=== PATIENT | male | born 1940 | race Caucasian/White ===

== ENCOUNTER 2016-08-29 18:30 | Inpatient (IN) ==
[2016-08-29] MEDS ORDERED: NITROGLYCERIN 2% OINT 1 INCH/GM PACK TOP STA (18:52)
[2016-08-29] MEDS ORDERED: ALUM/MAG/SIMETH/LIDO VISC 1:1 30 ML BOTTLE PO STA (18:52)
[2016-08-29] MEDS ORDERED: ONDANSETRON 4 MG/2 ML VIAL IV STA (18:52)
[2016-08-29] MEDS ORDERED: MORPHINE 2 MG/1 ML SYRINGE IV STA (18:52)
[2016-08-29] MEDS ORDERED: ASPIRIN 325 MG TABLET PO STA (18:52)
--- NOTE | 2016-08-29 18:56 | EKG Report ---
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
[2016-08-29] MEDS ORDERED: SODIUM CHLORIDE 0.9% 1,000 ML IV STA (19:02)
--- NOTE | 2016-08-29 19:02 | Emergency Department Note ---
Coleman Taylor Brittany, am scribing for, and in the presence of, Yared Conrad MD 19:01. Houston Taylor Charles R, MD, personally performed the services described in this documentation, ascribed by Cari Cee in my presence, and it is both accurate and complete [id number] . Arrival - Arrival Chief Complaint: Syncope Stated Complaint: syncopal episode ED Nursing Triage Note: Patient was out walking his dogs this evening; he reports walking the dogs one half mile when he felft faint and started having pain in his chest, he broke out in a sweat, experienced shortness of breath, he report his pain was 6/10 on a numerical pain scale. He fell backwards into the street; and has an abrasion on the back on his head. 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 Patient reports that he was out walking his dogs this evening and upon getting a mile and a half he became faint and began to have chest pain. He became diaphoretic , short of breath and attempted to sit down but fell backwards into the street. Patient reports that he had two falls two days ago with which he states he lost his balance. Patient reports a history of Cardiac Catheterization with stents placed x2 per Dr. Mix. At this time patient's chest pain has resolved. He is not having any shortness of breath, headache, or neck pain. He denies any slurred speech, facial numbness, or facial droop. Family reports that patient did have some bilateral hand tremors. He is currently on Plavix. He has a history of IDDM, but did not have a chance to check his levels today. Patient is on oxygen 2L via NC in room. Patient has no other complaint/pain in the ED at this time. 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[employer]) Consistency: now resolved Allergies/Adverse Reactions: Allergies Allergy/AdvReac Type Severity Reaction Status Date / Time No Known Allergies Allergy Unverified 05/10/15 11:00 Home Medications: Home Medications Medication Instructions Recorded Confirmed Type Allopurinol 300 mg PO DAILY 05/11/15 05/11/15 History Aspirin [Ecotrin] 81 mg PO DAILY 05/11/15 05/11/15 History Clopidogrel [Plavix] 75 mg PO DAILY 05/11/15 05/11/15 History Insulin Aspart [NovoLOG] 20 unit SUBCUT BID 05/11/15 05/11/15 History Insulin NPH Human Isophane 40 unit SUBCUT BID 05/11/15 05/11/15 History [NovoLIN N] Quinapril [Accupril] 20 mg PO DAILY 05/11/15 05/11/15 History Rosuvastatin Calcium [Crestor] 5 mg PO BEDTIME 05/11/15 05/11/15 History Review of System - Review of System 12 point system: reviewed and no additional remarkable complaints except as stated - Review of System Constitutional: Present: diaphoresis Respiratory: Present: respiratory distress Cardiovascular: Present: chest pain, syncope Medical,Surgical,& Family Hx - Medical History Cardio: History of: Hypertension, Cardiovascular Problems (cardiac stents x2 per Dr. Mix) Neurology: No history of: Seizures Endocrine: History of: Diabetes Mellitus (IDDM), Dyslipidemia Rheumatology: History of;: Rheumatoid Arthritis - Surgical History Abdominal Surgeries: Surgical HX of: Appendectomy, Colonoscopy - Family History Family History: Reports;: Family Stroke (grandmother) Comment Only: Family Heart Disease (aunt, and grandfather had a AR X2) - Social History Smoking Status: Never smoker Type of Drug Use: None Exam Vital Signs: Vital Signs Temperature 99.7 F H 08/29/16 18:31 Pulse Rate 92 H 08/29/16 19:00 Respiratory Rate 20 08/29/16 18:31 Blood Pressure 131/59 08/29/16 19:00 - General General appearance: alert, in no apparent distress - Head Head exam: Present: normocephalic, normal inspection. Absent: atraumatic ( large abrasion noted to the occipital region, pain at base) - Eye Eye exam: Present: normal appearance, PERRL, EOMI - ENT ENT exam: Present: normal exam, normal oropharynx - Neck Neck exam: Present: normal inspection, full ROM, trachea midline - Chest Chest inspection: Present: normal inspection, symmetric chest wall rise - Respiratory Respiratory exam: Present: normal lung sounds bilaterally. Absent: rales, rhonchi, wheezes - Cardiovascular Cardiovascular exam: Present: regular rate, irregular rhythm (irregularly regular), normal heart sounds. Absent: normal rhythm - Abdominal Exam Abdominal exam: Present: soft, normal bowel sounds. Absent: distention, tenderness - Extremities Exam Extremities exam: Present: normal inspection - Back Exam Back exam: Present: normal inspection - Neurological Exam Neurological exam: Present: alert, oriented X3, CN II-XII intact. Absent: motor sensory deficit - Psychiatric Psychiatric exam: Present: normal affect - Skin Skin exam: Present: warm, dry Course - Consultations Consultation #1: Dr. Gross consult to will admit patient for Dr. Mix. We a long discussion about whether this patient has pulmonary embolus or not. Patient is allergic to iodine and all IV dye. Patient does not wish to have this procedure done because of this. We are going to give him Lovenox and do a VQ lung scan in the morning and possibly CT PE in the morning if need be. Patient is aware of this information I explained to him the pros and cons of not doing the CT and missing this diagnosis we will going ahead treated patient agrees to plan we will place patient in telemetry Time: 20:56 Results - Labs CBC & BMP: 08/29/16 18:56 08/29/16 18:56 Lab Results: I have reviewed the patients labs Labs: Laboratory Tests 08/29/16 18:56 WBC 7.6 RBC 3.28 L Hgb 11.5 L Hct 34.5 L MCV 105.2 H MCH 35 H MCHC 33.3 RDW 12.7 Plt Count 149 MPV 10.5 Neut % (Auto) 87.4 H Lymph % (Auto) 4.9 L [place] % (Auto) 5.6 Eos % (Auto) 1.3 Baso % (Auto) 0.1 Neut # (Auto) 6.7 Lymph # (Auto) 0.4 L [place] # (Auto) 0.4 Eos # (Auto) 0.1 Baso # (Auto) 0.0 Immature Gran % 0.7 Nucleated RBC % 0.0 Immature Gran # 0.05 Nucleated RBCs # 0.00 Laboratory Tests 08/29/16 08/29/16 08/29/16 18:56 18:56 18:56 Total Counted Immature Gran % Nucleated RBC % Immature Gran # Segmented Neutrophils Lymphocytes Monocytes Nucleated RBCs # Platelet Estimate Hypochromasia Poikilocytosis Anisocytosis Macrocytosis Tear Drop Cells INR 1.0 PT Patient/Control Mix 10.1 D-Dimer, Quantitative 6.0 Sodium 139 Potassium 4.8 Chloride 109 H Carbon Dioxide 22 Anion Gap 12.8 BUN 24 H Creatinine 1.40 H GFR Calculation 67 BUN/Creatinine Ratio 17.00 Glucose 166 H Calculated Osmolality 284.5 Calcium 7.9 L Magnesium 1.8 Total Bilirubin < 0.39 AST 19 ALT 26 Alkaline Phosphatase 55 Troponin I B-Natriuretic Peptide 34 Total Protein 5.9 L Albumin 3.2 L Globulin 2.7 Albumin/Globulin Ratio 1.1 Lipase 349.0 08/29/16 08/29/16 18:56 18:56 Total Counted 100 Immature Gran % 0.7 Nucleated RBC % 0.0 Immature Gran # 0.05 Segmented Neutrophils 92 H Lymphocytes 5 L Monocytes 3 Nucleated RBCs # 0.00 Platelet Estimate Adequate Hypochromasia Slight Poikilocytosis 1+ Anisocytosis 2+ Macrocytosis 2+ Tear Drop Cells Few INR PT Patient/Control Mix D-Dimer, Quantitative Sodium Potassium Chloride Carbon Dioxide Anion Gap BUN Creatinine GFR Calculation BUN/Creatinine Ratio Glucose Calculated Osmolality Calcium Magnesium Total Bilirubin AST ALT Alkaline Phosphatase Troponin I 0.026 B-Natriuretic Peptide Total Protein Albumin Globulin Albumin/Globulin Ratio Lipase - Diagnostic Findings Procedure: CT: report reviewed by me (CT head: 1. 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 2. Left maxillary sinusitis. 3. No acute hemorrhage, infarction, or mass effect. 4. Small vessel ischemic change. CT Cervical Spine: 1. No fracture or dislocation. 2. Intervertebral disc space narrowing at C5-6, C6-7 and degenerative spondylosis. 3. Vascular calcinosis carotid arteries. ) Critical Care Time Critical Care Time: Yes Total Critical Care Time: 60 Disposition Clinical Impression: Vasovagal syncope, Possible pulmonary embolus, Chest pain Case discussed with: patient, patient's family Disposition: Still a Patient Condition: Guarded Time of Disposition: 20:58
[2016-08-29 19:04] LABS: Basophils % 0.1 % (0.0-0.8); Eosinophils # 0.1 10*3/uL (0.0-0.87); Eosinophils % 1.3 % (0.00-10.9); Hematocrit 34.5 VOL% (42.0-52.0); Hemoglobin 11.5 GM/DL (14.0-18.0); Immature Granulocytes % 0.7 %; Immature Granulocytes Absolute 0.05 #; Lymphocytes # 0.4 10*3/uL (1.4-4.0); Lymphocytes % 4.9 % (21.2-54.2); Mean Corpuscular HGB Conc 33.3 GM/DL (32-36); Mean Corpuscular Hemoglobin 35 PG (27-34); Mean Corpuscular Volume 105.2 FL (87-102); Mean Platelet Volume 10.5 FL (9.6-12.0); Monocytes # 0.4 10*3/uL (0.11-0.8); Monocytes % 5.6 % (1.7-12.7); Neutrophils # 6.7 10*3/uL (1.4-7.4); Neutrophils % 87.4 % (38.7-73.9); Platelet Count 149 T/CUMM (130-400); Red Blood Count 3.28 MC/CUMM (3.8-5.5); Red Cell Distribution Width 12.7 % (9.3-17.3); White Blood Count 7.6 T/CUMM (4-12)
[2016-08-29 19:16] LABS: PT Patient Result 10.1 SECS
--- NOTE | 2016-08-29 19:17 | CT Report ---
Exam: CT scan of brain without contrast Date: 08/29/2016 Indication: Status post fall head trauma pain Comparison: None Patient's classification: Emergency department Technical: Images were obtained from the skull base to the vertex without the use of intravenous contrast. Dose reduction was performed with decreasing kv and mA and automated exposure Total DLP: 1053.4 mGy*cm Findings: The brainstem is unremarkable. The exam reveals encephalomalacia change and old infarction suspected in the right cerebellum. Vascular plaque in the vertebral arteries present. The ventricles are slightly prominent with small vessel ischemic changes present. Calcification of the falx cerebri present. There is near complete opacification left maxillary sinus. Remaining paranasal sinuses and mastoids globes and sella are intact calvarium is unremarkable Impression: 1. 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 Left maxillary sinusitis 3. No acute hemorrhage, infarction or mass effect 4. Small vessel ischemic change. PROCEDURE INTERPRETED AT [facility] DEPARTMENT OF RADIOLOGY Final Report Signed by: Dr. Brandon Chisholm
--- NOTE | 2016-08-29 19:21 | CT Report ---
Exam:CT cervical spine wo con Date:08/29/2016 6:52 PM Indication: Neck pain secondary to fall Comparison: None Total DLP: 504.2 mGy*cm Technical: Sagittal axial and coronal imaging was available for review with out the use of intravenous contrast. Dose reduction was performed with decreasing kv and mA and automated exposure Findings: 7 cervical vertebral bodies are demonstrated. The vertebral body heights, lamina, pedicles, and posterior elements are intact. There is disc space narrowing at C5-C6 and C6-7 with degenerative spondylosis and posterior spur formation present most prominent at C5-6 but also seen C6-7. Attempted bridging syndesmophyte anteriorly at C5-C6 and C6-7. The arch at C1 and C2 and odontoid process are intact. The neural foramina canals are narrowed at C5-6 and C6-7 with facet arthropathy changes. Vascular calcifications of the carotid arteries present bilaterally. No other significant soft tissue abnormalities are demonstrated. Impression 1. No fracture or dislocation. 2. Intervertebral disc space narrowing at C5-6, C6-7 and degenerative spondylosis 3. Vascular calcinosis carotid arteries PROCEDURE INTERPRETED AT [facility] DEPARTMENT OF RADIOLOGY Final Report Signed by: Dr. Brandon Chisholm
--- NOTE | 2016-08-29 19:22 | XRay Report ---
Exam: XR chest 1V portable Date: 08/29/2016 6:52 PM Indication: Chest pain Comparison: 05/11/2015 Technical: AP portable Findings: Mild cardiac enlargement. No obvious consolidating infiltrates or effusions with mild thickening of the minor fissure. Bony structures reveal no acute findings. Impression: 1. Cardiomegaly without decompensation PROCEDURE INTERPRETED AT [facility] DEPARTMENT OF RADIOLOGY Final Report Signed by: Dr. Brandon Chisholm
[2016-08-29 19:23] LABS: Alanine Aminotransferase 26 U/L (16-61); Albumin 3.2 G/DL (3.4-5.0); Alkaline Phosphatase 55 U/L (45-117); Aspartate Amino Transferase 19 U/L (0-37); Bilirubin,Total < 0.39 MG/DL (0.2-1.0); Blood Urea Nitrogen 24 MG/DL (7-18); Calcium 7.9 MG/DL (8.5-10.1); Glucose 166 MG/DL (74-106); Magnesium 1.8 MG/DL (1.8-2.4); Osmolality,Calculated 284.5 MOS/KG (273-304); Potassium 4.8 MMOL/L (3.5-5.1); Sodium 139 MMOL/L (136-145); Total Protein 5.9 G/DL (6.4-8.3)
[2016-08-29] MEDS ORDERED: NITROGLYCERIN 2% OINT 1 INCH/GM PACK TOP ONE (19:26)
[2016-08-29] MEDS ORDERED: ONDANSETRON 4 MG/2 ML VIAL ONE (19:26)
[2016-08-29] MEDS ORDERED: MORPHINE 2 MG/1 ML SYRINGE ONE (19:27)
[2016-08-29] MEDS ORDERED: ALUM/MAG/SIMETH/LIDO VISC 1:1 30 ML BOTTLE PO ONE (19:27)
[2016-08-29] MEDS ORDERED: ASPIRIN 325 MG TABLET ONE (19:27)
[2016-08-29 19:28] LABS: Anisocytosis 2+; Lymphocytes 5 % (20-55); Macrocytosis 2+; Platelet Estimate Adequate; Poikilocytosis 1+; Segmented Neutrophils 92 % (50-85); Tear Drop Cells Few; Total Cells Counted 100
[2016-08-29 19:29] LABS: Hypochromasia Slight
[2016-08-29] MEDS ORDERED: ENOXAPARIN 100 MG/ML SYRINGE SUBCUT STA (20:35)
[2016-08-29] MEDS ORDERED: ENOXAPARIN 120 MG/0.8 ML SYRINGE SUBCUT ONE (20:40)
[2016-08-29] MEDS ORDERED: MAGNESIUM SULF RIDER 2 GM in PREMIX 1 EACH IV PRN (22:46)
[2016-08-29] MEDS ORDERED: ONDANSETRON 4 MG/2 ML VIAL IV PRN (22:46)
[2016-08-29] MEDS ORDERED: POTASSIUM CHLORIDE 20 MEQ TABLET PO PRN (22:46)
[2016-08-29] MEDS ORDERED: ALBUTEROL/IPRATROPIUM 3 ML NEB RESP TX PRN (22:46)
[2016-08-29] MEDS ORDERED: MORPHINE 2 MG/1 ML SYRINGE IV PRN (22:46)
[2016-08-29] MEDS ORDERED: DEXTROSE 50% 25 GM/50 ML VIAL IV PRN (22:46)
[2016-08-29] MEDS ORDERED: GLUCAGON 1 MG VIAL IM PRN (22:46)
[2016-08-29] MEDS ORDERED: SODIUM CHLORIDE 0.9% 1,000 ML IV SCH (22:46)
[2016-08-29] MEDS ORDERED: MAGNESIUM SULF RIDER 4 GM in PREMIX 1 EACH IV PRN (22:46)
[2016-08-30] MEDS: INSULIN REGULAR 100 UNIT/ML SUBCUT SCH ×5 (00:20→23:26)
[2016-08-30] MEDS: NITROGLYCERIN 2% OINT 1 INCH/GM PACK TOP SCH ×4 (00:21→18:27)
[2016-08-30 00:44] LABS: Apearance,Urine CLEAR (Clear); Bilirubin,Urine Negative (Negative); Blood, Urine Negative (Negative); Glucose,Urine (UA) Negative (Negative); Hyaline Casts,Urine 5 /LPF (0-3); Ketones,Urine Negative (Negative); Mucus,Urine Occasional /LPF (Occasional); Nitrite,Urine Negative (Negative); Protein,Urine 30 MG/DL; RBC,Urine <1 /HPF (0-4); Urine Color Yellow (Yellow); Urine Specific Gravity 1.015 (1.001-1.035); Urine Urobilinogen < 2.0 EU/DL (0.2-1.0); WBC,Urine 1 /HPF (0-6)
[2016-08-30 02:08] LABS: Basophils % 0.3 % (0.0-0.8); Eosinophils % 0.6 % (0.00-10.9); Hematocrit 31.9 VOL% (42.0-52.0); Hemoglobin 10.9 GM/DL (14.0-18.0); Immature Granulocytes % 0.3 %; Immature Granulocytes Absolute 0.02 #; Lymphocytes # 0.5 10*3/uL (1.4-4.0); Lymphocytes % 6.9 % (21.2-54.2); Mean Corpuscular HGB Conc 34.2 GM/DL (32-36); Mean Corpuscular Hemoglobin 35 PG (27-34); Mean Corpuscular Volume 103.6 FL (87-102); Mean Platelet Volume 10.8 FL (9.6-12.0); Monocytes # 0.4 10*3/uL (0.11-0.8); Monocytes % 5.7 % (1.7-12.7); Neutrophils # 5.6 10*3/uL (1.4-7.4); Neutrophils % 86.2 % (38.7-73.9); Platelet Count 141 T/CUMM (130-400); Red Blood Count 3.08 MC/CUMM (3.8-5.5); White Blood Count 6.5 T/CUMM (4-12)
[2016-08-30 02:23] LABS: Alanine Aminotransferase 22 U/L (16-61); Albumin 3.1 G/DL (3.4-5.0); Alkaline Phosphatase 49 U/L (45-117); Aspartate Amino Transferase 17 U/L (0-37); Bilirubin,Total < 0.39 MG/DL (0.2-1.0); Blood Urea Nitrogen 21 MG/DL (7-18); Calcium 8.1 MG/DL (8.5-10.1); Cholesterol 102 MG/DL (50-200); Glucose 84 MG/DL (74-106); HDL Cholesterol 45 MG/DL (40-60); Magnesium 1.9 MG/DL (1.8-2.4); Osmolality,Calculated 282.3 MOS/KG (273-304); Potassium 4.6 MMOL/L (3.5-5.1); Risk Ratio 2.27; Sodium 141 MMOL/L (136-145); Total Protein 5.6 G/DL (6.4-8.3); Triglycerides 73 MG/DL (2-150); VLDL CHOLESTEROL 14.6 MG/DL
--- NOTE | 2016-08-30 08:00 | EKG Report ---
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
--- NOTE | 2016-08-30 08:12 | Ultrasound Report ---
Bilateral lower extremity venous Doppler with vasques scale, Spectral Doppler and color-flow analysis performed and interpreted. Indication: Shortness of breath. Scanning over both common femoral veins, superficial femoral veins, greater saphenous veins and popliteal veins demonstrates normal compressibility, color flow, and augmentation. Impression: No evidence of DVT seen in either lower extremity. PROCEDURE INTERPRETED AT [facility] DEPARTMENT OF RADIOLOGY Final Report Signed by: Dr. Chery Peralta
--- NOTE | 2016-08-30 08:37 | Nuclear Medicine Report ---
Lung ventilation and perfusion imaging. Indication: Shortness of breath. Following aerosolized administration of 40 mCi technetium 99m DTPA, imaging was performed over the lungs in the standard projections. Following the intravenous administration of 5 mCi technetium 99m MAA, imaging was performed over the lung maurice in the same standard projections. Available for comparison, chest x-ray from yesterday. There is a matched nonsegmental ventilation and perfusion defect along the fissure of the left lung. No corresponding chest x-ray finding. Impression: Using revised PIOPED criteria, these findings are low probability for pulmonary thromboembolism. PROCEDURE INTERPRETED AT [facility] DEPARTMENT OF RADIOLOGY Final Report Signed by: Dr. Chery Peralta
--- NOTE | 2016-08-30 09:08 | EKG Report ---
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
--- NOTE | 2016-08-30 09:28 | Cardiology History & Physical ---
Assessment and Plan (1) CAD (coronary artery disease) Status: Acute Assessment and plan: 76-year-old male, CAD, status post remote LAD PCI, known diagonal disease. Presenting with chest pain panel nonspecific nipple changes, borderline troponin. Currently, chest pain-free, hemodynamically stable. Lower extremity DVT study, VQ scan negative. Recent frequent falls. -Continue aspirin, Plavix, full dose Lovenox for now. Add metoprolol 25 mg twice daily. -PPI -Continue statin. -He got a VQ scan last night, and is unable to walk on a treadmill. We will plan to proceed with pharmacological stress test tomorrow a.m. 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 Majano is a 76 year old male, followed by Dr. Mix. History of coronary artery disease, status post LAD stenting 2010, had a residual diagonal disease, which was managed medically. Stress test in 2014 showed anterolateral disease, which was also managed medically. He felt fine, but a few weeks ago, he tripped a few times and injured his knee. Yesterday, while walking his dog, he noticed sudden onset chest pain, diaphoresis and shortness of breath, and he tripped again. Admission EKG showed nonspecific repolarization changes, no significant change compared to prior EKG. Initial troponin was normal, the repeat set was borderline. Blood pressures heart rate is well controlled. He is now feeling better, the chest pain resolved. History of iv dye allergy but no issues with cardiac catheterizations in the past. He also has diabetes hyperlipidemia, controlled with insulin and statin. HTN, well controlled. DVT study and VQ scan was normal. Head CT showed all cerebrovascular disease. Got full dose aspirin and Lovenox in the ER, the pain resolved. Home Medications Medication Instructions Recorded Confirmed Type Allopurinol 300 mg PO DAILY 05/11/15 08/29/16 History Aspirin [Ecotrin] 81 mg PO DAILY 05/11/15 08/29/16 History Clopidogrel [Plavix] 75 mg PO DAILY 05/11/15 08/29/16 History Insulin Aspart [NovoLOG] 20 unit SUBCUT BID 05/11/15 08/29/16 History Insulin NPH Human Isophane 45 unit SUBCUT BID 05/11/15 08/29/16 History [NovoLIN N] Quinapril [Accupril] 20 mg PO DAILY 05/11/15 08/29/16 History Rosuvastatin Calcium [Crestor] 5 mg PO BEDTIME 05/11/15 08/29/16 History Allergies Allergy/AdvReac Type Severity Reaction Status Date / Time ivp dye Allergy HIVES Uncoded 08/29/16 21:35 12 point system: reviewed and no additional remarkable complaints except as stated Medical,Surgical,& Family Hx - Medical History Cardio: History of: Hypertension, Cardiovascular Problems (cardiac stents x2 per Dr. Mix) Neurology: No history of: Seizures Endocrine: History of: Diabetes Mellitus (IDDM), Dyslipidemia Rheumatology: History of;: Rheumatoid Arthritis - Surgical History Abdominal Surgeries: Surgical HX of: Appendectomy, Colonoscopy - Family History Family History: Reports;: Family Stroke (grandmother) Comment Only: Family Heart Disease (aunt, and grandfather had a MN X2) - Social History Smoking Status: Never smoker Type of Drug Use: None Cardiology Physical Exam - Constitutional Vitals: Vital Signs Temp Pulse Resp BP Pulse Ox 98.5 F 73 16 111/73 95 08/30/16 04:00 08/30/16 04:00 08/30/16 06:00 08/30/16 04:00 08/30/16 04:00 Intake and Output 08/29/16 08/30/16 08/30/16 23:59 07:59 15:59 Other: # Voids 450 Weight 108.862 kg 109.543 kg Patient Weight 08/30/16 23:59 Weight 109.543 kg General appearance: over weight - Head Head exam: Present: normal inspection - Eye Eye exam: Absent: conjunctival injection Pupils: Absent: dilated - ENT ENT exam: Present: normal exam - Neck Neck exam: Present: normal inspection - Respiratory Respiratory exam: Present: clear to auscultation bilaterally - Cardiovascular Cardiovascular exam: Present: regular rate and rhythm - GI/Abdominal GI/Abdominal exam: Present: normal bowel sounds - Extremities Exam Extremities exam: Present: normal inspection, normal capillary refill. Absent: edema - Back Exam Back exam: Present: normal inspection - Neurological Exam Neurological exam: Present: alert, oriented X3 - Psychiatric Psychiatric exam: Present: normal affect, normal mood. Absent: anxious - Skin Skin exam: Present: normal color, warm. Absent: cyanosis Result/EKG - Labs CBC & BMP: 08/30/16 01:09 08/30/16 01:08 Lab Results: I have reviewed the past 24 hour labs Labs: Laboratory Results - last 24 hr 08/29/16 08/29/16 08/30/16 22:47 23:23 00:35 WBC RBC Hgb Hct MCV MCH MCHC RDW Plt Count MPV Neut % (Auto) Lymph % (Auto) [place] % (Auto) Eos % (Auto) Baso % (Auto) Neut # (Auto) Lymph # (Auto) [place] # (Auto) Eos # (Auto) Baso # (Auto) Immature Gran % Nucleated RBC % Immature Gran # Nucleated RBCs # Sodium Potassium Chloride Carbon Dioxide Anion Gap BUN Creatinine GFR Calculation BUN/Creatinine Ratio Glucose POC Glucose 109 H Calculated Osmolality Calcium Magnesium Total Bilirubin AST ALT Alkaline Phosphatase Troponin I 0.044 B-Natriuretic Peptide Total Protein Albumin Globulin Albumin/Globulin Ratio Triglycerides Cholesterol LDL Cholesterol VLDL Cholesterol HDL Cholesterol Heart Disease Risk Ratio Urine Color Yellow Urine Appearance Clear Urine pH 5.0 Ur Specific [place] 1.015 Urine Protein 30 Urine Glucose (UA) Negative Urine Ketones Negative Urine Blood Negative Urine Nitrate Negative Urine Bilirubin Negative Urine Urobilinogen < 2.0 H Urine Leukocytes Negative Urine RBC <1 Urine WBC 1 Hyaline Casts 5 Urine Mucus Occasional Ur Culture Indicated? Not indicated 08/30/16 08/30/16 08/30/16 01:08 01:08 01:09 WBC 6.5 RBC 3.08 L Hgb 10.9 L Hct 31.9 L MCV 103.6 H MCH 35 H MCHC 34.2 RDW 13.0 Plt Count 141 MPV 10.8 Neut % (Auto) 86.2 H Lymph % (Auto) 6.9 L [place] % (Auto) 5.7 Eos % (Auto) 0.6 Baso % (Auto) 0.3 Neut # (Auto) 5.6 Lymph # (Auto) 0.5 L [place] # (Auto) 0.4 Eos # (Auto) 0.0 Baso # (Auto) 0.0 Immature Gran % 0.3 Nucleated RBC % 0.0 Immature Gran # 0.02 Nucleated RBCs # 0.00 Sodium 141 Potassium 4.6 Chloride 110 H Carbon Dioxide 23 Anion Gap 12.6 BUN 21 H Creatinine 1.20 GFR Calculation 80 BUN/Creatinine Ratio 17.00 Glucose 84 POC Glucose Calculated Osmolality 282.3 Calcium 8.1 L Magnesium 1.9 Total Bilirubin < 0.39 AST 17 ALT 22 Alkaline Phosphatase 49 Troponin I 0.064 H D B-Natriuretic Peptide Total Protein 5.6 L Albumin 3.1 L Globulin 2.5 Albumin/Globulin Ratio 1.2 Triglycerides 73 Cholesterol 102 LDL Cholesterol 53.0 VLDL Cholesterol 14.6 HDL Cholesterol 45 Heart Disease Risk Ratio 2.27 Urine Color Urine Appearance Urine pH Ur Specific [place] Urine Protein Urine Glucose (UA) Urine Ketones Urine Blood Urine Nitrate Urine Bilirubin Urine Urobilinogen Urine Leukocytes Urine RBC Urine WBC Hyaline Casts Urine Mucus Ur Culture Indicated? 08/30/16 08/30/16 01:09 06:58 WBC RBC Hgb Hct MCV MCH MCHC RDW Plt Count MPV Neut % (Auto) Lymph % (Auto) [place] % (Auto) Eos % (Auto) Baso % (Auto) Neut # (Auto) Lymph # (Auto) [place] # (Auto) Eos # (Auto) Baso # (Auto) Immature Gran % Nucleated RBC % Immature Gran # Nucleated RBCs # Sodium Potassium Chloride Carbon Dioxide Anion Gap BUN Creatinine GFR Calculation BUN/Creatinine Ratio Glucose POC Glucose 79 Calculated Osmolality Calcium Magnesium Total Bilirubin AST ALT Alkaline Phosphatase Troponin I B-Natriuretic Peptide 45 Total Protein Albumin Globulin Albumin/Globulin Ratio Triglycerides Cholesterol LDL Cholesterol VLDL Cholesterol HDL Cholesterol Heart Disease Risk Ratio Urine Color Urine Appearance Urine pH Ur Specific [place] Urine Protein Urine Glucose (UA) Urine Ketones Urine Blood Urine Nitrate Urine Bilirubin Urine Urobilinogen Urine Leukocytes Urine RBC Urine WBC Hyaline Casts Urine Mucus Ur Culture Indicated? - EKG EKG results: interpreted by me
[2016-08-30] MEDS ORDERED: ASPIRIN EC 81 MG TABLET PO SCH (09:30)
[2016-08-30] MEDS: ASPIRIN EC 325 MG TABLET PO SCH (09:46)
[2016-08-30] MEDS: PANTOPRAZOLE 40 MG TABLET PO SCH (09:46)
[2016-08-30] MEDS: CLOPIDOGREL 75 MG TABLET PO SCH (09:46)
[2016-08-30] MEDS: METOPROLOL TARTRATE 25 MG TABLET PO SCH ×2 (09:46→21:17)
[2016-08-30] MEDS: ENOXAPARIN 120 MG/0.8 ML SYRINGE SUBCUT SCH ×2 (09:47→21:17)
--- NOTE | 2016-08-30 13:52 | XRay Report ---
Exam: XR chest 2V Date: 08/30/2016 12:18 PM Indication: Shortness of breath Comparison: 08/29/2016 Technical: Shortness of breath Findings: External cardiac leads are present. The heart is mildly prominent.. No obvious consolidating infiltrates or effusions with minimal thickening of the minor fissure and a few reticular nodular densities. Compression deformity in the lower thoracic spine at approximately T11. Impression: 1. Mild cardiomegaly without decompensation 2. Mild thickening of the minor fissure 3. Compression deformity at T11 PROCEDURE INTERPRETED AT [facility] DEPARTMENT OF RADIOLOGY Final Report Signed by: Dr. Brandon Chsiholm
--- NOTE | 2016-08-30 19:07 | ECHO Report ---
Melecio Bruce 08/30/2016 Exam Date: 14:47 Referring Physician: Margaux Moran Technologist: DEVYN Age: 76 Ht (in): 74 Wt (lb): 241 MExam Location: [facility] [place] Gender: Echo [id number]: Chest pain, unspecified, Essential Indications: hypertension, Shortness of breath, IDDM, Hyperlipidemia, unspecified, CAD with previous stent BP: 109 / 76 HR: 70 SinusRhythm: Technical Quality: IMPRESSIONS Normal left ventricular cavity size. Mild left ventricular hypertrophy. Normal systolic function. Left ventricular ejection fraction is estimated at 55 %. Grade 2 diastolic dysfunction. Mildly increased right ventricular size, with normal systolic function. Moderate right atrial enlargement. Moderate pulmonary hypertension. Mild left atrial enlargement. Aortic valve sclerosis, without stenosis or regurgitation. MEASUREMENTS (Male / Female) Normal Values 2D ECHO LV Diastolic Diameter PLAX 5.5 cm 4.2 - 5.9 / 3.9 - 5.3 cm LV Systolic Diameter PLAX 3.4 cm LV Fractional Shortening PLAX 38.8 % IVS Diastolic Thickness 1.1 cm 0.6 - 1.0 / 0.6 - 0.9 cm LVPW Diastolic Thickness 1.1 cm 0.6 - 1.0 / 0.6 - 0.9 cm RV Internal Dim ED PLAX 3.2 cm Aortic Root Diameter 3.8 cm LA Systolic Diameter LX 3.9 cm 3.0 - 4.0 / 2.7 - 3.8 cm DOPPLER TR Peak Velocity 319.0 cm/s TR Peak Gradient 40.7 mmHg FINDINGS Left Ventricle Normal left ventricular cavity size. Mild left ventricular hypertrophy. Normal systolic function. Left ventricular ejection fraction is estimated at 55 %. Grade 2 diastolic dysfunction. Right Ventricle Mildly increased right ventricular size, with normal systolic function. Right Atrium Moderately increased right atrial size. Left Atrium Mild left atrial enlargement Mitral Valve Morphologically normal mitral valve without significant stenosis or prolapse. There is trace systolic and diastolic mitral regurgitation. Aortic Valve Aortic valve sclerosis without stenosis or regurgitation. Tricuspid Valve Morphologically normal tricuspid valve. Mild tricuspid valve regurgitation. Tricuspid regurgitation velocities suggest a PAP of 51 mmHg. Pulmonic Valve Morphologically normal pulmonic valve without significant stenosis. There is no pulmonic regurgitation. Pericardium Normal pericardium without effusion. Aorta Normal ascending aorta dimension. Harjit Kamara (Electronically Signed) 30 August 2016 Final Date: 19:06
[2016-08-30] MEDS: ROSUVASTATIN 10 MG TABLET PO SCH (21:16)
[2016-08-30] MEDS: INSULIN LISPRO 100 UNIT/ML SUBCUT SCH (23:26)
[2016-08-30] MEDS: INSULIN NPH 100 UNIT/ML SUBCUT SCH (23:26)
[2016-08-31] MEDS: NITROGLYCERIN 2% OINT 1 INCH/GM PACK TOP SCH ×4 (02:03→18:15)
[2016-08-31 04:49] LABS: Basophils % 0.3 % (0.0-0.8); Eosinophils # 0.2 10*3/uL (0.0-0.87); Eosinophils % 3.7 % (0.00-10.9); Hematocrit 29.4 VOL% (42.0-52.0); Hemoglobin 9.9 GM/DL (14.0-18.0); Immature Granulocytes % 0.3 %; Immature Granulocytes Absolute 0.02 #; Lymphocytes # 1.2 10*3/uL (1.4-4.0); Lymphocytes % 18.8 % (21.2-54.2); Mean Corpuscular HGB Conc 33.7 GM/DL (32-36); Mean Corpuscular Hemoglobin 35 PG (27-34); Mean Corpuscular Volume 103.5 FL (87-102); Mean Platelet Volume 10.6 FL (9.6-12.0); Monocytes # 0.7 10*3/uL (0.11-0.8); Monocytes % 11.4 % (1.7-12.7); Neutrophils # 4.1 10*3/uL (1.4-7.4); Neutrophils % 65.5 % (38.7-73.9); Platelet Count 119 T/CUMM (130-400); Red Blood Count 2.84 MC/CUMM (3.8-5.5); White Blood Count 6.2 T/CUMM (4-12)
[2016-08-31 05:21] LABS: Calcium 7.4 MG/DL (8.5-10.1); Magnesium 1.8 MG/DL (1.8-2.4); Osmolality,Calculated 279.7 MOS/KG (273-304); Potassium 4.2 MMOL/L (3.5-5.1)
[2016-08-31] MEDS ORDERED: REGADENOSON 0.4 MG/5 ML SYRINGE IV ONE (09:42)
--- NOTE | 2016-08-31 10:34 | Cardiology Progress Note ---
Assessment and Plan - Time spent with patient Time spent with patient: Greater than 30 minutes (1) Frequent falls Status: Acute Assessment and plan: See plan of care listed below Current Visit: Yes (2) CAD (coronary artery disease) Status: Chronic Assessment and plan: See plan of care listed below Current Visit: Yes (3) Chest pain Status: Resolved Assessment and plan: See plan of care listed below Current Visit: Yes (4) HTN (hypertension) Status: Chronic Assessment and plan: See plan of care listed below Current Visit: Yes (5) Hyperlipidemia Status: Chronic Assessment and plan: See plan of care listed below Current Visit: Yes (6) T2DM (type 2 diabetes mellitus) Status: Chronic Assessment and plan: See plan of care listed below Current Visit: Yes Cardiology - PN: Subj Interval history: HUMAN RESOURCES OFFICE MANAGER: DR. TAYLOR History of coronary artery disease, status post LAD stenting 2010, had a residual diagonal disease, which was managed medically. Stress test in 2014 showed anterolateral disease, which was also managed medically as well. Patient presented to ER after he noticed sudden onset chest pain and SOB while walking his dog. Admission EKG showed nonspecific repolarization changes, no significant change compared to prior EKG. Initial troponin was normal, the repeat set was borderline. Blood pressures heart rate is well controlled. He is now feeling better, the chest pain resolved. History of IV DYE allergy but no issues with cardiac catheterizations in the past. Also, history of diabete , hyperlipidemia. DVT study and VQ scan was normal. Head CT showed all cerebrovascular disease. Got full dose aspirin and Lovenox in the ER, the pain resolved. DAY 2: AUGUST 31, 2016: NPO for stress testing this morning. He has had no chest pain since admission. Echocardiogram reveals EF 55%, no significant valvular abnormality. Overall, he feels better. Labs are stable. Blood pressure well-controlled on betablocker, GERRY-Inhibitor. Decreasing Lovenox today. Continue ASA/Plavix. Possible discharge afternoon she had he received favorable results from stress test. 1. CHEST PAIN -NPO stress testing this morning. No recurrent chest pain. Cardiac biomarkers stable. 2. KNOWN CAD -continue current plan of care 3. HYPERTENSION -adequately controlled 4. DYSLIPIDEMIA -goal with lipid-lowering agent 5. DIABETES -plan of care. Well controlled 6. HIGH FALLS RISK - -Continue aspirin, Plavix, full dose Lovenox for now. Add metoprolol 25 mg twice daily. Exam (Progress Note) - Constitutional Vitals: Period Temp Pulse Resp BP Sys/Triana Pulse Ox Last 24 Hr 97.4 F-99.6 F 67-88 16-18 104-140/60-76 93-98 Exam: General: [Appears well with no apparent distress.] [Pleasant and cooperative. ] [Appears comfortable.] HEENT: [PERRL, normocephalic, quarter size ecchymotic area noted to the left scalp. Mucous membranes moist. No jaundice noted. Conjunctiva moist and clear , sclerae anicteric] Neck: No JVD/HJR, no thyromegaly or lymphadenopathy noted. No carotid bruit appreciated Cardiac: [Regular rate and rhythm.] [No murmur rub or gallop.] Lungs: [Clear to auscultation without accessory muscle use to assist the respiratory pattern.] Not requiring oxygen. Abdomen: Soft, bowel sounds normoactive. Nontender and nondistended. No abdominal bruit or thrill noted. No masses noted. Musculoskeletal: No fluid collection. Decreased range of motion is noted. Extremities: No clubbing, cyanosis noted. [ No edema noted.] Upper extremity pulses 2+. Lower extremity pulses 2+. Capillary refill less than 3 seconds. Skin: No unusual lesions or rashes. No skin breakdown appreciated. Neuro: Awake, alert and oriented 3. Moves all extremities well without hemiparesis or paralysis. No essential tremor is appreciated. Result/EKG - Labs CBC & BMP: 08/31/16 03:40 08/31/16 03:40 Lab Results: I have reviewed the past 24 hour labs Labs: Laboratory Results - last 24 hr 08/30/16 08/30/16 08/31/16 16:01 21:11 03:40 WBC 6.2 RBC 2.84 L Hgb 9.9 L Hct 29.4 L MCV 103.5 H MCH 35 H MCHC 33.7 RDW 13.0 Plt Count 119 L MPV 10.6 Neut % (Auto) 65.5 Lymph % (Auto) 18.8 L Crosby % (Auto) 11.4 Eos % (Auto) 3.7 Baso % (Auto) 0.3 Neut # (Auto) 4.1 Lymph # (Auto) 1.2 L Crosby # (Auto) 0.7 Eos # (Auto) 0.2 Baso # (Auto) 0.0 Immature Gran % 0.3 Nucleated RBC % 0.0 Immature Gran # 0.02 Nucleated RBCs # 0.00 Sodium Potassium Chloride Carbon Dioxide Anion Gap BUN Creatinine GFR Calculation BUN/Creatinine Ratio Glucose POC Glucose 248 H 177 H Calculated Osmolality Calcium Magnesium 08/31/16 08/31/16 03:40 07:30 WBC RBC Hgb Hct MCV MCH MCHC RDW Plt Count MPV Neut % (Auto) Lymph % (Auto) Crosby % (Auto) Eos % (Auto) Baso % (Auto) Neut # (Auto) Lymph # (Auto) Crosby # (Auto) Eos # (Auto) Baso # (Auto) Immature Gran % Nucleated RBC % Immature Gran # Nucleated RBCs # Sodium 138 Potassium 4.2 Chloride 107 Carbon Dioxide 21 Anion Gap 14.2 BUN 18 Creatinine 1.10 GFR Calculation 90 BUN/Creatinine Ratio 16.00 Glucose 148 H POC Glucose 153 H Calculated Osmolality 279.7 Calcium 7.4 L Magnesium 1.8 - Diagnostic Findings Procedure: Chest x-ray: report reviewed by me - EKG EKG results: interpreted by me EKG shows: sinus rhythm
[2016-08-31] MEDS: INSULIN REGULAR 100 UNIT/ML SUBCUT SCH ×4 (10:53→21:37)
--- NOTE | 2016-08-31 10:53 | Event Note ---
Underwent Lexiscan protocol stress testing this morning. Due to gait instability, avoided treadmill protocol. No chest pain heaviness or tightness. No ST changes. Frequent PACs versus paroxysmal atrial fibrillation noted. Now, to nuclear medicine for final scan. Dr. Kamara to read, interpreted, and advise
[2016-08-31] MEDS: INSULIN LISPRO 100 UNIT/ML SUBCUT SCH ×2 (10:54→21:37)
[2016-08-31] MEDS: INSULIN NPH 100 UNIT/ML SUBCUT SCH ×2 (10:54→21:37)
[2016-08-31] MEDS: METOPROLOL TARTRATE 25 MG TABLET PO SCH ×2 (15:34→21:36)
[2016-08-31] MEDS: ASPIRIN EC 325 MG TABLET PO SCH (16:31)
[2016-08-31] MEDS: QUINAPRIL 20 MG TABLET PO SCH (16:31)
[2016-08-31] MEDS: PANTOPRAZOLE 40 MG TABLET PO SCH (16:32)
[2016-08-31] MEDS: CLOPIDOGREL 75 MG TABLET PO SCH (16:32)
[2016-08-31] MEDS: ALLOPURINOL 300 MG TABLET PO SCH (16:32)
[2016-08-31] MEDS: ENOXAPARIN 120 MG/0.8 ML SYRINGE SUBCUT SCH (17:11)
[2016-08-31] MEDS ORDERED: POTASSIUM CHLORIDE RIDER 10 MEQ in PREMIX 1 EACH IV PRN (18:29)
[2016-08-31] MEDS ORDERED: MAGNESIUM SULF RIDER 2 GM in PREMIX 1 EACH IV PRN (18:29)
[2016-08-31] MEDS ORDERED: FAMOTIDINE 20 MG TABLET PO ONE (18:36)
[2016-08-31] MEDS ORDERED: LORATADINE 10 MG TABLET PO ONE (18:38)
--- NOTE | 2016-08-31 18:41 | History and Physical Update ---
Sedation H&P Update - History and Physical H&P was reviewed, the patient examined and there: are no changes in the patients condition since last H&P was completed. - Dictation Physical: refer to H&P completed by admitting physician - Physical Exam Mental Status: alert and oriented Heart: regular rate and rhythm Lung: clear to auscultation Abdomen: within normal limits Vitals: within normal limits (femoral pulses are 3+. Foot pulses are 2+.) - Sedation Plan for Sedation: minimal Patient Consent: Procedure disscussed with patient and patinet has consented., Risks and benefits were discussed with patient,including infection,, bleeding, injury to surrounding structures, seizure, temporary nerve, Patient understands and accepts potential risks/benefits and agrees to ( Left heart cath and possible PTCA or stent were discussed with the patient. The risk of the procedure include but are not limited to a small risk of injury to the vessel, abnormal heart rhythm, stroke, heart attack, need for emergent surgery, contrast reaction, restenosis, or . The patient voices understanding, agrees with the plan, and desires to proceed with the heart catheterization.), proceed. ASA Class: II Airway Assessment: Class III: Soft palate, base of uvula visible
[2016-08-31] MEDS: predniSONE 50 MG TABLET PO SCH ×2 (18:51→21:43)
[2016-08-31] MEDS: FAMOTIDINE 20 MG TABLET PO SCH (21:36)
[2016-08-31] MEDS: ROSUVASTATIN 10 MG TABLET PO SCH (21:36)
[2016-08-31] MEDS: SODIUM CHLORIDE 0.9% 1,000 ML IV SCH (21:44)
[2016-09-01] MEDS: NITROGLYCERIN 2% OINT 1 INCH/GM PACK TOP SCH ×4 (01:01→18:38)
[2016-09-01 04:32] LABS: Calcium 7.8 MG/DL (8.5-10.1); Osmolality,Calculated 280.2 MOS/KG (273-304); Potassium 4.9 MMOL/L (3.5-5.1)
[2016-09-01] MEDS: predniSONE 50 MG TABLET PO SCH ×2 (06:00→12:23)
[2016-09-01] MEDS ORDERED: diphenhydrAMINE CAP 25 MG CAPSULE PO ONE (07:00)
[2016-09-01] MEDS ORDERED: DIAZEPAM 5 MG TABLET PO ONE (07:00)
--- NOTE | 2016-09-01 07:30 | Nuclear Medicine Report ---
PHARMACOLOGICAL STRESS TEST TEST WAS INTERPRETED BY: Dr. Harjit Kamara INDICATION: Chest pain, elevated cardiac biomarkers. PROCEDURE: At rest, 10 mCi of Technetium-99 labeled Sestamibi was injected and rest images were obtained. The patient was unable to exercise on the treadmill. Lexiscan 0.4 mg was injected IV. Then, 30 mCi of Technetium-99 labeled Sestamibi was injected and post-stress images were obtained. FINDINGS: At rest, sinus rhythm, 66 beats per minute, blood pressure 136/82 mmHg. Sinus rhythm, with flat T-waves, without significant ST-T changes at rest. Post Lexiscan injection, the heart rate is 62 beats per minute, frequent PACs and PVCs. The blood pressure was 120/72 mmHg. There was no chest pain and there were no new significant ST-T changes. Rest and post-pharmacological stress gated and perfusion images were reviewed. There are no significant motion artifacts. The end-diastolic volume is 128 cc, the end-systolic volume is 66 cc, the calculated left ventricular ejection fraction is 56%. There is a small area in the anterior/epical region of severely decreased systolic thickening, with normal systolic thickening in the remaining areas. At rest, there is a moderate-sized area of moderately decreased activity in the anterior/ apical region at rest, which becomes severely photopenic post pharmacological stress. This is consistent with old myocardial disease, with superimposed ischemia. CONCLUSION: 1. CLINICALLY AND ELECTRICALLY NEGATIVE LEXISCAN STRESS TEST. 2. FREQUENT PACS AND PVCS. 3. MILDLY DILATED LEFT VENTRICLE, WITH PRESERVED SYSTOLIC FUNCTION, WITH WALL MOTION ABNORMALITIES DESCRIBED ABOVE. MODERATE-SIZED AREA IN THE ANTERIOR/ APICAL REGION OF OLD MYOCARDIAL DISEASE, WITH SUPERIMPOSED ISCHEMIA. 4. THIS IS A MODERATE-RISK TEST. Procedure performed and interpreted at [facility] Department of Radiology. [facility]
--- NOTE | 2016-09-01 08:02 | EKG Report ---
Stationary ECG Study [facility] Test Date: 09/01/2016 7:59:28 AM Pat Name: REBEKAH SIN Department: Room: 294 Gender: M Clinical Lab Assistant: YONATHAN : 1940 Requested by: Ciera Gross Order Number: [id number] Reading MD: CIERA GROSS Intervals [place] Rate: 54 P: 999 FL: 0 QRS: -19 QRSD: 115 T: -2 QT: 467 QTc: 452 Interpretive Statements normal sinus rhyth with APB's MODERATE INTRAVENTRICULAR CONDUCTION DELAY MODERATE VOLTAGE CRITERIA FOR LVH, CONSIDER NORMAL VARIANT NONSPECIFIC T-WAVE ABNORMALITY ABNORMAL RHYTHM ECG Electronically Signed On 09-02-16 14:03:58 CDT by CIERA GROSS [id number]
[2016-09-01] MEDS ORDERED: LIDOCAINE 1% 20 ML VIAL ONE (08:03)
[2016-09-01] MEDS ORDERED: MEPERIDINE 25 MG/1 ML VIAL ONE (08:03)
[2016-09-01] MEDS ORDERED: MIDAZOLAM 2 MG/2 ML VIAL ONE (08:03)
[2016-09-01] MEDS: CLOPIDOGREL 75 MG TABLET PO SCH (08:04)
[2016-09-01] MEDS: ASPIRIN EC 325 MG TABLET PO SCH (08:04)
[2016-09-01] MEDS: METOPROLOL TARTRATE 25 MG TABLET PO SCH ×2 (08:05→20:54)
[2016-09-01] MEDS ORDERED: HEPARIN 5,000 UNIT/1 ML VIAL ONE (08:49)
[2016-09-01] MEDS: QUINAPRIL 20 MG TABLET PO SCH (09:12)
[2016-09-01] MEDS: INSULIN REGULAR 100 UNIT/ML SUBCUT SCH ×4 (09:12→20:54)
[2016-09-01] MEDS: LORATADINE 10 MG TABLET PO SCH (09:12)
[2016-09-01] MEDS: INSULIN LISPRO 100 UNIT/ML SUBCUT SCH ×2 (09:13→20:52)
[2016-09-01] MEDS: INSULIN NPH 100 UNIT/ML SUBCUT SCH ×2 (09:13→20:53)
[2016-09-01] MEDS: ENOXAPARIN 40 MG/0.4 ML SYRINGE SUBCUT SCH (09:14)
[2016-09-01] MEDS: FAMOTIDINE 20 MG TABLET PO SCH ×2 (09:14→20:54)
[2016-09-01] MEDS: PANTOPRAZOLE 40 MG TABLET PO SCH (09:14)
[2016-09-01] MEDS: ALLOPURINOL 300 MG TABLET PO SCH (09:15)
--- NOTE | 2016-09-01 10:00 | Operative Note ---
Date of procedure: 09/01/16 Procedure Preformed: Left heart cath Coronary angiography Left ventriculography Angiogram of the right femoral artery--by follow-through from the LV gram Angio-Seal of the right femoral artery-successful Surgeon / Physician: Chris Gross Pilot Boat Operator: Yaima Cagle Post-op diagnosis: same (Known CAD, atypical chest pain, but a positive stress tests that suggest progression of coronary artery disease.) Findings: Impression: 60-70% distal left main lesion-best seen in the FILIPINO caudal or AP caudal view Significant disease in the midportion of a small diagonal and the ostium of a circumflex-90% and 90%, respectively Mild disease in the right coronary Normal global/regional LV systolic function, LVEF greater than 55% Moderate elevation of LVEDP, 25 mmHg Angio-Seal right femoral artery-successful Plan/recommendations: The patient will have risk factors optimized. It is apparent from the angiogram that the patient had progression of his left main and ostial circumflex disease. Because the left main is involved in the ostium of the circumflex comes out of that left main lesion, it is deemed he is best for coronary bypass grafting--not for coronary artery intervention. He will probably receive a vein graft to the LAD and MEÑO to the circumflex, because of the potential competitive flow from the left main. Otherwise, is been on Plavix chronically. Will stop his Plavix. if He remains stable overnight, he might be let go home off Plavix but on aspirin and be readmitted on Sunday for surgery on Sunday. I have consulted Dr. Irving. I conferred care with Dr. Irving. He is to discuss with the patient and his . I did discuss the situation with the patient and his . They voiced understanding and agree with the plan. The patient will be on antiplatelet medications to include aspirin indefinitely. Follow-up will be scheduled. Addenda: I saw the patient post-cath. the groin puncture site and distal pulse are stable. vital signs are stable and the patient will be observed closely overnight. Specimens: none sent Estimated blood loss: minimal Condition: stable Anesthesia: local, conscious sedation Disposition: floor
[2016-09-01] MEDS: SODIUM CHLORIDE 0.9% 1,000 ML IV SCH (10:55)
[2016-09-01] MEDS: ISOSORBIDE MONONITRATE 30 MG TABLET PO SCH (16:17)
--- NOTE | 2016-09-01 16:36 | Event Note ---
Left heart cath showed significant left main disease, CABG is planned next week. He has anemia, Mobitz type I second-degree AV block, low threshold unstable angina. I will keep you hospitalized over the weekend and get him ready for the surgery. Continue aspirin. The Plavix was discontinued. Add Imdur. Continue low-dose metoprolol. We will not increase, if stable, due to presence of Mobitz 1 second-degree AV block. Anemia. Check anemia studies, stool guaiac. I will not start him on full dose heparin, as he does not have ACS and the etiology of the anemia is uncertain. Continue statin, GERRY inhibitor. Keep on telemetry
--- NOTE | 2016-09-01 20:03 | Cardiology Operative Report ---
Date of Procedure:: 09/01/16 Post-op diagnosis: same (Known CAD, atypical chest pain, but a positive stress tests that suggest progression of coronary artery disease.) Procedure: Date of procedure: 09/01/16 Procedure Preformed: Left heart cath Coronary angiography Left ventriculography Angiogram of the right femoral artery--by follow-through from the [facility] Angio-Seal of the right femoral artery-successful Surgeon / Physician: Chris Gross Wind Farm Designer: Yaima Cagle Post-op diagnosis: same (Known CAD, atypical chest pain, but a positive stress tests that suggest progression of coronary artery disease.) procedure: The patient was prepped and draped in usual manner. Entered the right femoral artery via the Seldinger technique. I used a sheath and then used a JL4 and engaged left coronary. Multiple views were taken. I then exchanged for a JR4. Multiple views of the right coronary were taken. I then exchanged for an angled pigtail. I crossed the valve. Left ventricular end-diastolic pressures measured. Left ventriculography was done. Left ventricle pullback was done. The catheters were then removed from the patient. Please see the cath data sheets for the details of catheters used. Complications: None Hemodynamic data: LVEDP was 25 mmHg. Angiographic data: The left main coronary was large and had a distal 60-70 smooth narrowing. It involved the origin of the circumflex. The left anterior descending artery was large vessel with one major diagonal. The proximal to midportion major diagonal had 90% narrowing. It was about a 2.0 mm vessel. Otherwise, there are minimal luminal irregularities. The left circumflex system was moderate to large vessel with obtuse marginal post lateral branch. There was an ostial 90% narrowing. Otherwise there are minimal luminal irregularities in the circumflex The right coronary artery was large in size, dominant vessel with the PDA. there were minimal luminal irregularities. DANIELS left ventriculography revealed normal global/regional left ventricular systolic function. Overall ejection fraction was at least 55%. There is no significant mitral regurgitation. Angiogram of the right femoral artery revealed the puncture site to be in a large vessel, above the bifurcation. It was suitable for Angio-Seal. Findings: Impression: 60-70% distal left main lesion-best seen in the GARIMA caudal or AP caudal view Significant disease in the midportion of a small diagonal and the ostium of a circumflex-90% and 90%, respectively Mild disease in the right coronary Normal global/regional LV systolic function, LVEF greater than 55% Moderate elevation of LVEDP, 25 mmHg Angio-Seal right femoral artery-successful Plan/recommendations: The patient will have risk factors optimized. It is apparent from the angiogram that the patient had progression of his left main and ostial circumflex disease. Because the left main is involved in the ostium of the circumflex comes out of that left main lesion, it is deemed he is best for coronary bypass grafting--not for coronary artery intervention. He will probably receive a vein graft to the LAD and MEÑO to the circumflex, because of the potential competitive flow from the left main. Otherwise, is been on Plavix chronically. Will stop his Plavix. if He remains stable overnight, he might be let go home off Plavix but on aspirin and be readmitted on Sunday for surgery on Sunday. I have consulted Dr. Irving. I conferred care with Dr. Irving. He is to discuss with the patient and his . I did discuss the situation with the patient and his . They voiced understanding and agree with the plan. The patient will be on antiplatelet medications to include aspirin indefinitely. Follow-up will be scheduled. Addenda: I saw the patient post-cath. the groin puncture site and distal pulse are stable. vital signs are stable and the patient will be observed closely overnight. Specimens: none sent Estimated blood loss: minimal Condition: stable Anesthesia: local, conscious sedation Disposition: floor Additional CC's: Vito Mix Anesthesia: local, minimal conscious sedation Surgeon / Physician: Chris Gross Wind Farm Designer: other Estimated blood loss: minimal Specimens: none sent Condition: stable Disposition: floor
[2016-09-01] MEDS: ROSUVASTATIN 10 MG TABLET PO SCH (20:54)
[2016-09-02] MEDS: NITROGLYCERIN 2% OINT 1 INCH/GM PACK TOP SCH ×2 (00:35→06:06)
[2016-09-02 04:26] LABS: Basophils % 0.1 % (0.0-0.8); Hematocrit 26.5 VOL% (42.0-52.0); Hemoglobin 9.3 GM/DL (14.0-18.0); Immature Granulocytes Absolute 0.08 #; Lymphocytes # 0.6 10*3/uL (1.4-4.0); Mean Corpuscular HGB Conc 35.1 GM/DL (32-36); Mean Corpuscular Hemoglobin 35 PG (27-34); Mean Corpuscular Volume 99.3 FL (87-102); Monocytes # 0.4 10*3/uL (0.11-0.8); Monocytes % 5.6 % (1.7-12.7); Neutrophils # 6.5 10*3/uL (1.4-7.4); Neutrophils % 85.3 % (38.7-73.9); Platelet Count 131 T/CUMM (130-400); Red Blood Count 2.67 MC/CUMM (3.8-5.5); Red Cell Distribution Width 12.4 % (9.3-17.3); White Blood Count 7.7 T/CUMM (4-12)
[2016-09-02 04:55] LABS: Potassium 4.3 MMOL/L (3.5-5.1)
[2016-09-02 04:58] LABS: % Iron Saturation 34.7 % (18-50); Ferritin 302.1 ng/ml (26-388)
[2016-09-02 05:07] LABS: Folate 18.2 NG/ML (5.4-24.0)
--- NOTE | 2016-09-02 08:12 | EKG Report ---
Stationary ECG Study [facility] Test Date: 09/02/2016 8:13:02 AM Pat Name: REBEKAH SIN Department: Room: 294 Gender: M Balance And Hairspring Assembler: LAURIE : 1940 Requested by: Ciera Gross Order Number: [id number] Reading MD: CIERA GROSS Intervals [place] Rate: 42 P: 999 MS: 0 QRS: -9 QRSD: 104 T: 55 QT: 520 QTc: 464 Interpretive Statements 2nd degree AV block Mobitz I (wenckebach) NONSPECIFIC T-WAVE ABNORMALITY PROLONGED QT INTERVAL Electronically Signed On 09-02-16 14:06:33 CDT by CIERA GROSS [id number]
[2016-09-02] MEDS: INSULIN REGULAR 100 UNIT/ML SUBCUT SCH ×4 (08:54→23:33)
--- NOTE | 2016-09-02 09:09 | Cardiology Progress Note ---
Assessment and Plan (1) CAD (coronary artery disease) Status: Chronic Assessment and plan: 76-year-old male, CAD, status post remote LAD PCI, known diagonal disease. Presenting with chest pain panel nonspecific nipple changes, borderline troponin. Currently, chest pain-free, hemodynamically stable. Lower extremity DVT study, VQ scan negative. Recent frequent falls. -Continue aspirin -Plavix was discontinued in anticipation of CABG. -Currently is chest pain-free. Continue Imdur. -Continue statin. -Symptomatic bradycardia, Mobitz 1 second-degree AV block. Stop metoprolol. -Worsening anemia. He had mild macrocytosis, without significant vitamin deficiencies. Start multivitamins. Check occult stool blood. Follow CBC. Some of this may be dilutional -If the anemia becomes symptomatic, low threshold for transfusion. Has left main disease. -Elevated blood sugar. I will obtain hospitalist consult for blood sugar management. -CABG planned early next week. -Keep on telemetry. -Continue DVT prophylaxis with low-dose Lovenox. If anemia worsens, may need to switch to compression stockings only -PPI Current Visit: Yes (2) HTN (hypertension) Status: Chronic Current Visit: Yes (3) Hyperlipidemia Status: Chronic Current Visit: Yes (4) T2DM (type 2 diabetes mellitus) Status: Chronic Current Visit: Yes (5) Chest pain Status: Resolved Current Visit: Yes Cardiology - PN: Subj Interval history: He is feeling fine, no chest pain. Hematocrit keeps declining. There are no signs of active bleeding. The groin looks fine. Blood sugar is still high. Mildly symptomatic bradycardia, Mobitz 1 second-degree AV block on telemetry Exam (Progress Note) - Constitutional Vitals: Period Temp Pulse Resp BP Sys/Triana Pulse Ox Last 24 Hr 97.4 F-98.2 F 42-61 18-20 115-156/57-93 93-98 General appearance: over weight - Head Head exam: Present: normal inspection - Eye Eye exam: Absent: conjunctival injection Pupils: Absent: dilated - ENT ENT exam: Present: normal external ear exam - Neck Neck exam: Present: normal inspection - Respiratory Respiratory exam: Present: clear to auscultation bilaterally. Absent: decreased breath sounds, prolonged expiratory phase - Cardiovascular Cardiovascular exam: Present: bradycardia, irregular rhythm - GI/Abdominal GI/Abdominal exam: Present: normal bowel sounds - Extremities Exam Extremities exam: Present: normal inspection, normal capillary refill. Absent: edema - Back Exam Back exam: Present: normal inspection - Neurological Exam Neurological exam: Present: alert, oriented X3 - Psychiatric Psychiatric exam: Present: normal affect, normal mood - Skin Skin exam: Present: normal color, warm. Absent: cyanosis Result/EKG - Labs CBC & BMP: 09/02/16 03:03 09/02/16 03:03 Lab Results: I have reviewed the past 24 hour labs Labs: Laboratory Results - last 24 hr 09/01/16 09/01/16 09/01/16 11:27 15:05 19:54 WBC RBC Hgb Hct MCV MCH MCHC RDW Plt Count MPV Neut % (Auto) Lymph % (Auto) [place] % (Auto) Eos % (Auto) Baso % (Auto) Neut # (Auto) Lymph # (Auto) [place] # (Auto) Eos # (Auto) Baso # (Auto) Immature Gran % Nucleated RBC % Immature Gran # Nucleated RBCs # Absolute Retic Percent Retic Retic Hgb Equivalent Sodium Potassium Chloride Carbon Dioxide Anion Gap BUN Creatinine GFR Calculation BUN/Creatinine Ratio Glucose POC Glucose 314 H 380 H 370 H Calculated Osmolality Calcium Iron TIBC % Saturation Ferritin Vitamin B12 Folate 09/02/16 09/02/16 09/02/16 03:03 03:03 03:03 WBC 7.7 RBC 2.67 L Hgb 9.3 L Hct 26.5 L MCV 99.3 MCH 35 H MCHC 35.1 RDW 12.4 Plt Count 131 MPV 11.0 Neut % (Auto) 85.3 H Lymph % (Auto) 8.0 L [place] % (Auto) 5.6 Eos % (Auto) 0.0 Baso % (Auto) 0.1 Neut # (Auto) 6.5 Lymph # (Auto) 0.6 L [place] # (Auto) 0.4 Eos # (Auto) 0.0 Baso # (Auto) 0.0 Immature Gran % 1.0 Nucleated RBC % 0.0 Immature Gran # 0.08 Nucleated RBCs # 0.00 Absolute Retic 0.1 Percent Retic 2.0 H Retic Hgb Equivalent 33.5 Sodium 136 Potassium 4.3 Chloride 104 Carbon Dioxide 22 Anion Gap 14.3 BUN 28 H Creatinine 1.30 GFR Calculation 73 BUN/Creatinine Ratio 21.00 H Glucose 302 H POC Glucose Calculated Osmolality 288.0 Calcium 8.0 L Iron TIBC % Saturation Ferritin Vitamin B12 Folate 09/02/16 09/02/16 09/02/16 03:03 03:03 08:07 WBC RBC Hgb Hct MCV MCH MCHC RDW Plt Count MPV Neut % (Auto) Lymph % (Auto) [place] % (Auto) Eos % (Auto) Baso % (Auto) Neut # (Auto) Lymph # (Auto) [place] # (Auto) Eos # (Auto) Baso # (Auto) Immature Gran % Nucleated RBC % Immature Gran # Nucleated RBCs # Absolute Retic Percent Retic Retic Hgb Equivalent Sodium Potassium Chloride Carbon Dioxide Anion Gap BUN Creatinine GFR Calculation BUN/Creatinine Ratio Glucose POC Glucose 288 H Calculated Osmolality Calcium Iron 69 TIBC 199 L % Saturation 34.7 Ferritin 302.1 Vitamin B12 250 Folate 18.2 - EKG EKG results: interpreted by me Quality Measures - VTE Contraindication to Pharmacological VTE Prophylaxis: High Risk of Bleeding
--- NOTE | 2016-09-02 09:23 | Cardiothoracic Progress Note ---
Cardiothoracic Subjective Interval history: Patient is stable and pain-free. Of note is the finding of significant anemia. He has been on Plavix for a considerable period of time. He is going to be further evaluated for a cause of his anemia and may require transfusion preoperatively. I believe we all are in agreement that he needs to remain in the hospital until surgery which is tentatively planned for Sunday. Exam (Progress Note) - Constitutional Vitals: Period Temp Pulse Resp BP Sys/Triana Pulse Ox Last 24 Hr 97.4 F-98.2 F 42-61 18-20 115-156/57-93 93-98 Result/EKG - Labs CBC & BMP: 09/02/16 03:03 09/02/16 03:03 Labs: Laboratory Results - last 24 hr 09/01/16 09/01/16 09/01/16 11:27 15:05 19:54 WBC RBC Hgb Hct MCV MCH MCHC RDW Plt Count MPV Neut % (Auto) Lymph % (Auto) [place] % (Auto) Eos % (Auto) Baso % (Auto) Neut # (Auto) Lymph # (Auto) [place] # (Auto) Eos # (Auto) Baso # (Auto) Immature Gran % Nucleated RBC % Immature Gran # Nucleated RBCs # Absolute Retic Percent Retic Retic Hgb Equivalent Sodium Potassium Chloride Carbon Dioxide Anion Gap BUN Creatinine GFR Calculation BUN/Creatinine Ratio Glucose POC Glucose 314 H 380 H 370 H Calculated Osmolality Calcium Iron TIBC % Saturation Ferritin Vitamin B12 Folate 09/02/16 09/02/16 09/02/16 03:03 03:03 03:03 WBC 7.7 RBC 2.67 L Hgb 9.3 L Hct 26.5 L MCV 99.3 MCH 35 H MCHC 35.1 RDW 12.4 Plt Count 131 MPV 11.0 Neut % (Auto) 85.3 H Lymph % (Auto) 8.0 L [place] % (Auto) 5.6 Eos % (Auto) 0.0 Baso % (Auto) 0.1 Neut # (Auto) 6.5 Lymph # (Auto) 0.6 L [place] # (Auto) 0.4 Eos # (Auto) 0.0 Baso # (Auto) 0.0 Immature Gran % 1.0 Nucleated RBC % 0.0 Immature Gran # 0.08 Nucleated RBCs # 0.00 Absolute Retic 0.1 Percent Retic 2.0 H Retic Hgb Equivalent 33.5 Sodium 136 Potassium 4.3 Chloride 104 Carbon Dioxide 22 Anion Gap 14.3 BUN 28 H Creatinine 1.30 GFR Calculation 73 BUN/Creatinine Ratio 21.00 H Glucose 302 H POC Glucose Calculated Osmolality 288.0 Calcium 8.0 L Iron TIBC % Saturation Ferritin Vitamin B12 Folate 09/02/16 09/02/16 09/02/16 03:03 03:03 08:07 WBC RBC Hgb Hct MCV MCH MCHC RDW Plt Count MPV Neut % (Auto) Lymph % (Auto) [place] % (Auto) Eos % (Auto) Baso % (Auto) Neut # (Auto) Lymph # (Auto) [place] # (Auto) Eos # (Auto) Baso # (Auto) Immature Gran % Nucleated RBC % Immature Gran # Nucleated RBCs # Absolute Retic Percent Retic Retic Hgb Equivalent Sodium Potassium Chloride Carbon Dioxide Anion Gap BUN Creatinine GFR Calculation BUN/Creatinine Ratio Glucose POC Glucose 288 H Calculated Osmolality Calcium Iron 69 TIBC 199 L % Saturation 34.7 Ferritin 302.1 Vitamin B12 250 Folate 18.2 Quality Measures - VTE Contraindication to Pharmacological VTE Prophylaxis: High Risk of Bleeding
[2016-09-02] MEDS: ALLOPURINOL 300 MG TABLET PO SCH (09:53)
[2016-09-02] MEDS: LORATADINE 10 MG TABLET PO SCH (09:53)
[2016-09-02] MEDS: MULTIVITAMIN (BEROCCA) TABLET PO SCH (09:54)
[2016-09-02] MEDS: ASPIRIN 325 MG TABLET PO SCH (09:54)
[2016-09-02] MEDS: ISOSORBIDE MONONITRATE 30 MG TABLET PO SCH (09:55)
[2016-09-02] MEDS: FAMOTIDINE 20 MG TABLET PO SCH (09:55)
[2016-09-02] MEDS: PANTOPRAZOLE 40 MG TABLET PO SCH (09:57)
[2016-09-02] MEDS: QUINAPRIL 20 MG TABLET PO SCH (09:57)
[2016-09-02] MEDS: INSULIN NPH 100 UNIT/ML SUBCUT SCH ×2 (09:58→21:35)
[2016-09-02] MEDS: INSULIN LISPRO 100 UNIT/ML SUBCUT SCH ×2 (09:59→21:34)
[2016-09-02] MEDS: ENOXAPARIN 40 MG/0.4 ML SYRINGE SUBCUT SCH (10:05)
--- NOTE | 2016-09-02 13:33 | Hospitalist Consult Note ---
Assessment and Plan (1) CAD (coronary artery disease) Status: Chronic Assessment and plan: Patient for bypass surgery this Sunday it looks like they've stopped his Plavix Current Visit: Yes (2) HTN (hypertension) Status: Chronic Assessment and plan: Blood pressure currently controlled on GERRY inhibitor Current Visit: Yes (3) Hyperlipidemia Status: Chronic Current Visit: Yes (4) Frequent falls Status: Acute Assessment and plan: Not sure why he is having frequent falls but he can stand up in the room now without difficulty Current Visit: Yes (5) Anemia Status: Acute Assessment and plan: Patient does have a borderline low 12 level only given a shot today has normal iron studies will watch him throughout his hospitalization and transfuse as needed Current Visit: Yes History of Present Illness - Data of Consult Patient: new to practice Consult date: 09/02/16 Requesting Physician: Carmine Irving - Consult Narrative Reason for consult: medical management History of present illness: Mr. Majano is a 76 year old male who was admitted to the hospital with a history of known coronary artery disease status post stenting in 2010. Walking his dog prior to admission he had acute onset of chest pain diaphoresis shortness breath tripped and was admitted. Dr. Gross did a heart cath that showed a 6070% lesion left main begin disease in the circumflex. He was referred by Dr. Gross for these lesions for coronary bypass surgery. We're consulted to help manage his diabetes and medical issues. She is workup showed a hematocrit 26 with no active site of bleeding normal in all are elevated d-dimer MCV of 99.3, bili elevated creatinine 1.3, albumin of 3.1 B12 level of 250 and a folate level of 18.2. She currently complains of being a little bit weak and a little dizzy when he stands up but otherwise denies any kind of health problems he's having no chest pain now no shortness breath PND orthopnea CC: Chris Gross MD - Home Medications and Allergies Home Medications: Home Medications Medication Instructions Recorded Confirmed Type Allopurinol 300 mg PO DAILY 05/11/15 08/29/16 History Aspirin [Ecotrin] 81 mg PO DAILY 05/11/15 08/29/16 History Clopidogrel [Plavix] 75 mg PO DAILY 05/11/15 08/29/16 History Insulin Aspart [NovoLOG] 20 unit SUBCUT BID 05/11/15 08/29/16 History Insulin NPH Human Isophane 45 unit SUBCUT BID 05/11/15 08/29/16 History [NovoLIN N] Quinapril [Accupril] 20 mg PO DAILY 05/11/15 08/29/16 History Rosuvastatin Calcium [Crestor] 5 mg PO BEDTIME 05/11/15 08/29/16 History Allergies/Adverse Reactions: Allergies Allergy/AdvReac Type Severity Reaction Status Date / Time Iodinated Contrast Media - Allergy HIVES Verified 08/31/16 18:43 Oral and [Iodinated Contrast Media - IV Dye] Medical,Surgical,& Family Hx - Medical History Cardio: History of: Hypertension, Cardiovascular Problems (cardiac stents x2 per Dr. Mix) Neurology: No history of: Seizures Endocrine: History of: Diabetes Mellitus (IDDM), Dyslipidemia Rheumatology: History of;: Rheumatoid Arthritis - Surgical History Abdominal Surgeries: Surgical HX of: Appendectomy, Colonoscopy - Family History Family History: Reports;: Family Stroke (grandmother) Comment Only: Family Heart Disease (aunt, and grandfather had a [place] X2) - Social History Smoking Status: Never smoker Type of Drug Use: None Review of systems: Constitutional: No fatigue or fever Eyes: No loss of vision or blurred vision Ears: No decreased hearing no ear pain Mouth no lip swelling or sore throat Cardiovascular no chest pain no claudication Respiratory no cough or shortness of breath GI no abdominal pain or bloating or bleeding : No urinary frequency or hesitancy musculoskeletal: No Arthralgias or back pain Psychiatric: Confusion memory loss Endocrine: No polydipsia or polyuria Hematology: No easy bleeding or bruising 12 point review of systems otherwise unremarkable Exam - Constitutional Vitals: Period Temp Pulse Resp BP Sys/Triana Pulse Ox Last 24 Hr 97.7 F-98.2 F 42-61 18-20 108-156/45-76 96-98 Exam: Constitutional: Patient in no apparent distress. Eyes: Conjunctivae and lids are normal Pupils equal round react to light and accommodation irises are normal HEENT: External ears and nose without lesions masses or scarring Oropharynx without erythema exudates or thrush Neck is supple without masses no jugular venous distention Lungs: Lungs are clear to auscultation and resonant percussion Cardiovascular: Heart auscultation regular rate and rhythm without murmur rub or gallop PMI in the midclavicular line by palpation carotid arteries 2+ without bruits bowel abdomen: Bowel sounds normoactive no masses no rebound or regular tenderness no organomegaly Lymphatic: No anterior posterior cervical or axillary adenopathy Musculoskeletal: No active synovitis no malalignment of the joints good range of motion of upper and lower extremities Skin : normal to inspection and palpation Neurologic: Cranial nerves II through XII intact motor sensory intact DTRs 2+ negative cerebellar signs Psychiatric: Oriented to person place and time normal memory normal mood and affect normal judgment He has some scars on his knee where he fell this week Results - Labs CBC & BMP: 09/02/16 03:03 09/02/16 03:03 - Impressions Overall a good candidate for bypass surgery will follow in the perioperative period Quality Measures - VTE Contraindication to Pharmacological VTE Prophylaxis: High Risk of Bleeding
[2016-09-02] MEDS: ROSUVASTATIN 10 MG TABLET PO SCH (21:34)
[2016-09-03 04:11] LABS: Basophils % 0.1 % (0.0-0.8); Eosinophils % 0.3 % (0.00-10.9); Hematocrit 30.1 VOL% (42.0-52.0); Immature Granulocytes % 0.5 %; Immature Granulocytes Absolute 0.04 #; Lymphocytes # 1.7 10*3/uL (1.4-4.0); Lymphocytes % 21.6 % (21.2-54.2); Mean Corpuscular HGB Conc 33.2 GM/DL (32-36); Mean Corpuscular Hemoglobin 34 PG (27-34); Mean Corpuscular Volume 103.1 FL (87-102); Mean Platelet Volume 10.5 FL (9.6-12.0); Monocytes # 0.8 10*3/uL (0.11-0.8); Monocytes % 9.4 % (1.7-12.7); Neutrophils # 5.4 10*3/uL (1.4-7.4); Neutrophils % 68.1 % (38.7-73.9); Platelet Count 149 T/CUMM (130-400); Red Blood Count 2.92 MC/CUMM (3.8-5.5); Red Cell Distribution Width 12.6 % (9.3-17.3)
[2016-09-03 04:48] LABS: Calcium 8.3 MG/DL (8.5-10.1); Magnesium 2.2 MG/DL (1.8-2.4); Osmolality,Calculated 287.3 MOS/KG (273-304); Potassium 3.8 MMOL/L (3.5-5.1)
--- NOTE | 2016-09-03 08:27 | Cardiothoracic Progress Note ---
Cardiothoracic Subjective Interval history: Patient is pain free. His hematocrit this morning is 30% up from 26% yesterday. Overall he feels well and is ready for surgery on Sunday. Exam (Progress Note) - Constitutional Vitals: Period Temp Pulse Resp BP Sys/Triana Pulse Ox Last 24 Hr 97.9 F-98.7 F 59-84 18-20 108-140/43-71 94-99 Result/EKG - Labs CBC & BMP: 09/03/16 03:37 09/03/16 03:37 Labs: Laboratory Results - last 24 hr 09/02/16 09/02/16 09/02/16 12:07 16:17 20:49 WBC RBC Hgb Hct MCV MCH MCHC RDW Plt Count MPV Neut % (Auto) Lymph % (Auto) [place] % (Auto) Eos % (Auto) Baso % (Auto) Neut # (Auto) Lymph # (Auto) [place] # (Auto) Eos # (Auto) Baso # (Auto) Immature Gran % Nucleated RBC % Immature Gran # Nucleated RBCs # Sodium Potassium Chloride Carbon Dioxide Anion Gap BUN Creatinine GFR Calculation BUN/Creatinine Ratio Glucose POC Glucose 243 H 204 H 322 H Calculated Osmolality Calcium Magnesium 09/03/16 09/03/16 03:37 03:37 WBC 8.0 RBC 2.92 L Hgb 10.0 L Hct 30.1 L MCV 103.1 H MCH 34 MCHC 33.2 RDW 12.6 Plt Count 149 MPV 10.5 Neut % (Auto) 68.1 Lymph % (Auto) 21.6 [place] % (Auto) 9.4 Eos % (Auto) 0.3 Baso % (Auto) 0.1 Neut # (Auto) 5.4 Lymph # (Auto) 1.7 [place] # (Auto) 0.8 Eos # (Auto) 0.0 Baso # (Auto) 0.0 Immature Gran % 0.5 Nucleated RBC % 0.0 Immature Gran # 0.04 Nucleated RBCs # 0.00 Sodium 141 Potassium 3.8 Chloride 106 Carbon Dioxide 26 Anion Gap 12.8 BUN 29 H Creatinine 1.20 GFR Calculation 81 BUN/Creatinine Ratio 24.00 H Glucose 114 H POC Glucose Calculated Osmolality 287.3 Calcium 8.3 L Magnesium 2.2 Quality Measures - VTE Contraindication to Pharmacological VTE Prophylaxis: High Risk of Bleeding
--- NOTE | 2016-09-03 08:29 | Hospitalist Progress Note ---
Assessment and Plan (1) CAD (coronary artery disease) Status: Chronic Assessment and plan: Patient for bypass surgery this Sunday it looks like they've stopped his Plavix Current Visit: Yes (2) HTN (hypertension) Status: Chronic Assessment and plan: Blood pressure currently controlled on GERRY inhibitor Current Visit: Yes (3) Hyperlipidemia Status: Chronic Current Visit: Yes (4) Frequent falls Status: Acute Assessment and plan: Not sure why he is having frequent falls but he can stand up in the room now without difficulty Current Visit: Yes (5) Anemia Status: Acute Assessment and plan: Patient does have a borderline low 12 level only given a shot today has normal iron studies will watch him throughout his hospitalization and transfuse as needed Current Visit: Yes Hospitalist: Subjective Interval history: Patient without complaints this morning Exam - Constitutional Vitals: Period Temp Pulse Resp BP Sys/Triana Pulse Ox Last 24 Hr 97.9 F-98.7 F 60-84 18-20 108-140/43-71 94-99 Exam: Constitutional: Patient in no apparent distress. Eyes: Conjunctivae and lids are normal Pupils equal round react to light and accommodation irises are normal HEENT: External ears and nose without lesions masses or scarring Oropharynx without erythema exudates or thrush Neck is supple without masses no jugular venous distention Lungs: Lungs are clear to auscultation and resonant percussion Cardiovascular: Heart auscultation regular rate and rhythm without murmur rub or gallop PMI in the midclavicular line by palpation carotid arteries 2+ without bruits bowel abdomen: Bowel sounds normoactive no masses no rebound or regular tenderness no organomegaly Lymphatic: No anterior posterior cervical or axillary adenopathy Musculoskeletal: No active synovitis no malalignment of the joints good range of motion of upper and lower extremities Skin : normal to inspection and palpation Neurologic: Cranial nerves II through XII intact motor sensory intact DTRs 2+ negative cerebellar signs Psychiatric: Oriented to person place and time normal memory normal mood and affect normal judgment He has some scars on his knee where he fell this week Results - Labs CBC & BMP: 09/03/16 03:37 09/03/16 03:37 Quality Measures - VTE Contraindication to Pharmacological VTE Prophylaxis: High Risk of Bleeding
[2016-09-03] MEDS: INSULIN REGULAR 100 UNIT/ML SUBCUT SCH ×4 (09:31→21:15)
[2016-09-03] MEDS: INSULIN LISPRO 100 UNIT/ML SUBCUT SCH ×2 (09:32→21:59)
[2016-09-03] MEDS: MULTIVITAMIN (BEROCCA) TABLET PO SCH (09:32)
[2016-09-03] MEDS: ASPIRIN 325 MG TABLET PO SCH (09:32)
[2016-09-03] MEDS: ISOSORBIDE MONONITRATE 30 MG TABLET PO SCH (09:32)
[2016-09-03] MEDS: ENOXAPARIN 40 MG/0.4 ML SYRINGE SUBCUT SCH (09:32)
[2016-09-03] MEDS: PANTOPRAZOLE 40 MG TABLET PO SCH (09:32)
[2016-09-03] MEDS: INSULIN NPH 100 UNIT/ML SUBCUT SCH ×2 (09:33→22:00)
[2016-09-03] MEDS: QUINAPRIL 20 MG TABLET PO SCH (09:33)
[2016-09-03] MEDS: ALLOPURINOL 300 MG TABLET PO SCH (09:33)
--- NOTE | 2016-09-03 13:22 | Cardiology Progress Note ---
Assessment and Plan (1) CAD (coronary artery disease) Status: Chronic Assessment and plan: 76-year-old male, CAD, status post remote LAD PCI, known diagonal disease. Presenting with chest pain panel nonspecific nipple changes, borderline troponin. Currently, chest pain-free, hemodynamically stable. Lower extremity DVT study, VQ scan negative. Recent frequent falls. -Continue aspirin -Plavix was discontinued in anticipation of CABG. planned for Sunday -Currently is chest pain-free. Continue Imdur. -Continue statin. -Had mildly symptomatic bradycardia, Mobitz 1 second-degree AV block. Stopped metoprolol. Heart rate trend improved slightly. -Anemia. He had mild macrocytosis, without significant vitamin deficiencies. Started multivitamins. Check occult stool blood. Follow CBC. Some of this may be dilutional -If the anemia becomes symptomatic, low threshold for transfusion. Has left main disease. -Elevated blood sugar. Hospitalist following. -Keep on telemetry. -Continue DVT prophylaxis with low-dose Lovenox. If anemia worsens, may need to switch to compression stockings only -PPI Current Visit: Yes (2) HTN (hypertension) Status: Chronic Current Visit: Yes (3) Hyperlipidemia Status: Chronic Current Visit: Yes (4) T2DM (type 2 diabetes mellitus) Status: Chronic Current Visit: Yes (5) Chest pain Status: Resolved Current Visit: Yes Cardiology - PN: Subj Interval history: He is feeling fine. Hematocrit improved. Appetite good. Chest pain-free Exam (Progress Note) - Constitutional Vitals: Period Temp Pulse Resp BP Sys/Triana Pulse Ox Last 24 Hr 97.9 F-98.7 F 52-84 18-20 111-178/43-75 94-99 General appearance: normal weight, over weight - Head Head exam: Present: normal inspection, normocephalic - Eye Eye exam: Absent: conjunctival injection Pupils: Absent: dilated - ENT ENT exam: Present: normal external ear exam - Respiratory Respiratory exam: Present: clear to auscultation bilaterally. Absent: prolonged expiratory phase - Cardiovascular Cardiovascular exam: Present: regular rate and rhythm - GI/Abdominal GI/Abdominal exam: Present: normal bowel sounds. Absent: distended - Extremities Exam Extremities exam: Present: normal inspection, normal capillary refill. Absent: edema - Back Exam Back exam: Present: normal inspection - Neurological Exam Neurological exam: Present: alert, oriented X3 - Psychiatric Psychiatric exam: Present: normal affect, normal mood - Skin Skin exam: Present: normal color, warm. Absent: cyanosis Result/EKG - Labs CBC & BMP: 09/03/16 03:37 09/03/16 03:37 Lab Results: I have reviewed the past 24 hour labs Labs: Laboratory Results - last 24 hr 09/02/16 09/02/16 09/03/16 16:17 20:49 03:37 WBC 8.0 RBC 2.92 L Hgb 10.0 L Hct 30.1 L MCV 103.1 H MCH 34 MCHC 33.2 RDW 12.6 Plt Count 149 MPV 10.5 Neut % (Auto) 68.1 Lymph % (Auto) 21.6 [place] % (Auto) 9.4 Eos % (Auto) 0.3 Baso % (Auto) 0.1 Neut # (Auto) 5.4 Lymph # (Auto) 1.7 [place] # (Auto) 0.8 Eos # (Auto) 0.0 Baso # (Auto) 0.0 Immature Gran % 0.5 Nucleated RBC % 0.0 Immature Gran # 0.04 Nucleated RBCs # 0.00 Sodium Potassium Chloride Carbon Dioxide Anion Gap BUN Creatinine GFR Calculation BUN/Creatinine Ratio Glucose POC Glucose 204 H 322 H Calculated Osmolality Calcium Magnesium 09/03/16 09/03/16 09/03/16 03:37 08:35 12:29 WBC RBC Hgb Hct MCV MCH MCHC RDW Plt Count MPV Neut % (Auto) Lymph % (Auto) [place] % (Auto) Eos % (Auto) Baso % (Auto) Neut # (Auto) Lymph # (Auto) [place] # (Auto) Eos # (Auto) Baso # (Auto) Immature Gran % Nucleated RBC % Immature Gran # Nucleated RBCs # Sodium 141 Potassium 3.8 Chloride 106 Carbon Dioxide 26 Anion Gap 12.8 BUN 29 H Creatinine 1.20 GFR Calculation 81 BUN/Creatinine Ratio 24.00 H Glucose 114 H POC Glucose 125 H 109 H Calculated Osmolality 287.3 Calcium 8.3 L Magnesium 2.2 - EKG EKG results: interpreted by me Quality Measures - VTE Contraindication to Pharmacological VTE Prophylaxis: High Risk of Bleeding
[2016-09-03] MEDS: ROSUVASTATIN 10 MG TABLET PO SCH (21:57)
[2016-09-04 04:42] LABS: Basophils % 0.2 % (0.0-0.8); Eosinophils # 0.1 10*3/uL (0.0-0.87); Eosinophils % 1.7 % (0.00-10.9); Hematocrit 28.2 VOL% (42.0-52.0); Hemoglobin 9.8 GM/DL (14.0-18.0); Immature Granulocytes % 0.9 %; Immature Granulocytes Absolute 0.06 #; Lymphocytes # 1.4 10*3/uL (1.4-4.0); Lymphocytes % 22.4 % (21.2-54.2); Mean Corpuscular HGB Conc 34.8 GM/DL (32-36); Mean Corpuscular Hemoglobin 35 PG (27-34); Mean Corpuscular Volume 99.6 FL (87-102); Mean Platelet Volume 10.7 FL (9.6-12.0); Monocytes # 0.6 10*3/uL (0.11-0.8); Monocytes % 9.8 % (1.7-12.7); Neutrophils # 4.1 10*3/uL (1.4-7.4); Platelet Count 156 T/CUMM (130-400); Red Blood Count 2.83 MC/CUMM (3.8-5.5); Red Cell Distribution Width 12.4 % (9.3-17.3); White Blood Count 6.3 T/CUMM (4-12)
[2016-09-04 05:11] LABS: Calcium 8.1 MG/DL (8.5-10.1); Osmolality,Calculated 284.4 MOS/KG (273-304); Potassium 3.7 MMOL/L (3.5-5.1)
[2016-09-04] MEDS: QUINAPRIL 20 MG TABLET PO SCH (08:31)
[2016-09-04] MEDS: ASPIRIN 325 MG TABLET PO SCH (08:31)
[2016-09-04] MEDS: MULTIVITAMIN (BEROCCA) TABLET PO SCH (08:31)
[2016-09-04] MEDS: ALLOPURINOL 300 MG TABLET PO SCH (08:31)
[2016-09-04] MEDS: ISOSORBIDE MONONITRATE 30 MG TABLET PO SCH (08:31)
[2016-09-04] MEDS: PANTOPRAZOLE 40 MG TABLET PO SCH (08:31)
[2016-09-04] MEDS: INSULIN NPH 100 UNIT/ML SUBCUT SCH ×2 (08:32→21:22)
[2016-09-04] MEDS: INSULIN LISPRO 100 UNIT/ML SUBCUT SCH ×2 (08:32→21:22)
[2016-09-04] MEDS: ENOXAPARIN 40 MG/0.4 ML SYRINGE SUBCUT SCH (08:33)
[2016-09-04] MEDS: INSULIN REGULAR 100 UNIT/ML SUBCUT SCH ×4 (08:37→21:22)
[2016-09-04] MEDS ORDERED: DEXTROSE 50% 25 GM/50 ML VIAL IV PRN (09:20)
[2016-09-04] MEDS ORDERED: GLUCAGON 1 MG VIAL IM PRN (09:20)
--- NOTE | 2016-09-04 09:20 | Cardiothoracic Progress Note ---
Cardiothoracic Subjective Interval history: Patient is pain-free and feeling well. He is ambulating in his room. He is prepared for surgery on Sunday. Preoperative orders have been written. Exam (Progress Note) - Constitutional Vitals: Period Temp Pulse Resp BP Sys/Triana Pulse Ox Last 24 Hr 96.7 F-98.5 F 52-73 18-20 127-161/58-77 96-97 Result/EKG - Labs CBC & BMP: 09/04/16 03:32 09/04/16 03:32 Labs: Laboratory Results - last 24 hr 09/03/16 09/03/16 09/03/16 12:29 16:56 21:05 WBC RBC Hgb Hct MCV MCH MCHC RDW Plt Count MPV Neut % (Auto) Lymph % (Auto) [place] % (Auto) Eos % (Auto) Baso % (Auto) Neut # (Auto) Lymph # (Auto) [place] # (Auto) Eos # (Auto) Baso # (Auto) Immature Gran % Nucleated RBC % Immature Gran # Nucleated RBCs # Sodium Potassium Chloride Carbon Dioxide Anion Gap BUN Creatinine GFR Calculation BUN/Creatinine Ratio Glucose POC Glucose 109 H 185 H 310 H Calculated Osmolality Calcium Magnesium 09/04/16 09/04/16 09/04/16 03:32 03:32 07:58 WBC 6.3 RBC 2.83 L Hgb 9.8 L Hct 28.2 L MCV 99.6 MCH 35 H MCHC 34.8 RDW 12.4 Plt Count 156 MPV 10.7 Neut % (Auto) 65.0 Lymph % (Auto) 22.4 [place] % (Auto) 9.8 Eos % (Auto) 1.7 Baso % (Auto) 0.2 Neut # (Auto) 4.1 Lymph # (Auto) 1.4 [place] # (Auto) 0.6 Eos # (Auto) 0.1 Baso # (Auto) 0.0 Immature Gran % 0.9 Nucleated RBC % 0.0 Immature Gran # 0.06 Nucleated RBCs # 0.00 Sodium 140 Potassium 3.7 Chloride 106 Carbon Dioxide 25 Anion Gap 12.7 BUN 24 H Creatinine 1.10 GFR Calculation 89 BUN/Creatinine Ratio 21.00 H Glucose 133 H POC Glucose 162 H Calculated Osmolality 284.4 Calcium 8.1 L Magnesium 2.0 Quality Measures - VTE Contraindication to Pharmacological VTE Prophylaxis: High Risk of Bleeding
--- NOTE | 2016-09-04 10:14 | XRay Report ---
XR chest 2V Date: 09/04/2016 9:23 AM History: Coronary artery disease Comparison: 08/30/2016 Technique: PA and lateral chest Findings: The heart is borderline in size with calcification in the aortic knob. Chronic scarring in the lungs with left cardiac fat pad. Stable mediastinum. Old healed rib fractures with chronic T11 compression fracture. Superimposed degenerative changes. Impression: No acute cardiopulmonary pathology identified. PROCEDURE INTERPRETED AT [facility] DEPARTMENT OF RADIOLOGY Final Report Signed by: Dr. Ailyn Rosa
--- NOTE | 2016-09-04 10:21 | EKG Report ---
Stationary ECG Study [facility] Test Date: 09/04/2016 10:20:36 AM Pat Name: REBEKAH SIN Department: Room: 294 Gender: M Living Nurse: YONATHAN : 1940 Requested by: Carmine Lazaro Order Number: [id number] Reading MD: THO DE LA O Intervals [place] Rate: 81 P: 59 AL: 197 QRS: -16 QRSD: 97 T: 40 QT: 395 QTc: 432 Interpretive Statements SINUS RHYTHM WITH OCCASIONAL VENTRICULAR PREMATURE COMPLEXES NONSPECIFIC T-WAVE ABNORMALITY Electronically Signed On 09-04-16 17:10:39 CDT by THO DE LA O [email or web address]
[2016-09-04] MEDS: SODIUM CHLORIDE 0.9% 1,000 ML IV SCH (10:56)
--- NOTE | 2016-09-04 13:48 | Cardiology Progress Note ---
Cardiology - PN: Subj Interval history: Cardiology note 76-year-old man with left main disease and severe LAD and circumflex disease. Ejection fraction 55%. No pain. Telemetry shows steady sinus rhythm. O2 sat 96% on room air. Blood pressure 132/80. Right groin soft and dry. No bruit or hematoma. Distal pulses 2+. Lab data today Hemoglobin 9.8, hematocrit 28.2, white count 6.3 Potassium 3.7 BUN 24 creatinine 1.10 Impression Severe CAD including left main EF 35% Diabetes Hypertension Hypercholesterolemia Plan Routine groin precautions discussed. CABG Sunday a.m. Exam (Progress Note) - Constitutional Vitals: Period Temp Pulse Resp BP Sys/Triana Pulse Ox Last 24 Hr 96.7 F-98.5 F 62-73 18-20 111-161/56-77 95-97 Result/EKG - Labs CBC & BMP: 09/04/16 03:32 09/04/16 03:32 Labs: Laboratory Results - last 24 hr 09/03/16 09/03/16 09/04/16 16:56 21:05 03:32 WBC 6.3 RBC 2.83 L Hgb 9.8 L Hct 28.2 L MCV 99.6 MCH 35 H MCHC 34.8 RDW 12.4 Plt Count 156 MPV 10.7 Neut % (Auto) 65.0 Lymph % (Auto) 22.4 Grainger % (Auto) 9.8 Eos % (Auto) 1.7 Baso % (Auto) 0.2 Neut # (Auto) 4.1 Lymph # (Auto) 1.4 Grainger # (Auto) 0.6 Eos # (Auto) 0.1 Baso # (Auto) 0.0 Immature Gran % 0.9 Nucleated RBC % 0.0 Immature Gran # 0.06 Nucleated RBCs # 0.00 Sodium Potassium Chloride Carbon Dioxide Anion Gap BUN Creatinine GFR Calculation BUN/Creatinine Ratio Glucose POC Glucose 185 H 310 H Calculated Osmolality Calcium Magnesium 09/04/16 09/04/16 09/04/16 03:32 07:58 12:04 WBC RBC Hgb Hct MCV MCH MCHC RDW Plt Count MPV Neut % (Auto) Lymph % (Auto) Grainger % (Auto) Eos % (Auto) Baso % (Auto) Neut # (Auto) Lymph # (Auto) Grainger # (Auto) Eos # (Auto) Baso # (Auto) Immature Gran % Nucleated RBC % Immature Gran # Nucleated RBCs # Sodium 140 Potassium 3.7 Chloride 106 Carbon Dioxide 25 Anion Gap 12.7 BUN 24 H Creatinine 1.10 GFR Calculation 89 BUN/Creatinine Ratio 21.00 H Glucose 133 H POC Glucose 162 H 179 H Calculated Osmolality 284.4 Calcium 8.1 L Magnesium 2.0 Quality Measures - VTE Contraindication to Pharmacological VTE Prophylaxis: High Risk of Bleeding
--- NOTE | 2016-09-04 17:02 | Hospitalist Progress Note ---
Assessment and Plan (1) CAD (coronary artery disease) Status: Chronic Assessment and plan: CABG on Sunday Current Visit: Yes (2) T2DM (type 2 diabetes mellitus) Status: Chronic Assessment and plan: modify insulin Current Visit: Yes Hospitalist: Subjective Interval history: Plan for CABG on Sunday, blood sugars better today Exam - Constitutional Vitals: Period Temp Pulse Resp BP Sys/Triana Pulse Ox Last 24 Hr 96.7 F-98.5 F 62-73 18-20 111-161/56-77 95-98 Exam: Heart Rate-[RRR] Lungs-[CTAB] GI-[+bs soft, NT] Ext-[no edema] Results - Labs CBC & BMP: 09/04/16 03:32 09/04/16 03:32 Lab Results: I have reviewed the past 24 hour labs Quality Measures - VTE Contraindication to Pharmacological VTE Prophylaxis: High Risk of Bleeding
[2016-09-04] MEDS: ROSUVASTATIN 10 MG TABLET PO SCH (21:21)
[2016-09-04] MEDS: CHLORHEXIDINE 0.12% ORAL RINSE 60 ML BOTTLE SWISH/SPIT SCH (21:22)
[2016-09-05 03:27] LABS: ABG Base Excess 1.4 MMOL/L (-2.5-2.5); ABG HCO3 25.6 MMOL/L (20-26); ABG Oxygen Saturation 97.7 % (95-100); ABG PCO2 38.4 MM HG (35-48); ABG PH 7.431 (7.35-7.45); ABG PO2 90.8 MM HG (80-95); ABG TCO2 23.1 MMOL/L (23-27); Allen Test Positive; Pt O2 Delivery Device Room Air
[2016-09-05 04:56] LABS: Basophils % 0.2 % (0.0-0.8); Eosinophils # 0.3 10*3/uL (0.0-0.87); Eosinophils % 3.2 % (0.00-10.9); Hemoglobin 10.1 GM/DL (14.0-18.0); Immature Granulocytes % 0.9 %; Immature Granulocytes Absolute 0.08 #; Lymphocytes # 1.3 10*3/uL (1.4-4.0); Lymphocytes % 14.3 % (21.2-54.2); Mean Corpuscular HGB Conc 34.8 GM/DL (32-36); Mean Corpuscular Hemoglobin 35 PG (27-34); Mean Platelet Volume 10.4 FL (9.6-12.0); Monocytes # 0.7 10*3/uL (0.11-0.8); Monocytes % 7.5 % (1.7-12.7); Neutrophils # 6.6 10*3/uL (1.4-7.4); Neutrophils % 73.9 % (38.7-73.9); Platelet Count 159 T/CUMM (130-400); Red Blood Count 2.87 MC/CUMM (3.8-5.5); Red Cell Distribution Width 12.6 % (9.3-17.3); White Blood Count 8.9 T/CUMM (4-12)
[2016-09-05 05:32] LABS: Calcium 8.1 MG/DL (8.5-10.1); Magnesium 1.9 MG/DL (1.8-2.4); Osmolality,Calculated 286.1 MOS/KG (273-304); Potassium 3.8 MMOL/L (3.5-5.1)
--- NOTE | 2016-09-05 06:22 | Cardiothoracic Progress Note ---
Cardiothoracic Subjective Interval history: Patient is ready for surgery in the morning. Exam (Progress Note) - Constitutional Vitals: Period Temp Pulse Resp BP Sys/Triana Pulse Ox Last 24 Hr 98.0 F-98.6 F 52-78 18-20 89-149/54-79 93-99 Result/EKG - Labs CBC & BMP: 09/05/16 04:40 09/05/16 04:40 Labs: Laboratory Results - last 24 hr 09/04/16 09/04/16 09/04/16 07:58 12:04 16:35 WBC RBC Hgb Hct MCV MCH MCHC RDW Plt Count MPV Neut % (Auto) Lymph % (Auto) Taney % (Auto) Eos % (Auto) Baso % (Auto) Neut # (Auto) Lymph # (Auto) Taney # (Auto) Eos # (Auto) Baso # (Auto) Immature Gran % Nucleated RBC % Immature Gran # Nucleated RBCs # ABG pH ABG pCO2 ABG pO2 ABG HCO3 ABG Total CO2 ABG O2 Saturation ABG Base Excess FiO2 Sodium Potassium Chloride Carbon Dioxide Anion Gap BUN Creatinine GFR Calculation BUN/Creatinine Ratio Glucose POC Glucose 162 H 179 H 223 H Hemoglobin A1c Calculated Osmolality Calcium Magnesium Blood Type Antibody Screen Crossmatch 09/04/16 09/04/16 09/05/16 21:07 Unknown 03:10 WBC RBC Hgb Hct MCV MCH MCHC RDW Plt Count MPV Neut % (Auto) Lymph % (Auto) Taney % (Auto) Eos % (Auto) Baso % (Auto) Neut # (Auto) Lymph # (Auto) Taney # (Auto) Eos # (Auto) Baso # (Auto) Immature Gran % Nucleated RBC % Immature Gran # Nucleated RBCs # ABG pH 7.431 ABG pCO2 38.4 ABG pO2 90.8 ABG HCO3 25.6 ABG Total CO2 23.1 ABG O2 Saturation 97.7 ABG Base Excess 1.4 FiO2 21.00 Sodium Potassium Chloride Carbon Dioxide Anion Gap BUN Creatinine GFR Calculation BUN/Creatinine Ratio Glucose POC Glucose 261 H Hemoglobin A1c 9.4 H Calculated Osmolality Calcium Magnesium Blood Type Antibody Screen Crossmatch 09/05/16 09/05/16 09/05/16 04:40 04:40 04:40 WBC 8.9 D RBC 2.87 L Hgb 10.1 L Hct 29.0 L MCV 101.0 MCH 35 H MCHC 34.8 RDW 12.6 Plt Count 159 MPV 10.4 Neut % (Auto) 73.9 Lymph % (Auto) 14.3 L Taney % (Auto) 7.5 Eos % (Auto) 3.2 Baso % (Auto) 0.2 Neut # (Auto) 6.6 Lymph # (Auto) 1.3 L [place]aney # (Auto) 0.7 Eos # (Auto) 0.3 Baso # (Auto) 0.0 Immature Gran % 0.9 Nucleated RBC % 0.0 Immature Gran # 0.08 Nucleated RBCs # 0.00 ABG pH ABG pCO2 ABG pO2 ABG HCO3 ABG Total CO2 ABG O2 Saturation ABG Base Excess FiO2 Sodium 142 Potassium 3.8 Chloride 105 Carbon Dioxide 26 Anion Gap 14.8 BUN 19 H Creatinine 1.00 GFR Calculation 100 BUN/Creatinine Ratio 19.00 Glucose 138 H POC Glucose Hemoglobin A1c Calculated Osmolality 286.1 Calcium 8.1 L Magnesium 1.9 Blood Type A POSITIVE Antibody Screen Negative Crossmatch See Detail 09/05/16 Unknown WBC RBC Hgb Hct MCV MCH MCHC RDW Plt Count MPV Neut % (Auto) Lymph % (Auto) Taney % (Auto) Eos % (Auto) Baso % (Auto) Neut # (Auto) Lymph # (Auto) Taney # (Auto) Eos # (Auto) Baso # (Auto) Immature Gran % Nucleated RBC % Immature Gran # Nucleated RBCs # ABG pH ABG pCO2 ABG pO2 ABG HCO3 ABG Total CO2 ABG O2 Saturation ABG Base Excess FiO2 Sodium Potassium Chloride Carbon Dioxide Anion Gap BUN Creatinine GFR Calculation BUN/Creatinine Ratio Glucose POC Glucose Hemoglobin A1c Calculated Osmolality Calcium Magnesium Blood Type A POSITIVE Antibody Screen Crossmatch Quality Measures - VTE Contraindication to Pharmacological VTE Prophylaxis: High Risk of Bleeding
[2016-09-05] MEDS: ISOSORBIDE MONONITRATE 30 MG TABLET PO SCH (08:35)
[2016-09-05] MEDS: ALLOPURINOL 300 MG TABLET PO SCH (08:35)
[2016-09-05] MEDS: QUINAPRIL 20 MG TABLET PO SCH (08:35)
[2016-09-05] MEDS: ASPIRIN 325 MG TABLET PO SCH (08:35)
[2016-09-05] MEDS: MULTIVITAMIN (BEROCCA) TABLET PO SCH (08:35)
[2016-09-05] MEDS: PANTOPRAZOLE 40 MG TABLET PO SCH (08:35)
[2016-09-05] MEDS: ENOXAPARIN 40 MG/0.4 ML SYRINGE SUBCUT SCH (08:36)
[2016-09-05] MEDS: CHLORHEXIDINE 0.12% ORAL RINSE 60 ML BOTTLE SWISH/SPIT SCH (08:36)
[2016-09-05] MEDS: INSULIN NPH 100 UNIT/ML SUBCUT SCH (08:37)
[2016-09-05] MEDS: INSULIN REGULAR 100 UNIT/ML SUBCUT SCH ×4 (08:37→21:48)
[2016-09-05] MEDS: INSULIN LISPRO 100 UNIT/ML SUBCUT SCH (08:37)
[2016-09-05] MEDS: SODIUM CHLORIDE 0.9% 1,000 ML IV SCH (08:38)
[2016-09-05] MEDS ORDERED: CEFUROXIME INJ 1,500 MG in SODIUM CHLORIDE 0.9% 100 ML IV ONE (09:20)
[2016-09-05] MEDS ORDERED: INSULIN GLARGINE 100 UNIT/ML SUBCUT SCH (10:30)
--- NOTE | 2016-09-05 11:05 | Cardiology Progress Note ---
Cardiology - PN: Subj Interval history: Cardiology note 76-year-old man with severe three-vessel CAD and decreased ejection fraction. Telemetry has been benign. No ectopy or pauses No temperature. Regular rhythm no murmur or gallop. Clear lungs. Abdomen soft benign. Right groin has small ecchymotic bruise but no bruit or hematoma. Lab data today white count 8.9 hemoglobin 10.1 hematocrit 29.0 Sodium 142 potassium 3.8 chloride 105 CO2 26 BUN 19 creatinine 1.0 glucose 138 Impression Severe three-vessel CAD Ischemic cardiomyopathy EF 35% Diabetes Hypertension Hypercholesterolemia Plan CABG tomorrow Exam (Progress Note) - Constitutional Vitals: Period Temp Pulse Resp BP Sys/Triana Pulse Ox Last 24 Hr 97.4 F-98.6 F 52-81 18-20 89-144/54-79 93-99 Result/EKG - Labs CBC & BMP: 09/05/16 04:40 09/05/16 04:40 Labs: Laboratory Results - last 24 hr 09/04/16 09/04/16 09/04/16 12:04 16:35 21:07 WBC RBC Hgb Hct MCV MCH MCHC RDW Plt Count MPV Neut % (Auto) Lymph % (Auto) Cochran % (Auto) Eos % (Auto) Baso % (Auto) Neut # (Auto) Lymph # (Auto) [place]chran # (Auto) Eos # (Auto) Baso # (Auto) Immature Gran % Nucleated RBC % Immature Gran # Nucleated RBCs # ABG pH ABG pCO2 ABG pO2 ABG HCO3 ABG Total CO2 ABG O2 Saturation ABG Base Excess FiO2 Sodium Potassium Chloride Carbon Dioxide Anion Gap BUN Creatinine GFR Calculation BUN/Creatinine Ratio Glucose POC Glucose 179 H 223 H 261 H Hemoglobin A1c Calculated Osmolality Calcium Magnesium Blood Type Antibody Screen Crossmatch 09/04/16 09/05/16 09/05/16 Unknown 03:10 04:40 WBC RBC Hgb Hct MCV MCH MCHC RDW Plt Count MPV Neut % (Auto) Lymph % (Auto) [place]ran % (Auto) Eos % (Auto) Baso % (Auto) Neut # (Auto) Lymph # (Auto) [place]chran # (Auto) Eos # (Auto) Baso # (Auto) Immature Gran % Nucleated RBC % Immature Gran # Nucleated RBCs # ABG pH 7.431 ABG pCO2 38.4 ABG pO2 90.8 ABG HCO3 25.6 ABG Total CO2 23.1 ABG O2 Saturation 97.7 ABG Base Excess 1.4 FiO2 21.00 Sodium Potassium Chloride Carbon Dioxide Anion Gap BUN Creatinine GFR Calculation BUN/Creatinine Ratio Glucose POC Glucose Hemoglobin A1c 9.4 H Calculated Osmolality Calcium Magnesium Blood Type A POSITIVE Antibody Screen Negative Crossmatch See Detail 09/05/16 09/05/16 09/05/16 04:40 04:40 07:34 WBC 8.9 D RBC 2.87 L Hgb 10.1 L Hct 29.0 L MCV 101.0 MCH 35 H MCHC 34.8 RDW 12.6 Plt Count 159 MPV 10.4 Neut % (Auto) 73.9 Lymph % (Auto) 14.3 L Cochran % (Auto) 7.5 Eos % (Auto) 3.2 Baso % (Auto) 0.2 Neut # (Auto) 6.6 Lymph # (Auto) 1.3 L Cochran # (Auto) 0.7 Eos # (Auto) 0.3 Baso # (Auto) 0.0 Immature Gran % 0.9 Nucleated RBC % 0.0 Immature Gran # 0.08 Nucleated RBCs # 0.00 ABG pH ABG pCO2 ABG pO2 ABG HCO3 ABG Total CO2 ABG O2 Saturation ABG Base Excess FiO2 Sodium 142 Potassium 3.8 Chloride 105 Carbon Dioxide 26 Anion Gap 14.8 BUN 19 H Creatinine 1.00 GFR Calculation 100 BUN/Creatinine Ratio 19.00 Glucose 138 H POC Glucose 119 H Hemoglobin A1c Calculated Osmolality 286.1 Calcium 8.1 L Magnesium 1.9 Blood Type Antibody Screen Crossmatch 09/05/16 Unknown WBC RBC Hgb Hct MCV MCH MCHC RDW Plt Count MPV Neut % (Auto) Lymph % (Auto) [place]chran % (Auto) Eos % (Auto) Baso % (Auto) Neut # (Auto) Lymph # (Auto) Cochran # (Auto) Eos # (Auto) Baso # (Auto) Immature Gran % Nucleated RBC % Immature Gran # Nucleated RBCs # ABG pH ABG pCO2 ABG pO2 ABG HCO3 ABG Total CO2 ABG O2 Saturation ABG Base Excess FiO2 Sodium Potassium Chloride Carbon Dioxide Anion Gap BUN Creatinine GFR Calculation BUN/Creatinine Ratio Glucose POC Glucose Hemoglobin A1c Calculated Osmolality Calcium Magnesium Blood Type A POSITIVE Antibody Screen Crossmatch Quality Measures - VTE Contraindication to Pharmacological VTE Prophylaxis: High Risk of Bleeding
--- NOTE | 2016-09-05 11:50 | Hospitalist Progress Note ---
Assessment and Plan (1) CAD (coronary artery disease) Status: Chronic Assessment and plan: CABG on Sunday Current Visit: Yes (2) T2DM (type 2 diabetes mellitus) Status: Chronic Assessment and plan: refusing insulin, changing over to lantus Current Visit: Yes Hospitalist: Subjective Interval history: Patient refused his insulin today said it was dropping him too low. Blood sugars were not too low they have remained high. Patient is at his home dose. He needs to take the Lantus this morning the nurse will try to see if he will take it. We are cutting his record dose in half just prior to surgery per protocol Exam - Constitutional Vitals: Period Temp Pulse Resp BP Sys/Triana Pulse Ox Last 24 Hr 97.4 F-98.6 F 52-81 18-20 89-144/54-79 93-99 Exam: Heart Rate-[RRR] Lungs-[CTAB] GI-[+bs soft, NT] Ext-[no edema] Results - Labs CBC & BMP: 09/05/16 04:40 09/05/16 04:40 Lab Results: I have reviewed the past 24 hour labs Quality Measures - VTE Contraindication to Pharmacological VTE Prophylaxis: High Risk of Bleeding
[2016-09-05] MEDS: CHLORHEXIDINE 4% SOLN 118 ML BOTTLE TOP SCH (14:56)
[2016-09-05] MEDS: ROSUVASTATIN 10 MG TABLET PO SCH (21:48)
[2016-09-06] MEDS: CHLORHEXIDINE 4% SOLN 118 ML BOTTLE TOP SCH ×2 (03:52→11:23)
[2016-09-06] MEDS: CHLORHEXIDINE 0.12% ORAL RINSE 60 ML BOTTLE SWISH/SPIT SCH (03:52)
[2016-09-06 04:05] LABS: PT Patient Result 10.3 SECS
[2016-09-06] MEDS ORDERED: PAPAVERINE 60 MG/2 ML VIAL ONE (04:36)
[2016-09-06] MEDS ORDERED: VANCOMYCIN 1,000 MG VIAL ONE (04:36)
[2016-09-06] MEDS ORDERED: LORazepam 1 MG TABLET ONE (05:30)
[2016-09-06] MEDS ORDERED: FAMOTIDINE 20 MG TABLET PO ONE (05:30)
[2016-09-06] MEDS ORDERED: LORazepam 1 MG TABLET PO ONE (05:30)
[2016-09-06] MEDS ORDERED: CEFUROXIME INJ 1,500 MG in SODIUM CHLORIDE 0.9% 100 ML IV ONE (05:30)
[2016-09-06] MEDS ORDERED: FAMOTIDINE 20 MG TABLET ONE (05:32)
[2016-09-06] MEDS: QUINAPRIL 20 MG TABLET PO SCH (05:37)
[2016-09-06] MEDS: ISOSORBIDE MONONITRATE 30 MG TABLET PO SCH (05:38)
[2016-09-06 07:45] LABS: ABG Base Excess 1.7 MMOL/L (-2.5-2.5); ABG HCO3 25.5 MMOL/L (20-26); ABG Oxygen Saturation 99.2 % (95-100); ABG PH 7.456 (7.35-7.45); ABG PO2 377.4 MM HG (80-95); ABG TCO2 26.6 MMOL/L (23-27); Glucose Heart Surgery 172 MG/DL (74-106); Hemoglobin Heart Surgery 10.2 G/DL (14.0-18.0); Ionized Calcium Arterial 1.05 MMOL/L (1.21-1.46); PH Patient Temp Arterial 7.456; PO2 Patient Temp Arterial 377.4 MM HG; Patient Temperature 37 CELCIUS; Potassium Heart/CVR 3.7 MMOL/L (3.5-5.1); Sodium Heart/CVR 133 MMOL/L (135-145)
[2016-09-06 07:51] LABS: Apearance,Urine CLEAR (Clear); Bilirubin,Urine Negative (Negative); Blood, Urine Negative (Negative); Glucose,Urine (UA) Negative (Negative); Ketones,Urine Negative (Negative); Nitrite,Urine Negative (Negative); Protein,Urine Negative; RBC,Urine 1 /HPF (0-4); Urine Color Yellow (Yellow); Urine Specific Gravity 1.012 (1.001-1.035); Urine Urobilinogen < 2.0 EU/DL (0.2-1.0); WBC,Urine 1 /HPF (0-6)
[2016-09-06] MEDS ORDERED: INSULIN REGULAR DRIP 100 ML IV ONE (08:04)
[2016-09-06] MEDS ORDERED: POTASSIUM CHLORIDE RIDER 100 ML IV ONE (08:04)
[2016-09-06] MEDS ORDERED: PHENYLEPHRINE DRIP 40 MG/250 ML PREMIX IV ONE (08:04)
[2016-09-06] MEDS ORDERED: NITROPRUSSIDE 50 MG/2 ML VIAL ONE ×2 (08:04→12:08)
[2016-09-06 09:01] LABS: Hematocrit Heart Surgery 27.6 PERCENT (42-52); Hemoglobin Heart Surgery 8.9 G/DL (14.0-18.0); PCO2 Patient Temp Venous 43.1 MM HG; PH Patient Temp Venous 7.393; PO2 Patient Temp Venous 46.5 MM HG; Potassium Heart/CVR 4.7 MMOL/L (3.5-5.1); VBG Base Excess 1.2 MEQ/L (0-4); VBG HCO3 25.3 MEQ/L (24-28); VBG Oxygen Saturation 82.7 %; VBG PCO2 43.1 MMHG (41-51); VBG PH 7.393; VBG PO2 46.5 MMHG (17-40)
[2016-09-06] MEDS ORDERED: INSULIN REGULAR 100 UNIT/ML ONE (09:13)
[2016-09-06 09:39] LABS: Hematocrit Heart Surgery 26.3 PERCENT (42-52); Hemoglobin Heart Surgery 8.4 G/DL (14.0-18.0); PCO2 Patient Temp Venous 40.2 MM HG; PH Patient Temp Venous 7.427; PO2 Patient Temp Venous 35.2 MM HG; Potassium Heart/CVR 3.9 MMOL/L (3.5-5.1); VBG Base Excess 2.1 MEQ/L (0-4); VBG HCO3 25.8 MEQ/L (24-28); VBG PCO2 40.2 MMHG (41-51); VBG PH 7.427; VBG PO2 35.2 MMHG (17-40)
[2016-09-06 10:12] LABS: ABG Base Excess 1.3 MMOL/L (-2.5-2.5); ABG HCO3 25.6 MMOL/L (20-26); ABG Oxygen Saturation 99.8 % (95-100); ABG PCO2 39.1 MM HG (35-48); ABG PH 7.425 (7.35-7.45); ABG TCO2 23.6 MMOL/L (23-27); Glucose Heart Surgery 232 MG/DL (74-106); Hematocrit Heart Surgery 27.6 PERCENT (42-52); Hemoglobin Heart Surgery 8.9 G/DL (14.0-18.0); Ionized Calcium Arterial 1.14 MMOL/L (1.21-1.46); PCO2 Patient Temp Arterial 39.1 MMHG; PH Patient Temp Arterial 7.425; Patient Temperature 37 CELCIUS; Potassium Heart/CVR 4.1 MMOL/L (3.5-5.1); Sodium Heart/CVR 133 MMOL/L (135-145)
[2016-09-06] MEDS ORDERED: MANNITOL 12.5 GM/50 ML VIAL IV ONE (10:19)
[2016-09-06] MEDS ORDERED: HEPARIN 10,000 UNIT/10 ML VIAL ONE (10:19)
[2016-09-06] MEDS ORDERED: PROTAMINE SULFATE 250 MG/25 ML VIAL IV ONE (10:19)
[2016-09-06] MEDS ORDERED: SODIUM BICARBONATE 50 MEQ/50 ML SYRINGE IV ONE (10:19)
[2016-09-06] MEDS ORDERED: DEXTROSE 5% KCL 20 MEQ 20 MEQ/1,000 ML BAG IV ONE (10:19)
[2016-09-06] MEDS ORDERED: ALBUMIN 25% 25 GM/100 ML VIAL IV ONE (10:19)
[2016-09-06] MEDS ORDERED: PHENYLEPHRINE DRIP 20 MG/250 ML PREMIX IV ONE ×2 (10:19→11:26)
[2016-09-06] MEDS ORDERED: methylPREDNISolone SOD SUC 1,000 MG/8 ML VIAL ONE (10:19)
[2016-09-06] MEDS ORDERED: FUROSEMIDE 20 MG/2 ML VIAL ONE (10:19)
[2016-09-06] MEDS ORDERED: MAGNESIUM SULFATE 1 GM/2 ML VIAL ONE (10:19)
[2016-09-06] MEDS ORDERED: POTASSIUM CHLORIDE 20 MEQ/10 ML VIAL ONE (10:20)
[2016-09-06] MEDS ORDERED: PROTAMINE SULFATE 50 MG/5 ML VIAL IV ONE ×3 (10:20→12:12)
[2016-09-06] MEDS ORDERED: ONDANSETRON 4 MG/2 ML VIAL IV PRN (10:53)
[2016-09-06] MEDS ORDERED: LACTATED RINGERS 250 ML IV PRN (10:53)
[2016-09-06] MEDS ORDERED: PHENYLEPHRINE DRIP 40 MG/250 ML PREMIX IV PRN (10:53)
[2016-09-06] MEDS ORDERED: CALCIUM CHLORIDE 1,000 MG/10 ML SYRINGE IV PRN (10:53)
[2016-09-06] MEDS ORDERED: MORPHINE 10 MG/1 ML VIAL IV PRN (10:53)
[2016-09-06] MEDS ORDERED: ACETAMINOPHEN 650 MG SUPP RECTAL PRN (10:53)
[2016-09-06] MEDS ORDERED: VECURONIUM 10 MG VIAL IV PRN ×2 (10:53)
[2016-09-06] MEDS ORDERED: INSULIN REGULAR 100 UNIT/ML IV ONE (10:53)
[2016-09-06] MEDS ORDERED: MIDAZOLAM 2 MG/2 ML VIAL IV PRN (10:53)
[2016-09-06] MEDS ORDERED: MAGNESIUM SULF RIDER 4 GM in PREMIX 1 EACH IV PRN (10:53)
[2016-09-06] MEDS ORDERED: DEXTROSE 50% 25 GM/50 ML VIAL IV PRN ×2 (10:53)
[2016-09-06] MEDS ORDERED: MAGNESIUM SULF RIDER 2 GM in PREMIX 1 EACH IV PRN (10:53)
[2016-09-06] MEDS ORDERED: MORPHINE 2 MG/1 ML SYRINGE IV PRN (10:53)
[2016-09-06] MEDS ORDERED: NITROPRUSSIDE 100 MG in DEXTROSE 5% 250 ML IV PRN (10:53)
[2016-09-06] MEDS ORDERED: INSULIN REGULAR DRIP 100 ML IV SCH (11:00)
[2016-09-06] MEDS ORDERED: SODIUM CHLORIDE 0.45% 1,000 ML IV SCH ×2 (11:00)
[2016-09-06 11:06] LABS: ABG Base Excess 1.7 MMOL/L (-2.5-2.5); ABG HCO3 25.2 MMOL/L (20-26); ABG Oxygen Saturation 98.5 % (95-100); ABG PCO2 35.3 MM HG (35-48); ABG PH 7.472 (7.35-7.45); ABG PO2 154.9 MM HG (80-95); ABG TCO2 26.3 MMOL/L (23-27); Basophils % 0.1 % (0.0-0.8); Eosinophils # 0.1 10*3/uL (0.0-0.87); Eosinophils % 1.6 % (0.00-10.9); Glucose Heart Surgery 216 MG/DL (74-106); Hematocrit 26.8 VOL% (42.0-52.0); Hemoglobin 9.3 GM/DL (14.0-18.0); Hemoglobin Heart Surgery 10.3 G/DL (14.0-18.0); Immature Granulocytes % 2.2 %; Immature Granulocytes Absolute 0.19 #; Lymphocytes # 0.4 10*3/uL (1.4-4.0); Lymphocytes % 4.5 % (21.2-54.2); Mean Corpuscular HGB Conc 34.7 GM/DL (32-36); Mean Corpuscular Hemoglobin 35 PG (27-34); Mean Corpuscular Volume 100.4 FL (87-102); Mean Platelet Volume 10.1 FL (9.6-12.0); Monocytes # 0.3 10*3/uL (0.11-0.8); Monocytes % 3.8 % (1.7-12.7); Neutrophils # 7.7 10*3/uL (1.4-7.4); Neutrophils % 87.8 % (38.7-73.9); Platelet Count 114 T/CUMM (130-400); Red Blood Count 2.67 MC/CUMM (3.8-5.5); Red Cell Distribution Width 14.5 % (9.3-17.3); White Blood Count 8.8 T/CUMM (4-12)
[2016-09-06 11:20] LABS: INR 1.1; PT Patient Result 11.5 SECS; Partial Thromboplastin Time 25.5 SECS (0-40)
[2016-09-06] MEDS ORDERED: CALCIUM CHLORIDE 1,000 MG/10 ML SYRINGE IV ONE (11:26)
[2016-09-06] MEDS ORDERED: SEVOFLURANE 1 UNIT/15 MINUTE INH ONE (11:26)
[2016-09-06] MEDS ORDERED: MIDAZOLAM 10 MG/2 ML VIAL ONE ×2 (11:27)
[2016-09-06] MEDS ORDERED: SUFentanil 250 MCG/5 ML AMP ONE (11:27)
[2016-09-06] MEDS ORDERED: NITROGLYCERIN DRIP 50 MG/250 ML BOTTLE IV ONE (11:28)
[2016-09-06] MEDS ORDERED: LACTATED RINGERS 1,000 ML IV ONE (11:28)
[2016-09-06] MEDS ORDERED: SODIUM CHLORIDE 0.9% 250 ML IV ONE (11:28)
[2016-09-06] MEDS ORDERED: SODIUM CHLORIDE 0.9% 1,000 ML IV ONE (11:28)
[2016-09-06] MEDS ORDERED: VECURONIUM 10 MG VIAL IV ONE (11:28)
[2016-09-06] MEDS ORDERED: SODIUM CHLORIDE 0.9% 100 ML IV ONE (11:28)
[2016-09-06] MEDS ORDERED: MINERAL OIL/PETROLATUM OPH OINT 3.5 GM TUBE ONE (11:28)
[2016-09-06] MEDS ORDERED: AMINOCAPROIC ACID 5,000 MG/20 ML VIAL IV ONE (11:28)
[2016-09-06] MEDS ORDERED: HEPARIN/NACL 0.9% 2 UNITS/ML 500 ML IV ONE (11:31)
--- NOTE | 2016-09-06 11:41 | Operative Note ---
Date of procedure: 09/06/16 Pre-op diagnosis: Coronary artery disease Post-op diagnosis: same Procedure: Procedure: Coronary artery bypass grafting 2 with a left internal mammary graft to the anterior descending coronary artery saphenous vein graft to the obtuse marginal coronary artery. Findings: Patient is a 76-year-old man with substernal chest pain who underwent cardiac catheterization demonstrating left main coronary disease and a high- grade ostial circumflex coronary occlusion. Patient was referred for bypass surgery in the time of surgery left ventricular function was noted to be normal. Left internal mammary graft was grafted to a large anterior descending coronary artery which was free of disease at the site of anastomosis. Saphenous vein graft was placed to the obtuse marginal coronary artery which likewise was a large vessel free of disease at the site of anastomosis. Patient tolerated procedure well was returned to recovery in satisfactory condition. Procedure: Patient was brought to the operating room placed in the operating table in supine position. After satisfactory induction of general anesthesia the chest abdomen and legs were prepped and draped in sterile fashion. Greater saphenous vein was harvested from the right leg and prepared is an arterial graft. Incision in the leg was closed with 3-0 subcutaneous Monocryl and 3-0 subcuticular Monocryl. Standard sternotomy incision was made and the sternum was divided and the heart suspended in pericardial cradle. Left internal mammary artery was dissected free from its position in the anterior chest wall and prepared is an arterial graft. Patient was prepared for cardiopulmonary bypass with systemic heparinization and cannulation of the ascending aorta and right atrium. Cardiopulmonary bypass was begun and aorta was crossclamped and the heart arrested with cardioplegia solution injected into the aortic root. Heart was protected during the period of crossclamping with topical saline slush. Distal anastomoses were constructed as noted above and then the aorta was unclamped and cardiac action to reestablish. The proximal anastomosis was constructed between the inflow end of the saphenous vein graft to the ascending aorta. Patient was weaned from cardiopulmonary bypass without difficulty and the heparin effect was reversed with protamine. Decannulation was carried out in usual fashion and a defects in the ascending aorta and right atrium closed with 3-0 Prolene. The operative area was inspected for hemostasis and this was considered adequate the incision was closed with interrupted stainless steel wire and the sternum and 0 Monopril in the presternal fascia. Skin was closed with 3-0 subcuticular Monocryl. 2 chest tubes were left in the anterior mediastinum and brought out through separate stab incisions. Sterile dressings were applied the patient was returned to recovery in satisfactory condition. Anesthesia: LANEA Surgeon / Physician: Carmine Irving Estimated blood loss: other (Unable to determine because of cardiopulmonary bypass) Condition: stable Disposition: ICU Results - Labs CBC & BMP: 09/06/16 11:00 09/05/16 04:40 Discharge Plan - Discharge Medications No Action Aspirin [Ecotrin] 81 mg PO DAILY Quinapril [Accupril] 20 mg PO DAILY Insulin Aspart [NovoLOG] 20 unit SUBCUT BID Insulin NPH Human Isophane [NovoLIN N] 45 unit SUBCUT BID Rosuvastatin Calcium [Crestor] 5 mg PO BEDTIME Clopidogrel [Plavix] 75 mg PO DAILY Allopurinol 300 mg PO DAILY - Follow Up or Referral - Forms/Instructions
[2016-09-06 11:46] LABS: CKMB % 4.3 %
[2016-09-06 11:49] LABS: Troponin I Only 1.75 NG/ML (0.00-0.045)
[2016-09-06 11:50] LABS: Albumin 2.5 G/DL (3.4-5.0); Bilirubin,Total 0.9 MG/DL (0.2-1.0); Calcium 7.8 MG/DL (8.5-10.1); Osmolality,Calculated 283.7 MOS/KG (273-304); Potassium 4.2 MMOL/L (3.5-5.1); Total Protein 4.8 G/DL (6.4-8.3)
[2016-09-06 11:59] LABS: ABG Base Excess 2.7 MMOL/L (-2.5-2.5); ABG HCO3 26.8 MMOL/L (20-26); ABG Oxygen Saturation 99.2 % (95-100); ABG PCO2 33.5 MM HG (35-48); ABG PH 7.489 (7.35-7.45); ABG TCO2 22.1 MMOL/L (23-27); Glucose Heart Surgery 220 MG/DL (74-106); Hematocrit Heart Surgery 39.9 PERCENT (42-52); Potassium Heart/CVR 3.6 MMOL/L (3.5-5.1)
[2016-09-06 11:59] LABS: Band Neutrophils 4 % (0-10); Eosinophils 1 % (0-10); Hypochromasia 1+; Lymphocytes 4 % (20-55); Macrocytosis 1+; Segmented Neutrophils 89 % (50-85); Total Cells Counted 100
[2016-09-06 12:00] LABS: Platelet Estimate Adequate
--- NOTE | 2016-09-06 12:03 | XRay Report ---
Exam: XR chest 1V portable Date: 09/06/2016 10:53 AM Indication: Postop cardiac surgery Comparison: 09/04/2016 Technical: AP portable. Findings: Right IJ catheter is present. Sternotomy wires are present with mediastinal drains. Nasogastric tube is demonstrated with endotracheal tube at the mid clavicle. Low volume left effusion present. Minimal alveolar edema right base. External cardiac leads are present. No pneumothorax present Impression: 1. Postop cardiac surgery with endotracheal tube nasogastric tube mediastinal drains and IJ catheter and sternotomy wires present. 2. Low volume effusions and edema without pneumothorax PROCEDURE INTERPRETED AT [facility] DEPARTMENT OF RADIOLOGY Final Report Signed by: Dr. Brandon Chisholm
[2016-09-06] MEDS: POTASSIUM CHLORIDE RIDER 20 MEQ in PREMIX 1 EACH IV PRN ×2 (12:15→15:27)
[2016-09-06] MEDS: LACTATED RINGERS 1,000 ML IV PRN ×4 (12:38→20:43)
[2016-09-06] MEDS: KETOROLAC 30 MG/1 ML VIAL IV SCH ×3 (12:41→22:37)
[2016-09-06] MEDS: POTASSIUM CHLORIDE RIDER 10 MEQ in PREMIX 1 EACH IV PRN ×2 (12:48→16:11)
--- NOTE | 2016-09-06 13:00 | Anesthesia ---
Anesthesia Procedures - Central Venous Insert Monitors Applied: pulse oximetry, EKG, BP cuff, oxygen via MSBT: pulse oximetry, EKG, BP cuff, oxygen via Procedure: after sterile technique was performed as outlined above, , ultrasound guidance was used to identify vessel, 1.5 % lidocaine used to numb skin, 18G introducer needle was passed into vessel under direct visualizatio, 7fr double lumen catheter was passed over guidewire without difficulty, triple lumen catheter was passed over guidewire without difficulty, catheter sutured into place and the ports flushed with NS/hepflush, sterlie dressing applied including the antibiotic disc, vital signs were stable throughout procedure, no apparent complications were noted, CXR to be obtained and read Ultrasound used: identify patency vessel, visualize needle entry to vessel Vein Cannulated: right internal juglar
--- NOTE | 2016-09-06 13:01 | Anesthesia ---
Anesthesia Procedures - Arterial Line Consent obtained arterial line: written consent Time out performed arterial line: Yes Size (Gauge): 20 Technique used arterial line: guide wire technique Post-Procedure: line sutured into place Patient tolerated procedure arterial line: well, no complications Complications art line: none Site: right
--- NOTE | 2016-09-06 13:31 | Cardiology Progress Note ---
Cardiology - PN: Subj Interval history: Cardiology note Status post two-vessel CABG with QUINTERO graft to LAD and vein graft OM branch. Preop EF 35%. Tele shows AV sequential pacing O2 sat 98 on 50% FiO2 Blood pressure 106/58 on low-dose nitrite Good urine output Chest tube drainage 270 cc today. Regular rhythm Decreased breath sounds but clear 1+ edema Lab data Magnesium 2.0 potassium 3.6 hemoglobin 9.3 Ischemic cardiomyopathy EF 35% Status post two-vessel CABG Diabetes Hypertension Hyperlipidemia Plan Replace potassium Transfusion in progress Follow chest tube output Wean vent as tolerated Labs in a.m. Insulin drip and Accu-Chek sugars Exam (Progress Note) - Constitutional Vitals: Period Temp Pulse Resp BP Sys/Triana Pulse Ox Last 24 Hr 97.3 F-99.5 F 72-118 10-20 100-162/55-96 94-100 Result/EKG - Labs CBC & BMP: 09/06/16 11:00 09/06/16 11:00 Labs: Laboratory Results - last 24 hr 09/05/16 09/05/16 09/05/16 04:40 15:34 20:05 WBC RBC Hgb Hct MCV MCH MCHC RDW Plt Count MPV Neut % (Auto) Lymph % (Auto) [place] % (Auto) Eos % (Auto) Baso % (Auto) Neut # (Auto) Lymph # (Auto) [place] # (Auto) Eos # (Auto) Baso # (Auto) Total Counted Immature Gran % Nucleated RBC % Immature Gran # Segmented Neutrophils Band Neutrophils Lymphocytes Monocytes Eosinophils Nucleated RBCs # Platelet Estimate Hypochromasia Macrocytosis Morphology Comment INR PT Patient/Control Mix Circ Anticoag PTT Patient Temperature ABG pH ABG pH at Pt Temp ABG pCO2 ABG pCO2 at Pt Temp ABG pO2 ABG pO2 at Pt Temp ABG HCO3 ABG Total CO2 ABG O2 Saturation ABG Base Excess ABG Sodium VBG pH VBG pCO2 VBG pO2 VBG HCO3 VBG Total CO2 VBG O2 Saturation VBG Base Excess Hemoglobin Hematocrit Potassium Glucose Ionized Calcium FiO2 Sodium Chloride Carbon Dioxide Anion Gap BUN Creatinine GFR Calculation BUN/Creatinine Ratio POC Glucose 318 H 300 H Calculated Osmolality Calcium Venous Ioniz Calcium Magnesium Total Bilirubin AST ALT Alkaline Phosphatase Total Creatine Kinase CK-MB (CK-2) CK and CKMB Interp Troponin I Total Protein Albumin Globulin Albumin/Globulin Ratio Urine Color Urine Appearance Urine pH Ur Specific [place] Urine Protein Urine Glucose (UA) Urine Ketones Urine Blood Urine Nitrate Urine Bilirubin Urine Urobilinogen Urine Leukocytes Urine RBC Urine WBC Ur Culture Indicated? Blood Type A POSITIVE Antibody Screen Negative Crossmatch See Detail 09/06/16 09/06/16 09/06/16 03:19 04:48 07:00 WBC RBC Hgb Hct MCV MCH MCHC RDW Plt Count MPV Neut % (Auto) Lymph % (Auto) [place] % (Auto) Eos % (Auto) Baso % (Auto) Neut # (Auto) Lymph # (Auto) [place] # (Auto) Eos # (Auto) Baso # (Auto) Total Counted Immature Gran % Nucleated RBC % Immature Gran # Segmented Neutrophils Band Neutrophils Lymphocytes Monocytes Eosinophils Nucleated RBCs # Platelet Estimate Hypochromasia Macrocytosis Morphology Comment INR 1.0 PT Patient/Control Mix 10.3 Circ Anticoag PTT 25.0 Patient Temperature ABG pH ABG pH at Pt Temp ABG pCO2 ABG pCO2 at Pt Temp ABG pO2 ABG pO2 at Pt Temp ABG HCO3 ABG Total CO2 ABG O2 Saturation ABG Base Excess ABG Sodium VBG pH VBG pCO2 VBG pO2 VBG HCO3 VBG Total CO2 VBG O2 Saturation VBG Base Excess Hemoglobin Hematocrit Potassium Glucose Ionized Calcium FiO2 Sodium Chloride Carbon Dioxide Anion Gap BUN Creatinine GFR Calculation BUN/Creatinine Ratio POC Glucose 203 H Calculated Osmolality Calcium Venous Ioniz Calcium Magnesium Total Bilirubin AST ALT Alkaline Phosphatase Total Creatine Kinase CK-MB (CK-2) CK and CKMB Interp Troponin I Total Protein Albumin Globulin Albumin/Globulin Ratio Urine Color Yellow Urine Appearance Clear Urine pH 6.0 Ur Specific [place] 1.012 Urine Protein Negative Urine Glucose (UA) Negative Urine Ketones Negative Urine Blood Negative Urine Nitrate Negative Urine Bilirubin Negative Urine Urobilinogen < 2.0 H Urine Leukocytes Negative Urine RBC 1 Urine WBC 1 Ur Culture Indicated? Not indicated Blood Type Antibody Screen Crossmatch 09/06/16 09/06/16 09/06/16 07:42 07:42 08:58 WBC RBC Hgb Hct MCV MCH MCHC RDW Plt Count 125 L D MPV Neut % (Auto) Lymph % (Auto) [place] % (Auto) Eos % (Auto) Baso % (Auto) Neut # (Auto) Lymph # (Auto) [place] # (Auto) Eos # (Auto) Baso # (Auto) Total Counted Immature Gran % Nucleated RBC % Immature Gran # Segmented Neutrophils Band Neutrophils Lymphocytes Monocytes Eosinophils Nucleated RBCs # Platelet Estimate Hypochromasia Macrocytosis Morphology Comment INR PT Patient/Control Mix Circ Anticoag PTT Patient Temperature 37 37 ABG pH 7.456 H ABG pH at Pt Temp 7.456 7.393 ABG pCO2 37.0 ABG pCO2 at Pt Temp 37.0 43.1 ABG pO2 377.4 H ABG pO2 at Pt Temp 377.4 46.5 ABG HCO3 25.5 ABG Total CO2 26.6 ABG O2 Saturation 99.2 ABG Base Excess 1.7 ABG Sodium 133 L 130 L VBG pH 7.393 VBG pCO2 43.1 VBG pO2 46.5 H VBG HCO3 25.3 VBG Total CO2 24.3 VBG O2 Saturation 82.7 VBG Base Excess 1.2 Hemoglobin 10.2 L 8.9 L Hematocrit 30.0 L 27.6 L Potassium 3.7 4.7 Glucose 172 H 324 H Ionized Calcium 1.05 L FiO2 21.00 Sodium Chloride Carbon Dioxide Anion Gap BUN Creatinine GFR Calculation BUN/Creatinine Ratio POC Glucose Calculated Osmolality Calcium Venous Ioniz Calcium 0.98 L Magnesium Total Bilirubin AST ALT Alkaline Phosphatase Total Creatine Kinase CK-MB (CK-2) CK and CKMB Interp Troponin I Total Protein Albumin Globulin Albumin/Globulin Ratio Urine Color Urine Appearance Urine pH Ur Specific [place] Urine Protein Urine Glucose (UA) Urine Ketones Urine Blood Urine Nitrate Urine Bilirubin Urine Urobilinogen Urine Leukocytes Urine RBC Urine WBC Ur Culture Indicated? Blood Type Antibody Screen Crossmatch 09/06/16 09/06/16 09/06/16 09:37 10:10 10:10 WBC RBC Hgb Hct MCV MCH MCHC RDW Plt Count 39 L* D MPV Neut % (Auto) Lymph % (Auto) [place] % (Auto) Eos % (Auto) Baso % (Auto) Neut # (Auto) Lymph # (Auto) [place] # (Auto) Eos # (Auto) Baso # (Auto) Total Counted Immature Gran % Nucleated RBC % Immature Gran # Segmented Neutrophils Band Neutrophils Lymphocytes Monocytes Eosinophils Nucleated RBCs # Platelet Estimate Hypochromasia Macrocytosis Morphology Comment INR PT Patient/Control Mix Circ Anticoag PTT Patient Temperature 37 37 ABG pH 7.425 ABG pH at Pt Temp 7.427 7.425 ABG pCO2 39.1 ABG pCO2 at Pt Temp 40.2 39.1 ABG pO2 187.0 H ABG pO2 at Pt Temp 35.2 187.0 ABG HCO3 25.6 ABG Total CO2 23.6 ABG O2 Saturation 99.8 ABG Base Excess 1.3 ABG Sodium 132 L 133 L VBG pH 7.427 VBG pCO2 40.2 L VBG pO2 35.2 VBG HCO3 25.8 VBG Total CO2 24.7 VBG O2 Saturation 69.0 VBG Base Excess 2.1 Hemoglobin 8.4 L 8.9 L Hematocrit 26.3 L 27.6 L Potassium 3.9 4.1 Glucose 272 H 232 H Ionized Calcium 1.14 L FiO2 80.00 Sodium Chloride Carbon Dioxide Anion Gap BUN Creatinine GFR Calculation BUN/Creatinine Ratio POC Glucose Calculated Osmolality Calcium Venous Ioniz Calcium 0.94 L Magnesium Total Bilirubin AST ALT Alkaline Phosphatase Total Creatine Kinase CK-MB (CK-2) CK and CKMB Interp Troponin I Total Protein Albumin Globulin Albumin/Globulin Ratio Urine Color Urine Appearance Urine pH Ur Specific [place] Urine Protein Urine Glucose (UA) Urine Ketones Urine Blood Urine Nitrate Urine Bilirubin Urine Urobilinogen Urine Leukocytes Urine RBC Urine WBC Ur Culture Indicated? Blood Type Antibody Screen Crossmatch 09/06/16 09/06/16 09/06/16 11:00 11:00 11:00 WBC 8.8 RBC 2.67 L Hgb 9.3 L Hct 26.8 L MCV 100.4 MCH 35 H MCHC 34.7 RDW 14.5 Plt Count 114 L D MPV 10.1 Neut % (Auto) 87.8 H Lymph % (Auto) 4.5 L [place] % (Auto) 3.8 Eos % (Auto) 1.6 Baso % (Auto) 0.1 Neut # (Auto) 7.7 H Lymph # (Auto) 0.4 L [place] # (Auto) 0.3 Eos # (Auto) 0.1 Baso # (Auto) 0.0 Total Counted 100 Immature Gran % 2.2 Nucleated RBC % 0.0 Immature Gran # 0.19 Segmented Neutrophils 89 H Band Neutrophils 4 Lymphocytes 4 L Monocytes 2 Eosinophils 1 Nucleated RBCs # 0.00 Platelet Estimate Adequate Hypochromasia 1+ Macrocytosis 1+ Morphology Comment INR 1.1 PT Patient/Control Mix 11.5 Circ Anticoag PTT 25.5 Patient Temperature ABG pH ABG pH at Pt Temp ABG pCO2 ABG pCO2 at Pt Temp ABG pO2 ABG pO2 at Pt Temp ABG HCO3 ABG Total CO2 ABG O2 Saturation ABG Base Excess ABG Sodium VBG pH VBG pCO2 VBG pO2 VBG HCO3 VBG Total CO2 VBG O2 Saturation VBG Base Excess Hemoglobin Hematocrit Potassium 4.2 Glucose 217 H Ionized Calcium FiO2 Sodium 138 Chloride 102 Carbon Dioxide 27 Anion Gap 13.2 BUN 18 Creatinine 1.30 GFR Calculation 73 BUN/Creatinine Ratio 13.00 POC Glucose Calculated Osmolality 283.7 Calcium 7.8 L Venous Ioniz Calcium Magnesium 2.0 Total Bilirubin 0.90 AST 27 ALT 25 Alkaline Phosphatase 45 Total Creatine Kinase CK-MB (CK-2) CK and CKMB Interp Troponin I Total Protein 4.8 L Albumin 2.5 L Globulin 2.3 Albumin/Globulin Ratio 1.0 L Urine Color Urine Appearance Urine pH Ur Specific [place] Urine Protein Urine Glucose (UA) Urine Ketones Urine Blood Urine Nitrate Urine Bilirubin Urine Urobilinogen Urine Leukocytes Urine RBC Urine WBC Ur Culture Indicated? Blood Type Antibody Screen Crossmatch 09/06/16 09/06/16 09/06/16 11:00 11:00 11:45 WBC RBC Hgb Hct MCV MCH MCHC RDW Plt Count MPV Neut % (Auto) Lymph % (Auto) [place] % (Auto) Eos % (Auto) Baso % (Auto) Neut # (Auto) Lymph # (Auto) [place] # (Auto) Eos # (Auto) Baso # (Auto) Total Counted Immature Gran % Nucleated RBC % Immature Gran # Segmented Neutrophils Band Neutrophils Lymphocytes Monocytes Eosinophils Nucleated RBCs # Platelet Estimate Hypochromasia Macrocytosis Morphology Comment INR PT Patient/Control Mix Circ Anticoag PTT Patient Temperature ABG pH 7.472 H 7.489 H ABG pH at Pt Temp ABG pCO2 35.3 33.5 L ABG pCO2 at Pt Temp ABG pO2 154.9 H 117.0 H ABG pO2 at Pt Temp ABG HCO3 25.2 26.8 H ABG Total CO2 26.3 22.1 L ABG O2 Saturation 98.5 99.2 ABG Base Excess 1.7 2.7 H ABG Sodium VBG pH VBG pCO2 VBG pO2 VBG HCO3 VBG Total CO2 VBG O2 Saturation VBG Base Excess Hemoglobin 10.3 L 13.0 L D Hematocrit 30.0 L 39.9 L Potassium 4.0 3.6 Glucose 216 H 220 H Ionized Calcium FiO2 Sodium Chloride Carbon Dioxide Anion Gap BUN Creatinine GFR Calculation BUN/Creatinine Ratio POC Glucose Calculated Osmolality Calcium Venous Ioniz Calcium Magnesium Total Bilirubin AST ALT Alkaline Phosphatase Total Creatine Kinase 207 CK-MB (CK-2) 9.0 H CK and CKMB Interp 4.3 Troponin I 1.750 H Total Protein Albumin Globulin Albumin/Globulin Ratio Urine Color Urine Appearance Urine pH Ur Specific [place] Urine Protein Urine Glucose (UA) Urine Ketones Urine Blood Urine Nitrate Urine Bilirubin Urine Urobilinogen Urine Leukocytes Urine RBC Urine WBC Ur Culture Indicated? Blood Type Antibody Screen Crossmatch Quality Measures - VTE Contraindication to Pharmacological VTE Prophylaxis: High Risk of Bleeding
[2016-09-06 14:33] LABS: ABG Base Excess 2.3 MMOL/L (-2.5-2.5); ABG HCO3 24.6 MMOL/L (20-26); ABG Oxygen Saturation 97.3 % (95-100); ABG PCO2 30.8 MM HG (35-48); ABG TCO2 25.5 MMOL/L (23-27); Glucose Heart Surgery 142 MG/DL (74-106); Hemoglobin Heart Surgery 11.8 G/DL (14.0-18.0); Potassium Heart/CVR 3.8 MMOL/L (3.5-5.1)
--- NOTE | 2016-09-06 15:17 | Hospitalist Progress Note ---
Assessment and Plan (1) CAD (coronary artery disease) Status: Chronic Assessment and plan: s/p CABG X2 Current Visit: Yes (2) T2DM (type 2 diabetes mellitus) Status: Chronic Assessment and plan: insulin drip per protocol Current Visit: Yes Hospitalist: Subjective Interval history: had cabg today Exam - Constitutional Vitals: Period Temp Pulse Resp BP Sys/Triana Pulse Ox Last 24 Hr 97.3 F-99.5 F 72-118 10-20 92-162/51-96 94-100 Exam: Heart Rate-[RRR] Lungs-[rhonchi] GI-[+bs soft, NT] Ext-[no edema] Results - Labs CBC & BMP: 09/06/16 11:00 09/06/16 11:00 Lab Results: I have reviewed the past 24 hour labs Quality Measures - VTE Contraindication to Pharmacological VTE Prophylaxis: High Risk of Bleeding
[2016-09-06 16:13] LABS: ABG Base Excess 1.4 MMOL/L (-2.5-2.5); ABG HCO3 25.6 MMOL/L (20-26); ABG Oxygen Saturation 98.8 % (95-100); ABG PH 7.451 (7.35-7.45); ABG TCO2 22.7 MMOL/L (23-27)
[2016-09-06] MEDS: INSULIN REGULAR 100 UNIT/ML IV PRN ×2 (17:15→19:21)
[2016-09-06] MEDS: ALBUMIN 5% 12.5 GM in PREMIX 1 EACH IV PRN ×2 (17:26→18:18)
[2016-09-06] MEDS: MIDAZOLAM 10 MG/2 ML VIAL IV PRN ×3 (18:17→23:00)
[2016-09-06] MEDS: CEFUROXIME INJ 1,500 MG in SODIUM CHLORIDE 0.9% 100 ML IV SCH (19:01)
[2016-09-06 19:05] LABS: ABG Base Excess 0.6 MMOL/L (-2.5-2.5); ABG HCO3 24.9 MMOL/L (20-26); ABG PCO2 39.4 MM HG (35-48); ABG PH 7.412 (7.35-7.45); ABG PO2 77.8 MM HG (80-95); Glucose Heart Surgery 148 MG/DL (74-106); Hemoglobin Heart Surgery 9.4 G/DL (14.0-18.0); Potassium Heart/CVR 4.5 MMOL/L (3.5-5.1)
[2016-09-06 20:03] LABS: CKMB % 3.8 %
[2016-09-06 20:04] LABS: Troponin I Only 2.79 NG/ML (0.00-0.045)
[2016-09-06] MEDS ORDERED: FUROSEMIDE 40 MG/4 ML VIAL IV ONE (20:14)
[2016-09-06] MEDS ORDERED: CHLORHEXIDINE 0.12% ORAL RINSE 60 ML BOTTLE SWISH/SPIT SCH (21:00)
[2016-09-07 00:13] LABS: ABG Base Excess 0.6 MMOL/L (-2.5-2.5); ABG HCO3 25.4 MMOL/L (20-26); ABG Oxygen Saturation 96.3 % (95-100); ABG PCO2 41.4 MM HG (35-48); ABG PH 7.405 (7.35-7.45); ABG PO2 87.9 MM HG (80-95); ABG TCO2 26.6 MMOL/L (23-27); Glucose Heart Surgery 112 MG/DL (74-106); Hemoglobin Heart Surgery 10.9 G/DL (14.0-18.0)
[2016-09-07 01:02] LABS: ABG Base Excess -0.3 MMOL/L (-2.5-2.5); ABG Oxygen Saturation 96.4 % (95-100); ABG PCO2 43.5 MM HG (35-48); ABG PH 7.377 (7.35-7.45); ABG PO2 90.2 MM HG (80-95); ABG TCO2 26.3 MMOL/L (23-27); Glucose Heart Surgery 116 MG/DL (74-106); Hemoglobin Heart Surgery 11.4 G/DL (14.0-18.0)
[2016-09-07] MEDS: POTASSIUM CHLORIDE RIDER 20 MEQ in PREMIX 1 EACH IV PRN (01:17)
[2016-09-07 01:53] LABS: ABG Base Excess -1.7 MMOL/L (-2.5-2.5); ABG Oxygen Saturation 95.7 % (95-100); ABG PCO2 36.1 MM HG (35-48); ABG PH 7.405 (7.35-7.45); ABG PO2 75.9 MM HG (80-95); ABG TCO2 20.6 MMOL/L (23-27); Glucose Heart Surgery 133 MG/DL (74-106); Potassium Heart/CVR 4.5 MMOL/L (3.5-5.1)
[2016-09-07 04:23] LABS: ABG Base Excess -0.5 MMOL/L (-2.5-2.5); ABG HCO3 23.9 MMOL/L (20-26); ABG PCO2 38.4 MM HG (35-48); ABG PH 7.412 (7.35-7.45); ABG PO2 82.4 MM HG (80-95); ABG TCO2 25.1 MMOL/L (23-27); Glucose Heart Surgery 134 MG/DL (74-106); Hemoglobin Heart Surgery 10.8 G/DL (14.0-18.0); Potassium Heart/CVR 4.4 MMOL/L (3.5-5.1)
[2016-09-07] MEDS: KETOROLAC 30 MG/1 ML VIAL IV SCH ×4 (04:33→17:37)
[2016-09-07 04:35] LABS: Basophils % 0.1 % (0.0-0.8); Hematocrit 28.7 VOL% (42.0-52.0); Hemoglobin 9.7 GM/DL (14.0-18.0); Immature Granulocytes % 0.9 %; Immature Granulocytes Absolute 0.14 #; Lymphocytes # 0.4 10*3/uL (1.4-4.0); Lymphocytes % 2.8 % (21.2-54.2); Mean Corpuscular HGB Conc 33.8 GM/DL (32-36); Mean Corpuscular Hemoglobin 33 PG (27-34); Mean Corpuscular Volume 98.3 FL (87-102); Mean Platelet Volume 10.8 FL (9.6-12.0); Monocytes # 0.3 10*3/uL (0.11-0.8); Monocytes % 1.8 % (1.7-12.7); Neutrophils # 13.9 10*3/uL (1.4-7.4); Neutrophils % 94.4 % (38.7-73.9); Platelet Count 121 T/CUMM (130-400); Red Blood Count 2.92 MC/CUMM (3.8-5.5); Red Cell Distribution Width 16.4 % (9.3-17.3); White Blood Count 14.8 T/CUMM (4-12)
[2016-09-07] MEDS: POTASSIUM CHLORIDE RIDER 10 MEQ in PREMIX 1 EACH IV PRN (04:57)
[2016-09-07 05:02] LABS: CKMB % 4.3 %
[2016-09-07 05:05] LABS: Troponin I Only 2.4 NG/ML (0.00-0.045)
[2016-09-07 05:14] LABS: Band Neutrophils 3 % (0-10); Hypochromasia 1+; Lymphocytes 1 % (20-55); Ovalocytes Slight; Platelet Estimate Normal; Segmented Neutrophils 95 % (50-85); Total Cells Counted 100
[2016-09-07 05:15] LABS: Macrocytosis Slight
[2016-09-07 06:00] LABS: Albumin 3.1 G/DL (3.4-5.0); Bilirubin,Direct 0.2 MG/DL (0.0-0.20); Bilirubin,Total 0.7 MG/DL (0.2-1.0); Calcium 7.7 MG/DL (8.5-10.1); Magnesium 1.8 MG/DL (1.8-2.4); Osmolality,Calculated 285.4 MOS/KG (273-304); Potassium 4.4 MMOL/L (3.5-5.1); Total Protein 5.3 G/DL (6.4-8.3)
[2016-09-07] MEDS: CEFUROXIME INJ 1,500 MG in SODIUM CHLORIDE 0.9% 100 ML IV SCH (06:01)
[2016-09-07] MEDS ORDERED: MORPHINE 2 MG/1 ML SYRINGE IV PRN (06:08)
[2016-09-07] MEDS ORDERED: POTASSIUM CHLORIDE 20 MEQ TABLET PO PRN (06:08)
[2016-09-07] MEDS ORDERED: MAGNESIUM HYDROXIDE SUSP 30 ML UDCUP PO PRN (06:08)
[2016-09-07] MEDS ORDERED: GLUCAGON 1 MG VIAL IM PRN ×2 (06:08)
[2016-09-07] MEDS ORDERED: ACETAMINOPHEN 325 MG TABLET PO PRN (06:08)
[2016-09-07] MEDS ORDERED: DEXTROSE 50% 25 GM/50 ML VIAL IV PRN ×2 (06:08)
[2016-09-07] MEDS ORDERED: MAGNESIUM SULF RIDER 4 GM in PREMIX 1 EACH IV PRN (06:08)
[2016-09-07] MEDS ORDERED: MAGNESIUM SULF RIDER 2 GM in PREMIX 1 EACH IV PRN (06:08)
[2016-09-07] MEDS ORDERED: ZALEPLON 5 MG CAPSULE PO PRN (06:08)
[2016-09-07] MEDS ORDERED: ONDANSETRON 4 MG/2 ML VIAL IV PRN (06:08)
[2016-09-07] MEDS ORDERED: ALUMINUM/MAGNES/SIMETH MAX STR 30 ML UDCUP PO PRN (06:08)
[2016-09-07] MEDS ORDERED: LORATADINE 10 MG TABLET PO ONE (06:18)
--- NOTE | 2016-09-07 06:21 | Cardiology Progress Note ---
Cardiology - PN: Subj Interval history: Cardiology note Postop day #1 QUINTERO graft to LAD and vein graft to the OM branch. Preop EF 35%. Awake alert and responsive. Telemetry shows ventricular pacing. O2 sat 98 on 3 L cannula Blood pressure 130/66 Soft rub regular rhythm Decreased breath sounds but clear Incision looks good Lab data today White count 14.8 hemoglobin 9.7 hematocrit 28.7 Sodium 140 potassium 4.4 chloride 105 CO2 25 BUN 25 creatinine 1.40 Magnesium 1.8 peak CPK 264 troponin 2.7 Impression Postop day #1 two-vessel CABG Ischemic cardia myopathy EF 35% Diabetes Hypertension Hypercholesterolemia Plan Pull chest tube today Transfer to telemetry Accu-Chek sugars Exam (Progress Note) - Constitutional Vitals: Period Temp Pulse Resp BP Sys/Triana Pulse Ox Last 24 Hr 95.6 F-99.0 F 80-80 8-14 83-162/48-81 94-99 Result/EKG - Labs CBC & BMP: 09/07/16 03:30 09/07/16 03:30 Labs: Laboratory Results - last 24 hr 09/05/16 09/06/16 09/06/16 04:40 07:00 07:42 WBC RBC Hgb Hct MCV MCH MCHC RDW Plt Count 125 L D MPV Neut % (Auto) Lymph % (Auto) [place] % (Auto) Eos % (Auto) Baso % (Auto) Neut # (Auto) Lymph # (Auto) [place] # (Auto) Eos # (Auto) Baso # (Auto) Total Counted Immature Gran % Nucleated RBC % Immature Gran # Segmented Neutrophils Band Neutrophils Lymphocytes Monocytes Eosinophils Nucleated RBCs # Platelet Estimate Hypochromasia Macrocytosis Ovalocytes Morphology Comment INR PT Patient/Control Mix Circ Anticoag PTT Patient Temperature ABG pH ABG pH at Pt Temp ABG pCO2 ABG pCO2 at Pt Temp ABG pO2 ABG pO2 at Pt Temp ABG HCO3 ABG Total CO2 ABG O2 Saturation ABG Base Excess ABG Sodium VBG pH VBG pCO2 VBG pO2 VBG HCO3 VBG Total CO2 VBG O2 Saturation VBG Base Excess Hemoglobin Hematocrit Potassium Glucose Ionized Calcium FiO2 Sodium Chloride Carbon Dioxide Anion Gap BUN Creatinine GFR Calculation BUN/Creatinine Ratio Calculated Osmolality Calcium Venous Ioniz Calcium Magnesium Total Bilirubin Direct Bilirubin AST ALT Alkaline Phosphatase Total Creatine Kinase CK-MB (CK-2) CK and CKMB Interp Troponin I Total Protein Albumin Globulin Albumin/Globulin Ratio Urine Color Yellow Urine Appearance Clear Urine pH 6.0 Ur Specific Deposit 1.012 Urine Protein Negative Urine Glucose (UA) Negative Urine Ketones Negative Urine Blood Negative Urine Nitrate Negative Urine Bilirubin Negative Urine Urobilinogen < 2.0 H Urine Leukocytes Negative Urine RBC 1 Urine WBC 1 Ur Culture Indicated? Not indicated Blood Type A POSITIVE Antibody Screen Negative Crossmatch See Detail 09/06/16 09/06/16 09/06/16 07:42 08:58 09:37 WBC RBC Hgb Hct MCV MCH MCHC RDW Plt Count MPV Neut % (Auto) Lymph % (Auto) [place] % (Auto) Eos % (Auto) Baso % (Auto) Neut # (Auto) Lymph # (Auto) [place] # (Auto) Eos # (Auto) Baso # (Auto) Total Counted Immature Gran % Nucleated RBC % Immature Gran # Segmented Neutrophils Band Neutrophils Lymphocytes Monocytes Eosinophils Nucleated RBCs # Platelet Estimate Hypochromasia Macrocytosis Ovalocytes Morphology Comment INR PT Patient/Control Mix Circ Anticoag PTT Patient Temperature 37 37 37 ABG pH 7.456 H ABG pH at Pt Temp 7.456 7.393 7.427 ABG pCO2 37.0 ABG pCO2 at Pt Temp 37.0 43.1 40.2 ABG pO2 377.4 H ABG pO2 at Pt Temp 377.4 46.5 35.2 ABG HCO3 25.5 ABG Total CO2 26.6 ABG O2 Saturation 99.2 ABG Base Excess 1.7 ABG Sodium 133 L 130 L 132 L VBG pH 7.393 7.427 VBG pCO2 43.1 40.2 L VBG pO2 46.5 H 35.2 VBG HCO3 25.3 25.8 VBG Total CO2 24.3 24.7 VBG O2 Saturation 82.7 69.0 VBG Base Excess 1.2 2.1 Hemoglobin 10.2 L 8.9 L 8.4 L Hematocrit 30.0 L 27.6 L 26.3 L Potassium 3.7 4.7 3.9 Glucose 172 H 324 H 272 H Ionized Calcium 1.05 L FiO2 21.00 80.00 Sodium Chloride Carbon Dioxide Anion Gap BUN Creatinine GFR Calculation BUN/Creatinine Ratio Calculated Osmolality Calcium Venous Ioniz Calcium 0.98 L 0.94 L Magnesium Total Bilirubin Direct Bilirubin AST ALT Alkaline Phosphatase Total Creatine Kinase CK-MB (CK-2) CK and CKMB Interp Troponin I Total Protein Albumin Globulin Albumin/Globulin Ratio Urine Color Urine Appearance Urine pH Ur Specific Deposit Urine Protein Urine Glucose (UA) Urine Ketones Urine Blood Urine Nitrate Urine Bilirubin Urine Urobilinogen Urine Leukocytes Urine RBC Urine WBC Ur Culture Indicated? Blood Type Antibody Screen Crossmatch 09/06/16 09/06/16 09/06/16 10:10 10:10 11:00 WBC 8.8 RBC 2.67 L Hgb 9.3 L Hct 26.8 L MCV 100.4 MCH 35 H MCHC 34.7 RDW 14.5 Plt Count 39 L* D 114 L D MPV 10.1 Neut % (Auto) 87.8 H Lymph % (Auto) 4.5 L [place] % (Auto) 3.8 Eos % (Auto) 1.6 Baso % (Auto) 0.1 Neut # (Auto) 7.7 H Lymph # (Auto) 0.4 L [place] # (Auto) 0.3 Eos # (Auto) 0.1 Baso # (Auto) 0.0 Total Counted 100 Immature Gran % 2.2 Nucleated RBC % 0.0 Immature Gran # 0.19 Segmented Neutrophils 89 H Band Neutrophils 4 Lymphocytes 4 L Monocytes 2 Eosinophils 1 Nucleated RBCs # 0.00 Platelet Estimate Adequate Hypochromasia 1+ Macrocytosis 1+ Ovalocytes Morphology Comment INR PT Patient/Control Mix Circ Anticoag PTT Patient Temperature 37 ABG pH 7.425 ABG pH at Pt Temp 7.425 ABG pCO2 39.1 ABG pCO2 at Pt Temp 39.1 ABG pO2 187.0 H ABG pO2 at Pt Temp 187.0 ABG HCO3 25.6 ABG Total CO2 23.6 ABG O2 Saturation 99.8 ABG Base Excess 1.3 ABG Sodium 133 L VBG pH VBG pCO2 VBG pO2 VBG HCO3 VBG Total CO2 VBG O2 Saturation VBG Base Excess Hemoglobin 8.9 L Hematocrit 27.6 L Potassium 4.1 Glucose 232 H Ionized Calcium 1.14 L FiO2 Sodium Chloride Carbon Dioxide Anion Gap BUN Creatinine GFR Calculation BUN/Creatinine Ratio Calculated Osmolality Calcium Venous Ioniz Calcium Magnesium Total Bilirubin Direct Bilirubin AST ALT Alkaline Phosphatase Total Creatine Kinase CK-MB (CK-2) CK and CKMB Interp Troponin I Total Protein Albumin Globulin Albumin/Globulin Ratio Urine Color Urine Appearance Urine pH Ur Specific Deposit Urine Protein Urine Glucose (UA) Urine Ketones Urine Blood Urine Nitrate Urine Bilirubin Urine Urobilinogen Urine Leukocytes Urine RBC Urine WBC Ur Culture Indicated? Blood Type Antibody Screen Crossmatch 09/06/16 09/06/16 09/06/16 11:00 11:00 11:00 WBC RBC Hgb Hct MCV MCH MCHC RDW Plt Count MPV Neut % (Auto) Lymph % (Auto) [place] % (Auto) Eos % (Auto) Baso % (Auto) Neut # (Auto) Lymph # (Auto) [place] # (Auto) Eos # (Auto) Baso # (Auto) Total Counted Immature Gran % Nucleated RBC % Immature Gran # Segmented Neutrophils Band Neutrophils Lymphocytes Monocytes Eosinophils Nucleated RBCs # Platelet Estimate Hypochromasia Macrocytosis Ovalocytes Morphology Comment INR 1.1 PT Patient/Control Mix 11.5 Circ Anticoag PTT 25.5 Patient Temperature ABG pH 7.472 H ABG pH at Pt Temp ABG pCO2 35.3 ABG pCO2 at Pt Temp ABG pO2 154.9 H ABG pO2 at Pt Temp ABG HCO3 25.2 ABG Total CO2 26.3 ABG O2 Saturation 98.5 ABG Base Excess 1.7 ABG Sodium VBG pH VBG pCO2 VBG pO2 VBG HCO3 VBG Total CO2 VBG O2 Saturation VBG Base Excess Hemoglobin 10.3 L Hematocrit 30.0 L Potassium 4.2 4.0 Glucose 217 H 216 H Ionized Calcium FiO2 Sodium 138 Chloride 102 Carbon Dioxide 27 Anion Gap 13.2 BUN 18 Creatinine 1.30 GFR Calculation 73 BUN/Creatinine Ratio 13.00 Calculated Osmolality 283.7 Calcium 7.8 L Venous Ioniz Calcium Magnesium 2.0 Total Bilirubin 0.90 Direct Bilirubin AST 27 ALT 25 Alkaline Phosphatase 45 Total Creatine Kinase CK-MB (CK-2) CK and CKMB Interp Troponin I Total Protein 4.8 L Albumin 2.5 L Globulin 2.3 Albumin/Globulin Ratio 1.0 L Urine Color Urine Appearance Urine pH Ur Specific Deposit Urine Protein Urine Glucose (UA) Urine Ketones Urine Blood Urine Nitrate Urine Bilirubin Urine Urobilinogen Urine Leukocytes Urine RBC Urine WBC Ur Culture Indicated? Blood Type Antibody Screen Crossmatch 09/06/16 09/06/16 09/06/16 11:00 11:45 14:25 WBC RBC Hgb Hct MCV MCH MCHC RDW Plt Count MPV Neut % (Auto) Lymph % (Auto) [place] % (Auto) Eos % (Auto) Baso % (Auto) Neut # (Auto) Lymph # (Auto) [place] # (Auto) Eos # (Auto) Baso # (Auto) Total Counted Immature Gran % Nucleated RBC % Immature Gran # Segmented Neutrophils Band Neutrophils Lymphocytes Monocytes Eosinophils Nucleated RBCs # Platelet Estimate Hypochromasia Macrocytosis Ovalocytes Morphology Comment INR PT Patient/Control Mix Circ Anticoag PTT Patient Temperature ABG pH 7.489 H 7.520 H ABG pH at Pt Temp ABG pCO2 33.5 L 30.8 L ABG pCO2 at Pt Temp ABG pO2 117.0 H 90.0 ABG pO2 at Pt Temp ABG HCO3 26.8 H 24.6 ABG Total CO2 22.1 L 25.5 ABG O2 Saturation 99.2 97.3 ABG Base Excess 2.7 H 2.3 ABG Sodium VBG pH VBG pCO2 VBG pO2 VBG HCO3 VBG Total CO2 VBG O2 Saturation VBG Base Excess Hemoglobin 13.0 L D 11.8 L Hematocrit 39.9 L 35.0 L Potassium 3.6 3.8 Glucose 220 H 142 H Ionized Calcium FiO2 Sodium Chloride Carbon Dioxide Anion Gap BUN Creatinine GFR Calculation BUN/Creatinine Ratio Calculated Osmolality Calcium Venous Ioniz Calcium Magnesium Total Bilirubin Direct Bilirubin AST ALT Alkaline Phosphatase Total Creatine Kinase 207 CK-MB (CK-2) 9.0 H CK and CKMB Interp 4.3 Troponin I 1.750 H Total Protein Albumin Globulin Albumin/Globulin Ratio Urine Color Urine Appearance Urine pH Ur Specific Deposit Urine Protein Urine Glucose (UA) Urine Ketones Urine Blood Urine Nitrate Urine Bilirubin Urine Urobilinogen Urine Leukocytes Urine RBC Urine WBC Ur Culture Indicated? Blood Type Antibody Screen Crossmatch 09/06/16 09/06/16 09/06/16 16:10 19:00 19:10 WBC RBC Hgb Hct MCV MCH MCHC RDW Plt Count MPV Neut % (Auto) Lymph % (Auto) [place] % (Auto) Eos % (Auto) Baso % (Auto) Neut # (Auto) Lymph # (Auto) [place] # (Auto) Eos # (Auto) Baso # (Auto) Total Counted Immature Gran % Nucleated RBC % Immature Gran # Segmented Neutrophils Band Neutrophils Lymphocytes Monocytes Eosinophils Nucleated RBCs # Platelet Estimate Hypochromasia Macrocytosis Ovalocytes Morphology Comment INR PT Patient/Control Mix Circ Anticoag PTT Patient Temperature ABG pH 7.451 H 7.412 ABG pH at Pt Temp ABG pCO2 36.0 39.4 ABG pCO2 at Pt Temp ABG pO2 115.0 H 77.8 L ABG pO2 at Pt Temp ABG HCO3 25.6 24.9 ABG Total CO2 22.7 L 23.0 ABG O2 Saturation 98.8 96.0 ABG Base Excess 1.4 0.6 ABG Sodium VBG pH VBG pCO2 VBG pO2 VBG HCO3 VBG Total CO2 VBG O2 Saturation VBG Base Excess Hemoglobin 9.4 L D Hematocrit 29.0 L Potassium 4.5 Glucose 148 H Ionized Calcium FiO2 Sodium Chloride Carbon Dioxide Anion Gap BUN Creatinine GFR Calculation BUN/Creatinine Ratio Calculated Osmolality Calcium Venous Ioniz Calcium Magnesium Total Bilirubin Direct Bilirubin AST ALT Alkaline Phosphatase Total Creatine Kinase 252 D CK-MB (CK-2) 9.5 H CK and CKMB Interp 3.8 Troponin I 2.790 H D Total Protein Albumin Globulin Albumin/Globulin Ratio Urine Color Urine Appearance Urine pH Ur Specific Deposit Urine Protein Urine Glucose (UA) Urine Ketones Urine Blood Urine Nitrate Urine Bilirubin Urine Urobilinogen Urine Leukocytes Urine RBC Urine WBC Ur Culture Indicated? Blood Type Antibody Screen Crossmatch 09/07/16 09/07/16 09/07/16 00:07 00:36 01:38 WBC RBC Hgb Hct MCV MCH MCHC RDW Plt Count MPV Neut % (Auto) Lymph % (Auto) [place] % (Auto) Eos % (Auto) Baso % (Auto) Neut # (Auto) Lymph # (Auto) [place] # (Auto) Eos # (Auto) Baso # (Auto) Total Counted Immature Gran % Nucleated RBC % Immature Gran # Segmented Neutrophils Band Neutrophils Lymphocytes Monocytes Eosinophils Nucleated RBCs # Platelet Estimate Hypochromasia Macrocytosis Ovalocytes Morphology Comment INR PT Patient/Control Mix Circ Anticoag PTT Patient Temperature ABG pH 7.405 7.377 7.405 ABG pH at Pt Temp ABG pCO2 41.4 43.5 36.1 ABG pCO2 at Pt Temp ABG pO2 87.9 90.2 75.9 L ABG pO2 at Pt Temp ABG HCO3 25.4 25.0 23.0 ABG Total CO2 26.6 26.3 20.6 L ABG O2 Saturation 96.3 96.4 95.7 ABG Base Excess 0.6 -0.3 -1.7 ABG Sodium VBG pH VBG pCO2 VBG pO2 VBG HCO3 VBG Total CO2 VBG O2 Saturation VBG Base Excess Hemoglobin 10.9 L 11.4 L 10.0 L Hematocrit 32.0 L 34.0 L 31.0 L Potassium 4.0 4.0 4.5 Glucose 112 H 116 H 133 H Ionized Calcium FiO2 Sodium Chloride Carbon Dioxide Anion Gap BUN Creatinine GFR Calculation BUN/Creatinine Ratio Calculated Osmolality Calcium Venous Ioniz Calcium Magnesium Total Bilirubin Direct Bilirubin AST ALT Alkaline Phosphatase Total Creatine Kinase CK-MB (CK-2) CK and CKMB Interp Troponin I Total Protein Albumin Globulin Albumin/Globulin Ratio Urine Color Urine Appearance Urine pH Ur Specific Deposit Urine Protein Urine Glucose (UA) Urine Ketones Urine Blood Urine Nitrate Urine Bilirubin Urine Urobilinogen Urine Leukocytes Urine RBC Urine WBC Ur Culture Indicated? Blood Type Antibody Screen Crossmatch 09/07/16 09/07/16 09/07/16 03:30 03:30 03:30 WBC 14.8 H D RBC 2.92 L Hgb 9.7 L Hct 28.7 L MCV 98.3 MCH 33 MCHC 33.8 RDW 16.4 Plt Count 121 L MPV 10.8 Neut % (Auto) 94.4 H Lymph % (Auto) 2.8 L [place] % (Auto) 1.8 Eos % (Auto) 0.0 Baso % (Auto) 0.1 Neut # (Auto) 13.9 H Lymph # (Auto) 0.4 L [place] # (Auto) 0.3 Eos # (Auto) 0.0 Baso # (Auto) 0.0 Total Counted 100 Immature Gran % 0.9 Nucleated RBC % 0.0 Immature Gran # 0.14 Segmented Neutrophils 95 H Band Neutrophils 3 Lymphocytes 1 L Monocytes 1 L Eosinophils Nucleated RBCs # 0.00 Platelet Estimate Normal Hypochromasia 1+ Macrocytosis Slight Ovalocytes Slight Morphology Comment INR PT Patient/Control Mix Circ Anticoag PTT Patient Temperature ABG pH ABG pH at Pt Temp ABG pCO2 ABG pCO2 at Pt Temp ABG pO2 ABG pO2 at Pt Temp ABG HCO3 ABG Total CO2 ABG O2 Saturation ABG Base Excess ABG Sodium VBG pH VBG pCO2 VBG pO2 VBG HCO3 VBG Total CO2 VBG O2 Saturation VBG Base Excess Hemoglobin Hematocrit Potassium 4.4 Glucose 144 H Ionized Calcium FiO2 Sodium 140 Chloride 105 Carbon Dioxide 24 Anion Gap 15.4 H BUN 25 H Creatinine 1.40 H GFR Calculation 66 BUN/Creatinine Ratio 17.00 Calculated Osmolality 285.4 Calcium 7.7 L Venous Ioniz Calcium Magnesium 1.8 Total Bilirubin 0.70 Direct Bilirubin 0.20 AST 30 ALT 24 Alkaline Phosphatase 45 Total Creatine Kinase 264 CK-MB (CK-2) 11.4 H CK and CKMB Interp 4.3 Troponin I 2.400 H Total Protein 5.3 L Albumin 3.1 L Globulin 2.2 L Albumin/Globulin Ratio 1.4 Urine Color Urine Appearance Urine pH Ur Specific Deposit Urine Protein Urine Glucose (UA) Urine Ketones Urine Blood Urine Nitrate Urine Bilirubin Urine Urobilinogen Urine Leukocytes Urine RBC Urine WBC Ur Culture Indicated? Blood Type Antibody Screen Crossmatch 09/07/16 03:30 WBC RBC Hgb Hct MCV MCH MCHC RDW Plt Count MPV Neut % (Auto) Lymph % (Auto) [place] % (Auto) Eos % (Auto) Baso % (Auto) Neut # (Auto) Lymph # (Auto) [place] # (Auto) Eos # (Auto) Baso # (Auto) Total Counted Immature Gran % Nucleated RBC % Immature Gran # Segmented Neutrophils Band Neutrophils Lymphocytes Monocytes Eosinophils Nucleated RBCs # Platelet Estimate Hypochromasia Macrocytosis Ovalocytes Morphology Comment INR PT Patient/Control Mix Circ Anticoag PTT Patient Temperature ABG pH 7.412 ABG pH at Pt Temp ABG pCO2 38.4 ABG pCO2 at Pt Temp ABG pO2 82.4 ABG pO2 at Pt Temp ABG HCO3 23.9 ABG Total CO2 25.1 ABG O2 Saturation 96.0 ABG Base Excess -0.5 ABG Sodium VBG pH VBG pCO2 VBG pO2 VBG HCO3 VBG Total CO2 VBG O2 Saturation VBG Base Excess Hemoglobin 10.8 L Hematocrit 32.0 L Potassium 4.4 Glucose 134 H Ionized Calcium FiO2 Sodium Chloride Carbon Dioxide Anion Gap BUN Creatinine GFR Calculation BUN/Creatinine Ratio Calculated Osmolality Calcium Venous Ioniz Calcium Magnesium Total Bilirubin Direct Bilirubin AST ALT Alkaline Phosphatase Total Creatine Kinase CK-MB (CK-2) CK and CKMB Interp Troponin I Total Protein Albumin Globulin Albumin/Globulin Ratio Urine Color Urine Appearance Urine pH Ur Specific Deposit Urine Protein Urine Glucose (UA) Urine Ketones Urine Blood Urine Nitrate Urine Bilirubin Urine Urobilinogen Urine Leukocytes Urine RBC Urine WBC Ur Culture Indicated? Blood Type Antibody Screen Crossmatch Quality Measures - VTE Contraindication to Pharmacological VTE Prophylaxis: High Risk of Bleeding
--- NOTE | 2016-09-07 06:30 | Cardiothoracic Progress Note ---
Cardiothoracic Subjective Interval history: Patient is awake alert and extubated. He had a fairly comfortable night and his vital signs were stable through the night. His blood gases are satisfactory postextubation. Urine output is good and creatinine is 1.4 up from 1.3 yesterday. Chest tube drainage is minimal and his chest tubes are discontinued. Patient still is in second-degree heart block and so remains AV paced. I think he can be transferred to telemetry later this morning. Exam (Progress Note) - Constitutional Vitals: Period Temp Pulse Resp BP Sys/Triana Pulse Ox Last 24 Hr 95.6 F-99.0 F 80-80 8-14 83-162/48-81 94-99 Result/EKG - Labs CBC & BMP: 09/07/16 03:30 09/07/16 03:30 Labs: Laboratory Results - last 24 hr 09/05/16 09/06/16 09/06/16 04:40 07:00 07:42 WBC RBC Hgb Hct MCV MCH MCHC RDW Plt Count 125 L D MPV Neut % (Auto) Lymph % (Auto) [place] % (Auto) Eos % (Auto) Baso % (Auto) Neut # (Auto) Lymph # (Auto) [place] # (Auto) Eos # (Auto) Baso # (Auto) Total Counted Immature Gran % Nucleated RBC % Immature Gran # Segmented Neutrophils Band Neutrophils Lymphocytes Monocytes Eosinophils Nucleated RBCs # Platelet Estimate Hypochromasia Macrocytosis Ovalocytes Morphology Comment INR PT Patient/Control Mix Circ Anticoag PTT Patient Temperature ABG pH ABG pH at Pt Temp ABG pCO2 ABG pCO2 at Pt Temp ABG pO2 ABG pO2 at Pt Temp ABG HCO3 ABG Total CO2 ABG O2 Saturation ABG Base Excess ABG Sodium VBG pH VBG pCO2 VBG pO2 VBG HCO3 VBG Total CO2 VBG O2 Saturation VBG Base Excess Hemoglobin Hematocrit Potassium Glucose Ionized Calcium FiO2 Sodium Chloride Carbon Dioxide Anion Gap BUN Creatinine GFR Calculation BUN/Creatinine Ratio Calculated Osmolality Calcium Venous Ioniz Calcium Magnesium Total Bilirubin Direct Bilirubin AST ALT Alkaline Phosphatase Total Creatine Kinase CK-MB (CK-2) CK and CKMB Interp Troponin I Total Protein Albumin Globulin Albumin/Globulin Ratio Urine Color Yellow Urine Appearance Clear Urine pH 6.0 Ur Specific Shorter 1.012 Urine Protein Negative Urine Glucose (UA) Negative Urine Ketones Negative Urine Blood Negative Urine Nitrate Negative Urine Bilirubin Negative Urine Urobilinogen < 2.0 H Urine Leukocytes Negative Urine RBC 1 Urine WBC 1 Ur Culture Indicated? Not indicated Blood Type A POSITIVE Antibody Screen Negative Crossmatch See Detail 09/06/16 09/06/16 09/06/16 07:42 08:58 09:37 WBC RBC Hgb Hct MCV MCH MCHC RDW Plt Count MPV Neut % (Auto) Lymph % (Auto) [place] % (Auto) Eos % (Auto) Baso % (Auto) Neut # (Auto) Lymph # (Auto) [place] # (Auto) Eos # (Auto) Baso # (Auto) Total Counted Immature Gran % Nucleated RBC % Immature Gran # Segmented Neutrophils Band Neutrophils Lymphocytes Monocytes Eosinophils Nucleated RBCs # Platelet Estimate Hypochromasia Macrocytosis Ovalocytes Morphology Comment INR PT Patient/Control Mix Circ Anticoag PTT Patient Temperature 37 37 37 ABG pH 7.456 H ABG pH at Pt Temp 7.456 7.393 7.427 ABG pCO2 37.0 ABG pCO2 at Pt Temp 37.0 43.1 40.2 ABG pO2 377.4 H ABG pO2 at Pt Temp 377.4 46.5 35.2 ABG HCO3 25.5 ABG Total CO2 26.6 ABG O2 Saturation 99.2 ABG Base Excess 1.7 ABG Sodium 133 L 130 L 132 L VBG pH 7.393 7.427 VBG pCO2 43.1 40.2 L VBG pO2 46.5 H 35.2 VBG HCO3 25.3 25.8 VBG Total CO2 24.3 24.7 VBG O2 Saturation 82.7 69.0 VBG Base Excess 1.2 2.1 Hemoglobin 10.2 L 8.9 L 8.4 L Hematocrit 30.0 L 27.6 L 26.3 L Potassium 3.7 4.7 3.9 Glucose 172 H 324 H 272 H Ionized Calcium 1.05 L FiO2 21.00 80.00 Sodium Chloride Carbon Dioxide Anion Gap BUN Creatinine GFR Calculation BUN/Creatinine Ratio Calculated Osmolality Calcium Venous Ioniz Calcium 0.98 L 0.94 L Magnesium Total Bilirubin Direct Bilirubin AST ALT Alkaline Phosphatase Total Creatine Kinase CK-MB (CK-2) CK and CKMB Interp Troponin I Total Protein Albumin Globulin Albumin/Globulin Ratio Urine Color Urine Appearance Urine pH Ur Specific Shorter Urine Protein Urine Glucose (UA) Urine Ketones Urine Blood Urine Nitrate Urine Bilirubin Urine Urobilinogen Urine Leukocytes Urine RBC Urine WBC Ur Culture Indicated? Blood Type Antibody Screen Crossmatch 09/06/16 09/06/16 09/06/16 10:10 10:10 11:00 WBC 8.8 RBC 2.67 L Hgb 9.3 L Hct 26.8 L MCV 100.4 MCH 35 H MCHC 34.7 RDW 14.5 Plt Count 39 L* D 114 L D MPV 10.1 Neut % (Auto) 87.8 H Lymph % (Auto) 4.5 L [place] % (Auto) 3.8 Eos % (Auto) 1.6 Baso % (Auto) 0.1 Neut # (Auto) 7.7 H Lymph # (Auto) 0.4 L [place] # (Auto) 0.3 Eos # (Auto) 0.1 Baso # (Auto) 0.0 Total Counted 100 Immature Gran % 2.2 Nucleated RBC % 0.0 Immature Gran # 0.19 Segmented Neutrophils 89 H Band Neutrophils 4 Lymphocytes 4 L Monocytes 2 Eosinophils 1 Nucleated RBCs # 0.00 Platelet Estimate Adequate Hypochromasia 1+ Macrocytosis 1+ Ovalocytes Morphology Comment INR PT Patient/Control Mix Circ Anticoag PTT Patient Temperature 37 ABG pH 7.425 ABG pH at Pt Temp 7.425 ABG pCO2 39.1 ABG pCO2 at Pt Temp 39.1 ABG pO2 187.0 H ABG pO2 at Pt Temp 187.0 ABG HCO3 25.6 ABG Total CO2 23.6 ABG O2 Saturation 99.8 ABG Base Excess 1.3 ABG Sodium 133 L VBG pH VBG pCO2 VBG pO2 VBG HCO3 VBG Total CO2 VBG O2 Saturation VBG Base Excess Hemoglobin 8.9 L Hematocrit 27.6 L Potassium 4.1 Glucose 232 H Ionized Calcium 1.14 L FiO2 Sodium Chloride Carbon Dioxide Anion Gap BUN Creatinine GFR Calculation BUN/Creatinine Ratio Calculated Osmolality Calcium Venous Ioniz Calcium Magnesium Total Bilirubin Direct Bilirubin AST ALT Alkaline Phosphatase Total Creatine Kinase CK-MB (CK-2) CK and CKMB Interp Troponin I Total Protein Albumin Globulin Albumin/Globulin Ratio Urine Color Urine Appearance Urine pH Ur Specific Shorter Urine Protein Urine Glucose (UA) Urine Ketones Urine Blood Urine Nitrate Urine Bilirubin Urine Urobilinogen Urine Leukocytes Urine RBC Urine WBC Ur Culture Indicated? Blood Type Antibody Screen Crossmatch 09/06/16 09/06/16 09/06/16 11:00 11:00 11:00 WBC RBC Hgb Hct MCV MCH MCHC RDW Plt Count MPV Neut % (Auto) Lymph % (Auto) [place] % (Auto) Eos % (Auto) Baso % (Auto) Neut # (Auto) Lymph # (Auto) [place] # (Auto) Eos # (Auto) Baso # (Auto) Total Counted Immature Gran % Nucleated RBC % Immature Gran # Segmented Neutrophils Band Neutrophils Lymphocytes Monocytes Eosinophils Nucleated RBCs # Platelet Estimate Hypochromasia Macrocytosis Ovalocytes Morphology Comment INR 1.1 PT Patient/Control Mix 11.5 Circ Anticoag PTT 25.5 Patient Temperature ABG pH 7.472 H ABG pH at Pt Temp ABG pCO2 35.3 ABG pCO2 at Pt Temp ABG pO2 154.9 H ABG pO2 at Pt Temp ABG HCO3 25.2 ABG Total CO2 26.3 ABG O2 Saturation 98.5 ABG Base Excess 1.7 ABG Sodium VBG pH VBG pCO2 VBG pO2 VBG HCO3 VBG Total CO2 VBG O2 Saturation VBG Base Excess Hemoglobin 10.3 L Hematocrit 30.0 L Potassium 4.2 4.0 Glucose 217 H 216 H Ionized Calcium FiO2 Sodium 138 Chloride 102 Carbon Dioxide 27 Anion Gap 13.2 BUN 18 Creatinine 1.30 GFR Calculation 73 BUN/Creatinine Ratio 13.00 Calculated Osmolality 283.7 Calcium 7.8 L Venous Ioniz Calcium Magnesium 2.0 Total Bilirubin 0.90 Direct Bilirubin AST 27 ALT 25 Alkaline Phosphatase 45 Total Creatine Kinase CK-MB (CK-2) CK and CKMB Interp Troponin I Total Protein 4.8 L Albumin 2.5 L Globulin 2.3 Albumin/Globulin Ratio 1.0 L Urine Color Urine Appearance Urine pH Ur Specific Shorter Urine Protein Urine Glucose (UA) Urine Ketones Urine Blood Urine Nitrate Urine Bilirubin Urine Urobilinogen Urine Leukocytes Urine RBC Urine WBC Ur Culture Indicated? Blood Type Antibody Screen Crossmatch 09/06/16 09/06/16 09/06/16 11:00 11:45 14:25 WBC RBC Hgb Hct MCV MCH MCHC RDW Plt Count MPV Neut % (Auto) Lymph % (Auto) [place] % (Auto) Eos % (Auto) Baso % (Auto) Neut # (Auto) Lymph # (Auto) [place] # (Auto) Eos # (Auto) Baso # (Auto) Total Counted Immature Gran % Nucleated RBC % Immature Gran # Segmented Neutrophils Band Neutrophils Lymphocytes Monocytes Eosinophils Nucleated RBCs # Platelet Estimate Hypochromasia Macrocytosis Ovalocytes Morphology Comment INR PT Patient/Control Mix Circ Anticoag PTT Patient Temperature ABG pH 7.489 H 7.520 H ABG pH at Pt Temp ABG pCO2 33.5 L 30.8 L ABG pCO2 at Pt Temp ABG pO2 117.0 H 90.0 ABG pO2 at Pt Temp ABG HCO3 26.8 H 24.6 ABG Total CO2 22.1 L 25.5 ABG O2 Saturation 99.2 97.3 ABG Base Excess 2.7 H 2.3 ABG Sodium VBG pH VBG pCO2 VBG pO2 VBG HCO3 VBG Total CO2 VBG O2 Saturation VBG Base Excess Hemoglobin 13.0 L D 11.8 L Hematocrit 39.9 L 35.0 L Potassium 3.6 3.8 Glucose 220 H 142 H Ionized Calcium FiO2 Sodium Chloride Carbon Dioxide Anion Gap BUN Creatinine GFR Calculation BUN/Creatinine Ratio Calculated Osmolality Calcium Venous Ioniz Calcium Magnesium Total Bilirubin Direct Bilirubin AST ALT Alkaline Phosphatase Total Creatine Kinase 207 CK-MB (CK-2) 9.0 H CK and CKMB Interp 4.3 Troponin I 1.750 H Total Protein Albumin Globulin Albumin/Globulin Ratio Urine Color Urine Appearance Urine pH Ur Specific Shorter Urine Protein Urine Glucose (UA) Urine Ketones Urine Blood Urine Nitrate Urine Bilirubin Urine Urobilinogen Urine Leukocytes Urine RBC Urine WBC Ur Culture Indicated? Blood Type Antibody Screen Crossmatch 09/06/16 09/06/16 09/06/16 16:10 19:00 19:10 WBC RBC Hgb Hct MCV MCH MCHC RDW Plt Count MPV Neut % (Auto) Lymph % (Auto) [place] % (Auto) Eos % (Auto) Baso % (Auto) Neut # (Auto) Lymph # (Auto) [place] # (Auto) Eos # (Auto) Baso # (Auto) Total Counted Immature Gran % Nucleated RBC % Immature Gran # Segmented Neutrophils Band Neutrophils Lymphocytes Monocytes Eosinophils Nucleated RBCs # Platelet Estimate Hypochromasia Macrocytosis Ovalocytes Morphology Comment INR PT Patient/Control Mix Circ Anticoag PTT Patient Temperature ABG pH 7.451 H 7.412 ABG pH at Pt Temp ABG pCO2 36.0 39.4 ABG pCO2 at Pt Temp ABG pO2 115.0 H 77.8 L ABG pO2 at Pt Temp ABG HCO3 25.6 24.9 ABG Total CO2 22.7 L 23.0 ABG O2 Saturation 98.8 96.0 ABG Base Excess 1.4 0.6 ABG Sodium VBG pH VBG pCO2 VBG pO2 VBG HCO3 VBG Total CO2 VBG O2 Saturation VBG Base Excess Hemoglobin 9.4 L D Hematocrit 29.0 L Potassium 4.5 Glucose 148 H Ionized Calcium FiO2 Sodium Chloride Carbon Dioxide Anion Gap BUN Creatinine GFR Calculation BUN/Creatinine Ratio Calculated Osmolality Calcium Venous Ioniz Calcium Magnesium Total Bilirubin Direct Bilirubin AST ALT Alkaline Phosphatase Total Creatine Kinase 252 D CK-MB (CK-2) 9.5 H CK and CKMB Interp 3.8 Troponin I 2.790 H D Total Protein Albumin Globulin Albumin/Globulin Ratio Urine Color Urine Appearance Urine pH Ur Specific Shorter Urine Protein Urine Glucose (UA) Urine Ketones Urine Blood Urine Nitrate Urine Bilirubin Urine Urobilinogen Urine Leukocytes Urine RBC Urine WBC Ur Culture Indicated? Blood Type Antibody Screen Crossmatch 09/07/16 09/07/16 09/07/16 00:07 00:36 01:38 WBC RBC Hgb Hct MCV MCH MCHC RDW Plt Count MPV Neut % (Auto) Lymph % (Auto) [place] % (Auto) Eos % (Auto) Baso % (Auto) Neut # (Auto) Lymph # (Auto) [place] # (Auto) Eos # (Auto) Baso # (Auto) Total Counted Immature Gran % Nucleated RBC % Immature Gran # Segmented Neutrophils Band Neutrophils Lymphocytes Monocytes Eosinophils Nucleated RBCs # Platelet Estimate Hypochromasia Macrocytosis Ovalocytes Morphology Comment INR PT Patient/Control Mix Circ Anticoag PTT Patient Temperature ABG pH 7.405 7.377 7.405 ABG pH at Pt Temp ABG pCO2 41.4 43.5 36.1 ABG pCO2 at Pt Temp ABG pO2 87.9 90.2 75.9 L ABG pO2 at Pt Temp ABG HCO3 25.4 25.0 23.0 ABG Total CO2 26.6 26.3 20.6 L ABG O2 Saturation 96.3 96.4 95.7 ABG Base Excess 0.6 -0.3 -1.7 ABG Sodium VBG pH VBG pCO2 VBG pO2 VBG HCO3 VBG Total CO2 VBG O2 Saturation VBG Base Excess Hemoglobin 10.9 L 11.4 L 10.0 L Hematocrit 32.0 L 34.0 L 31.0 L Potassium 4.0 4.0 4.5 Glucose 112 H 116 H 133 H Ionized Calcium FiO2 Sodium Chloride Carbon Dioxide Anion Gap BUN Creatinine GFR Calculation BUN/Creatinine Ratio Calculated Osmolality Calcium Venous Ioniz Calcium Magnesium Total Bilirubin Direct Bilirubin AST ALT Alkaline Phosphatase Total Creatine Kinase CK-MB (CK-2) CK and CKMB Interp Troponin I Total Protein Albumin Globulin Albumin/Globulin Ratio Urine Color Urine Appearance Urine pH Ur Specific Shorter Urine Protein Urine Glucose (UA) Urine Ketones Urine Blood Urine Nitrate Urine Bilirubin Urine Urobilinogen Urine Leukocytes Urine RBC Urine WBC Ur Culture Indicated? Blood Type Antibody Screen Crossmatch 09/07/16 09/07/16 09/07/16 03:30 03:30 03:30 WBC 14.8 H D RBC 2.92 L Hgb 9.7 L Hct 28.7 L MCV 98.3 MCH 33 MCHC 33.8 RDW 16.4 Plt Count 121 L MPV 10.8 Neut % (Auto) 94.4 H Lymph % (Auto) 2.8 L [place] % (Auto) 1.8 Eos % (Auto) 0.0 Baso % (Auto) 0.1 Neut # (Auto) 13.9 H Lymph # (Auto) 0.4 L [place] # (Auto) 0.3 Eos # (Auto) 0.0 Baso # (Auto) 0.0 Total Counted 100 Immature Gran % 0.9 Nucleated RBC % 0.0 Immature Gran # 0.14 Segmented Neutrophils 95 H Band Neutrophils 3 Lymphocytes 1 L Monocytes 1 L Eosinophils Nucleated RBCs # 0.00 Platelet Estimate Normal Hypochromasia 1+ Macrocytosis Slight Ovalocytes Slight Morphology Comment INR PT Patient/Control Mix Circ Anticoag PTT Patient Temperature ABG pH ABG pH at Pt Temp ABG pCO2 ABG pCO2 at Pt Temp ABG pO2 ABG pO2 at Pt Temp ABG HCO3 ABG Total CO2 ABG O2 Saturation ABG Base Excess ABG Sodium VBG pH VBG pCO2 VBG pO2 VBG HCO3 VBG Total CO2 VBG O2 Saturation VBG Base Excess Hemoglobin Hematocrit Potassium 4.4 Glucose 144 H Ionized Calcium FiO2 Sodium 140 Chloride 105 Carbon Dioxide 24 Anion Gap 15.4 H BUN 25 H Creatinine 1.40 H GFR Calculation 66 BUN/Creatinine Ratio 17.00 Calculated Osmolality 285.4 Calcium 7.7 L Venous Ioniz Calcium Magnesium 1.8 Total Bilirubin 0.70 Direct Bilirubin 0.20 AST 30 ALT 24 Alkaline Phosphatase 45 Total Creatine Kinase 264 CK-MB (CK-2) 11.4 H CK and CKMB Interp 4.3 Troponin I 2.400 H Total Protein 5.3 L Albumin 3.1 L Globulin 2.2 L Albumin/Globulin Ratio 1.4 Urine Color Urine Appearance Urine pH Ur Specific Shorter Urine Protein Urine Glucose (UA) Urine Ketones Urine Blood Urine Nitrate Urine Bilirubin Urine Urobilinogen Urine Leukocytes Urine RBC Urine WBC Ur Culture Indicated? Blood Type Antibody Screen Crossmatch 09/07/16 03:30 WBC RBC Hgb Hct MCV MCH MCHC RDW Plt Count MPV Neut % (Auto) Lymph % (Auto) [place] % (Auto) Eos % (Auto) Baso % (Auto) Neut # (Auto) Lymph # (Auto) [place] # (Auto) Eos # (Auto) Baso # (Auto) Total Counted Immature Gran % Nucleated RBC % Immature Gran # Segmented Neutrophils Band Neutrophils Lymphocytes Monocytes Eosinophils Nucleated RBCs # Platelet Estimate Hypochromasia Macrocytosis Ovalocytes Morphology Comment INR PT Patient/Control Mix Circ Anticoag PTT Patient Temperature ABG pH 7.412 ABG pH at Pt Temp ABG pCO2 38.4 ABG pCO2 at Pt Temp ABG pO2 82.4 ABG pO2 at Pt Temp ABG HCO3 23.9 ABG Total CO2 25.1 ABG O2 Saturation 96.0 ABG Base Excess -0.5 ABG Sodium VBG pH VBG pCO2 VBG pO2 VBG HCO3 VBG Total CO2 VBG O2 Saturation VBG Base Excess Hemoglobin 10.8 L Hematocrit 32.0 L Potassium 4.4 Glucose 134 H Ionized Calcium FiO2 Sodium Chloride Carbon Dioxide Anion Gap BUN Creatinine GFR Calculation BUN/Creatinine Ratio Calculated Osmolality Calcium Venous Ioniz Calcium Magnesium Total Bilirubin Direct Bilirubin AST ALT Alkaline Phosphatase Total Creatine Kinase CK-MB (CK-2) CK and CKMB Interp Troponin I Total Protein Albumin Globulin Albumin/Globulin Ratio Urine Color Urine Appearance Urine pH Ur Specific Shorter Urine Protein Urine Glucose (UA) Urine Ketones Urine Blood Urine Nitrate Urine Bilirubin Urine Urobilinogen Urine Leukocytes Urine RBC Urine WBC Ur Culture Indicated? Blood Type Antibody Screen Crossmatch Quality Measures - VTE Contraindication to Pharmacological VTE Prophylaxis: High Risk of Bleeding
--- NOTE | 2016-09-07 07:41 | EKG Report ---
Stationary ECG Study [facility] Test Date: 09/07/2016 7:13:18 AM Pat Name: REBEKAH SIN Department: Room: 103 Gender: M Pelt Dropper: LAURIE : 1940 Requested by: Carmine Lazaro Order Number: [id number] Bailey MD: THO DE LA O Intervals [place] Rate: 80 P: -58 IL: 161 QRS: 17 QRSD: 216 T: 220 QT: 501 QTc: 536 Interpretive Statements ELECTRONIC ATRIAL PACEMAKER ELECTRONIC VENTRICULAR PACEMAKER ABNORMAL RHYTHM ECG Electronically Signed On 09-07-16 18:11:28 CDT by THO DE LA O [email or web address]
--- NOTE | 2016-09-07 07:43 | XRay Report ---
Referring Physician: Carmine Irving Exam: XR chest 1V portable Date: September 07, 2016 at 7:01 AM Reason: Post chest tube removal, evaluate for pneumothorax Comparison: Chest one view portable September 06, 2016 Findings: A right IJ catheter is again place with its distal tip at the right atrium. The previously seen additional lines are not identified. The cardiac silhouette is enlarged, and the patient is status post sternotomy. The interstitial markings are prominent bilaterally, and there are scattered opacities within both lower lung zones. This is concerning for pulmonary edema and atelectasis. No pneumothorax is identified, but there is mild left pleural fluid. The osseous structures appear stable. Impression: 1. The cardiac silhouette is slightly more prominent today, which could be related to the inspiratory and portable technique. 2. No pneumothorax is identified. 3. Persistent prominence of the interstitial markings and scattered opacities within both lower lung zones. This is most consistent with pulmonary edema and atelectasis. There is also mild left pleural fluid. PROCEDURE INTERPRETED AT [facility] DEPARTMENT OF RADIOLOGY Final Report Signed by: Dr. Marquita Skinner
[2016-09-07] MEDS: QUINAPRIL 20 MG TABLET PO SCH (08:03)
[2016-09-07] MEDS: MULTIVITAMIN (BEROCCA) TABLET PO SCH (08:03)
[2016-09-07] MEDS: ASPIRIN EC 325 MG TABLET PO SCH (08:04)
[2016-09-07] MEDS: DOCUSATE SODIUM 100 MG CAPSULE PO SCH (08:04)
[2016-09-07] MEDS: PANTOPRAZOLE 40 MG TABLET PO SCH (08:04)
[2016-09-07] MEDS: ALLOPURINOL 300 MG TABLET PO SCH ×2 (08:05→21:22)
[2016-09-07] MEDS: SODIUM CHLOR 0.45% KCL 20 MEQ 20 MEQ/1,000 ML BAG IV SCH (08:05)
[2016-09-07] MEDS ORDERED: INSULIN REGULAR 100 UNIT/ML ONE (08:10)
[2016-09-07] MEDS: INSULIN REGULAR 100 UNIT/ML SUBCUT SCH ×4 (08:12→21:21)
[2016-09-07] MEDS ORDERED: QUINAPRIL 20 MG TABLET PO SCH (09:00)
[2016-09-07] MEDS: FERROUS SULFATE 325 MG TABLET PO SCH (09:32)
[2016-09-07] MEDS: CHLORHEXIDINE 0.12% ORAL RINSE 60 ML BOTTLE SWISH/SPIT SCH (09:32)
--- NOTE | 2016-09-07 12:26 | Hospitalist Progress Note ---
Assessment and Plan (1) CAD (coronary artery disease) Status: Chronic Assessment and plan: s/p CABG X2 Current Visit: Yes (2) T2DM (type 2 diabetes mellitus) Status: Chronic Assessment and plan: Restart Lantus 20 units and continue high-dose sliding scale Current Visit: Yes Hospitalist: Subjective Interval history: Patient has been extubated and looks great sitting up drinking coffee this morning. He is wanting a whole plate of fruits. That is not appropriate for a diabetic. He needs diabetic reeducation. Exam - Constitutional Vitals: Period Temp Pulse Resp BP Sys/Triana Pulse Ox Last 24 Hr 95.6 F-98.3 F 80-80 8-20 83-162/48-81 94-99 Exam: Heart Rate-[RRR] Lungs-[clear GI-[+bs soft, NT] Results - Labs CBC & BMP: 09/07/16 03:30 09/07/16 03:30 Lab Results: I have reviewed the past 24 hour labs Quality Measures - VTE Contraindication to Pharmacological VTE Prophylaxis: High Risk of Bleeding Specialty Discharge - Follow Up or Referrals
[2016-09-07] MEDS ORDERED: INSULIN GLARGINE 100 UNIT/ML SUBCUT SCH (12:30)
[2016-09-07] MEDS: INSULIN GLARGINE 100 UNIT/ML SUBCUT SCH (12:43)
[2016-09-07] MEDS ORDERED: ROSUVASTATIN 10 MG TABLET PO SCH (21:00)
[2016-09-07] MEDS: ATORVASTATIN 10 MG TABLET PO SCH (21:22)
[2016-09-08] MEDS: KETOROLAC 30 MG/1 ML VIAL IV SCH ×4 (01:28→18:12)
[2016-09-08] MEDS: CHLORHEXIDINE 0.12% ORAL RINSE 60 ML BOTTLE SWISH/SPIT SCH ×3 (04:42→21:37)
[2016-09-08 05:30] LABS: Basophils % 0.1 % (0.0-0.8); Hematocrit 27.5 VOL% (42.0-52.0); Hemoglobin 9.5 GM/DL (14.0-18.0); Immature Granulocytes % 1.5 %; Immature Granulocytes Absolute 0.23 #; Lymphocytes # 0.9 10*3/uL (1.4-4.0); Lymphocytes % 6.1 % (21.2-54.2); Mean Corpuscular HGB Conc 34.5 GM/DL (32-36); Mean Corpuscular Hemoglobin 34 PG (27-34); Mean Corpuscular Volume 97.2 FL (87-102); Mean Platelet Volume 10.8 FL (9.6-12.0); Monocytes # 1.5 10*3/uL (0.11-0.8); Monocytes % 9.9 % (1.7-12.7); Neutrophils # 12.4 10*3/uL (1.4-7.4); Neutrophils % 82.4 % (38.7-73.9); Platelet Count 126 T/CUMM (130-400); Red Blood Count 2.83 MC/CUMM (3.8-5.5); Red Cell Distribution Width 16.3 % (9.3-17.3); White Blood Count 15.1 T/CUMM (4-12)
[2016-09-08] MEDS ORDERED: FUROSEMIDE 40 MG/4 ML VIAL IV ONE (06:00)
[2016-09-08 06:06] LABS: Albumin 2.8 G/DL (3.4-5.0); Bilirubin,Direct 0.2 MG/DL (0.0-0.20); Bilirubin,Indirect 0.6 MG/DL (0.0-1.0); Bilirubin,Total 0.8 MG/DL (0.2-1.0); CKMB % 2.4 %; Calcium 7.6 MG/DL (8.5-10.1); Magnesium 2.4 MG/DL (1.8-2.4); Osmolality,Calculated 283.8 MOS/KG (273-304); Potassium 4.3 MMOL/L (3.5-5.1); Total Protein 5.3 G/DL (6.4-8.3)
[2016-09-08 06:07] LABS: Troponin I Only 1.47 NG/ML (0.00-0.045)
--- NOTE | 2016-09-08 06:40 | Cardiothoracic Progress Note ---
Cardiothoracic Subjective Interval history: Patient looks and feels okay this morning. He did have some problems with his pacemaker during the night as it seems unable to capture. His rate did drop into the 40s during the night but this morning he is in sinus rhythm with a rate of 70 off the pacemaker. Hopefully this will maintain and he will not need permanent pacing. We will certainly defer to cardiology in this regard. Otherwise she has been stable with stable vital signs and has been breathing comfortably. His lab work and his x-ray all look acceptable for postoperative day 2. Exam (Progress Note) - Constitutional Vitals: Period Temp Pulse Resp BP Sys/Triana Pulse Ox Last 24 Hr 96.6 F-99.2 F 20-80 18-20 118-162/57-74 93-98 Result/EKG - Labs CBC & BMP: 09/08/16 04:33 09/08/16 04:33 Labs: Laboratory Results - last 24 hr 09/05/16 09/06/16 09/06/16 04:40 13:11 15:19 WBC RBC Hgb Hct MCV MCH MCHC RDW Plt Count MPV Neut % (Auto) Lymph % (Auto) [place] % (Auto) Eos % (Auto) Baso % (Auto) Neut # (Auto) Lymph # (Auto) [place] # (Auto) Eos # (Auto) Baso # (Auto) Immature Gran % Nucleated RBC % Immature Gran # Nucleated RBCs # Sodium Potassium Chloride Carbon Dioxide Anion Gap BUN Creatinine GFR Calculation BUN/Creatinine Ratio Glucose POC Glucose 134 H 105 Calculated Osmolality Calcium Magnesium Total Bilirubin Direct Bilirubin Indirect Bilirubin AST ALT Alkaline Phosphatase Total Creatine Kinase CK-MB (CK-2) CK and CKMB Interp Troponin I Total Protein Albumin Globulin Albumin/Globulin Ratio Blood Type A POSITIVE Antibody Screen Negative Crossmatch See Detail 09/06/16 09/06/16 09/06/16 16:08 17:11 18:09 WBC RBC Hgb Hct MCV MCH MCHC RDW Plt Count MPV Neut % (Auto) Lymph % (Auto) [place] % (Auto) Eos % (Auto) Baso % (Auto) Neut # (Auto) Lymph # (Auto) [place] # (Auto) Eos # (Auto) Baso # (Auto) Immature Gran % Nucleated RBC % Immature Gran # Nucleated RBCs # Sodium Potassium Chloride Carbon Dioxide Anion Gap BUN Creatinine GFR Calculation BUN/Creatinine Ratio Glucose POC Glucose 137 H 148 H 131 H Calculated Osmolality Calcium Magnesium Total Bilirubin Direct Bilirubin Indirect Bilirubin AST ALT Alkaline Phosphatase Total Creatine Kinase CK-MB (CK-2) CK and CKMB Interp Troponin I Total Protein Albumin Globulin Albumin/Globulin Ratio Blood Type Antibody Screen Crossmatch 09/06/16 09/06/16 09/06/16 20:01 21:00 22:03 WBC RBC Hgb Hct MCV MCH MCHC RDW Plt Count MPV Neut % (Auto) Lymph % (Auto) [place] % (Auto) Eos % (Auto) Baso % (Auto) Neut # (Auto) Lymph # (Auto) [place] # (Auto) Eos # (Auto) Baso # (Auto) Immature Gran % Nucleated RBC % Immature Gran # Nucleated RBCs # Sodium Potassium Chloride Carbon Dioxide Anion Gap BUN Creatinine GFR Calculation BUN/Creatinine Ratio Glucose POC Glucose 141 H 124 H 110 H Calculated Osmolality Calcium Magnesium Total Bilirubin Direct Bilirubin Indirect Bilirubin AST ALT Alkaline Phosphatase Total Creatine Kinase CK-MB (CK-2) CK and CKMB Interp Troponin I Total Protein Albumin Globulin Albumin/Globulin Ratio Blood Type Antibody Screen Crossmatch 09/06/16 09/07/16 09/07/16 23:07 00:06 01:03 WBC RBC Hgb Hct MCV MCH MCHC RDW Plt Count MPV Neut % (Auto) Lymph % (Auto) [place] % (Auto) Eos % (Auto) Baso % (Auto) Neut # (Auto) Lymph # (Auto) [place] # (Auto) Eos # (Auto) Baso # (Auto) Immature Gran % Nucleated RBC % Immature Gran # Nucleated RBCs # Sodium Potassium Chloride Carbon Dioxide Anion Gap BUN Creatinine GFR Calculation BUN/Creatinine Ratio Glucose POC Glucose 114 H 109 H 131 H Calculated Osmolality Calcium Magnesium Total Bilirubin Direct Bilirubin Indirect Bilirubin AST ALT Alkaline Phosphatase Total Creatine Kinase CK-MB (CK-2) CK and CKMB Interp Troponin I Total Protein Albumin Globulin Albumin/Globulin Ratio Blood Type Antibody Screen Crossmatch 09/07/16 09/07/16 09/07/16 02:52 04:16 05:03 WBC RBC Hgb Hct MCV MCH MCHC RDW Plt Count MPV Neut % (Auto) Lymph % (Auto) [place] % (Auto) Eos % (Auto) Baso % (Auto) Neut # (Auto) Lymph # (Auto) [place] # (Auto) Eos # (Auto) Baso # (Auto) Immature Gran % Nucleated RBC % Immature Gran # Nucleated RBCs # Sodium Potassium Chloride Carbon Dioxide Anion Gap BUN Creatinine GFR Calculation BUN/Creatinine Ratio Glucose POC Glucose 126 H 127 H 125 H Calculated Osmolality Calcium Magnesium Total Bilirubin Direct Bilirubin Indirect Bilirubin AST ALT Alkaline Phosphatase Total Creatine Kinase CK-MB (CK-2) CK and CKMB Interp Troponin I Total Protein Albumin Globulin Albumin/Globulin Ratio Blood Type Antibody Screen Crossmatch 09/07/16 09/07/16 09/07/16 05:53 07:52 11:19 WBC RBC Hgb Hct MCV MCH MCHC RDW Plt Count MPV Neut % (Auto) Lymph % (Auto) [place] % (Auto) Eos % (Auto) Baso % (Auto) Neut # (Auto) Lymph # (Auto) [place] # (Auto) Eos # (Auto) Baso # (Auto) Immature Gran % Nucleated RBC % Immature Gran # Nucleated RBCs # Sodium Potassium Chloride Carbon Dioxide Anion Gap BUN Creatinine GFR Calculation BUN/Creatinine Ratio Glucose POC Glucose 131 H 170 H 292 H Calculated Osmolality Calcium Magnesium Total Bilirubin Direct Bilirubin Indirect Bilirubin AST ALT Alkaline Phosphatase Total Creatine Kinase CK-MB (CK-2) CK and CKMB Interp Troponin I Total Protein Albumin Globulin Albumin/Globulin Ratio Blood Type Antibody Screen Crossmatch 09/07/16 09/07/16 09/08/16 15:18 18:54 01:26 WBC RBC Hgb Hct MCV MCH MCHC RDW Plt Count MPV Neut % (Auto) Lymph % (Auto) [place] % (Auto) Eos % (Auto) Baso % (Auto) Neut # (Auto) Lymph # (Auto) [place] # (Auto) Eos # (Auto) Baso # (Auto) Immature Gran % Nucleated RBC % Immature Gran # Nucleated RBCs # Sodium Potassium Chloride Carbon Dioxide Anion Gap BUN Creatinine GFR Calculation BUN/Creatinine Ratio Glucose POC Glucose 339 H 381 H 197 H Calculated Osmolality Calcium Magnesium Total Bilirubin Direct Bilirubin Indirect Bilirubin AST ALT Alkaline Phosphatase Total Creatine Kinase CK-MB (CK-2) CK and CKMB Interp Troponin I Total Protein Albumin Globulin Albumin/Globulin Ratio Blood Type Antibody Screen Crossmatch 09/08/16 09/08/16 09/08/16 04:33 04:33 05:06 WBC 15.1 H RBC 2.83 L Hgb 9.5 L Hct 27.5 L MCV 97.2 MCH 34 MCHC 34.5 RDW 16.3 Plt Count 126 L MPV 10.8 Neut % (Auto) 82.4 H Lymph % (Auto) 6.1 L [place] % (Auto) 9.9 Eos % (Auto) 0.0 Baso % (Auto) 0.1 Neut # (Auto) 12.4 H Lymph # (Auto) 0.9 L [place] # (Auto) 1.5 H Eos # (Auto) 0.0 Baso # (Auto) 0.0 Immature Gran % 1.5 Nucleated RBC % 0.0 Immature Gran # 0.23 Nucleated RBCs # 0.00 Sodium 137 Potassium 4.3 Chloride 102 Carbon Dioxide 26 Anion Gap 13.3 BUN 36 H Creatinine 1.40 H GFR Calculation 66 BUN/Creatinine Ratio 25.00 H Glucose 150 H POC Glucose 172 H Calculated Osmolality 283.8 Calcium 7.6 L Magnesium 2.4 Total Bilirubin 0.80 Direct Bilirubin 0.20 Indirect Bilirubin 0.6 AST 23 ALT 28 Alkaline Phosphatase 47 Total Creatine Kinase 267 CK-MB (CK-2) 6.4 H D CK and CKMB Interp 2.4 Troponin I 1.470 H D Total Protein 5.3 L Albumin 2.8 L Globulin 2.5 Albumin/Globulin Ratio 1.1 Blood Type Antibody Screen Crossmatch Quality Measures - VTE Contraindication to Pharmacological VTE Prophylaxis: High Risk of Bleeding Specialty Discharge - Follow Up or Referrals
--- NOTE | 2016-09-08 07:27 | XRay Report ---
Referring Physician: Carmine Irving Exam: XR chest 1V portable Date: September 08, 2016 at 5:36 AM Reason: Shortness of breath Comparison: Chest one view portable September 07, 2016 Findings: A right IJ catheter is again in place. The cardiac silhouette is again enlarged, and the patient is status post sternotomy. The interstitial markings are prominent bilaterally, and there are mild scattered opacities within the right lower lung zone and possibly the left lower lung zone. This likely represents mild pulmonary edema and atelectasis. No pneumothorax is identified, but there may be minimal bilateral pleural fluid. The osseous structures appear stable. Impression: There is slight decreased atelectasis at the lung bases. The study is otherwise similar to before. PROCEDURE INTERPRETED AT [facility] DEPARTMENT OF RADIOLOGY Final Report Signed by: Dr. Marquita Skinner
[2016-09-08] MEDS: MULTIVITAMIN (BEROCCA) TABLET PO SCH (09:12)
[2016-09-08] MEDS: ALLOPURINOL 300 MG TABLET PO SCH ×2 (09:12→21:37)
[2016-09-08] MEDS: DOCUSATE SODIUM 100 MG CAPSULE PO SCH (09:13)
[2016-09-08] MEDS: PANTOPRAZOLE 40 MG TABLET PO SCH (09:13)
[2016-09-08] MEDS: ASPIRIN EC 325 MG TABLET PO SCH (09:13)
[2016-09-08] MEDS: FERROUS SULFATE 325 MG TABLET PO SCH (09:13)
[2016-09-08] MEDS: INSULIN GLARGINE 100 UNIT/ML SUBCUT SCH (09:14)
[2016-09-08] MEDS: QUINAPRIL 20 MG TABLET PO SCH (09:18)
[2016-09-08] MEDS: SODIUM CHLOR 0.45% KCL 20 MEQ 20 MEQ/1,000 ML BAG IV SCH (09:27)
[2016-09-08] MEDS: INSULIN REGULAR 100 UNIT/ML SUBCUT SCH ×4 (09:27→21:27)
--- NOTE | 2016-09-08 09:56 | Cardiology Progress Note ---
Cardiology - PN: Subj Interval history: Cardiology note Postop day #2 QUINTERO graft to LAD and vein graft to OM branch. No temperature. Appetite good. Currently telemetry shows sinus rhythm in the 60s and 70s Blood pressure running a little high. 156/86 the left arm by me. Incision looks good. Regular rhythm. No gallop. Decreased breath sounds but fairly clear. Lab data today Hemoglobin 9.5 hematocrit 27.5 Sodium 137 potassium 4.3 chloride 102 CO2 26 BUN 36 creatinine 1.40 glucose 180 Impression Postop day 2, QUINTERO graft to LAD and vein graft OM branch Preop EF 35% Hypertension Diabetes Hypercholesterolemia 107 kg Plan Ambulate and monitor Begin Coreg 3.125 mg twice daily Accu-Chek sugars Exam (Progress Note) - Constitutional Vitals: Period Temp Pulse Resp BP Sys/Triana Pulse Ox Last 24 Hr 96.6 F-99.2 F 20-80 18-20 118-169/57-77 93-98 Result/EKG - Labs CBC & BMP: 09/08/16 04:33 09/08/16 04:33 Labs: Laboratory Results - last 24 hr 09/05/16 09/06/16 09/07/16 04:40 22:03 07:52 WBC RBC Hgb Hct MCV MCH MCHC RDW Plt Count MPV Neut % (Auto) Lymph % (Auto) [place] % (Auto) Eos % (Auto) Baso % (Auto) Neut # (Auto) Lymph # (Auto) [place] # (Auto) Eos # (Auto) Baso # (Auto) Immature Gran % Nucleated RBC % Immature Gran # Nucleated RBCs # Sodium Potassium Chloride Carbon Dioxide Anion Gap BUN Creatinine GFR Calculation BUN/Creatinine Ratio Glucose POC Glucose 110 H 170 H Calculated Osmolality Calcium Magnesium Total Bilirubin Direct Bilirubin Indirect Bilirubin AST ALT Alkaline Phosphatase Total Creatine Kinase CK-MB (CK-2) CK and CKMB Interp Troponin I Total Protein Albumin Globulin Albumin/Globulin Ratio Blood Type A POSITIVE Antibody Screen Negative Crossmatch See Detail 09/07/16 09/07/16 09/07/16 11:19 15:18 18:54 WBC RBC Hgb Hct MCV MCH MCHC RDW Plt Count MPV Neut % (Auto) Lymph % (Auto) [place] % (Auto) Eos % (Auto) Baso % (Auto) Neut # (Auto) Lymph # (Auto) [place] # (Auto) Eos # (Auto) Baso # (Auto) Immature Gran % Nucleated RBC % Immature Gran # Nucleated RBCs # Sodium Potassium Chloride Carbon Dioxide Anion Gap BUN Creatinine GFR Calculation BUN/Creatinine Ratio Glucose POC Glucose 292 H 339 H 381 H Calculated Osmolality Calcium Magnesium Total Bilirubin Direct Bilirubin Indirect Bilirubin AST ALT Alkaline Phosphatase Total Creatine Kinase CK-MB (CK-2) CK and CKMB Interp Troponin I Total Protein Albumin Globulin Albumin/Globulin Ratio Blood Type Antibody Screen Crossmatch 09/08/16 09/08/16 09/08/16 01:26 04:33 04:33 WBC 15.1 H RBC 2.83 L Hgb 9.5 L Hct 27.5 L MCV 97.2 MCH 34 MCHC 34.5 RDW 16.3 Plt Count 126 L MPV 10.8 Neut % (Auto) 82.4 H Lymph % (Auto) 6.1 L [place] % (Auto) 9.9 Eos % (Auto) 0.0 Baso % (Auto) 0.1 Neut # (Auto) 12.4 H Lymph # (Auto) 0.9 L [place] # (Auto) 1.5 H Eos # (Auto) 0.0 Baso # (Auto) 0.0 Immature Gran % 1.5 Nucleated RBC % 0.0 Immature Gran # 0.23 Nucleated RBCs # 0.00 Sodium 137 Potassium 4.3 Chloride 102 Carbon Dioxide 26 Anion Gap 13.3 BUN 36 H Creatinine 1.40 H GFR Calculation 66 BUN/Creatinine Ratio 25.00 H Glucose 150 H POC Glucose 197 H Calculated Osmolality 283.8 Calcium 7.6 L Magnesium 2.4 Total Bilirubin 0.80 Direct Bilirubin 0.20 Indirect Bilirubin 0.6 AST 23 ALT 28 Alkaline Phosphatase 47 Total Creatine Kinase 267 CK-MB (CK-2) 6.4 H D CK and CKMB Interp 2.4 Troponin I 1.470 H D Total Protein 5.3 L Albumin 2.8 L Globulin 2.5 Albumin/Globulin Ratio 1.1 Blood Type Antibody Screen Crossmatch 09/08/16 09/08/16 05:06 07:23 WBC RBC Hgb Hct MCV MCH MCHC RDW Plt Count MPV Neut % (Auto) Lymph % (Auto) [place] % (Auto) Eos % (Auto) Baso % (Auto) Neut # (Auto) Lymph # (Auto) [place] # (Auto) Eos # (Auto) Baso # (Auto) Immature Gran % Nucleated RBC % Immature Gran # Nucleated RBCs # Sodium Potassium Chloride Carbon Dioxide Anion Gap BUN Creatinine GFR Calculation BUN/Creatinine Ratio Glucose POC Glucose 172 H 180 H Calculated Osmolality Calcium Magnesium Total Bilirubin Direct Bilirubin Indirect Bilirubin AST ALT Alkaline Phosphatase Total Creatine Kinase CK-MB (CK-2) CK and CKMB Interp Troponin I Total Protein Albumin Globulin Albumin/Globulin Ratio Blood Type Antibody Screen Crossmatch Quality Measures - VTE Contraindication to Pharmacological VTE Prophylaxis: High Risk of Bleeding Specialty Discharge - Follow Up or Referrals
[2016-09-08] MEDS ORDERED: INSULIN GLARGINE 100 UNIT/ML SUBCUT SCH (12:16)
--- NOTE | 2016-09-08 12:18 | Hospitalist Progress Note ---
Assessment and Plan (1) CAD (coronary artery disease) Status: Chronic Assessment and plan: s/p CABG X2 Current Visit: Yes (2) T2DM (type 2 diabetes mellitus) Status: Chronic Assessment and plan: not controlled, increase lantus to 30 units and add mealtime insulin Current Visit: Yes Hospitalist: Subjective Interval history: BS too high, patient would like to take lantus at home. Patient not compliant at all with diet. Exam - Constitutional Vitals: Period Temp Pulse Resp BP Sys/Triana Pulse Ox Last 24 Hr 96.6 F-99.2 F 20-80 18-20 118-169/57-77 93-98 Exam: Heart Rate-[RRR] Lungs-[clear GI-[+bs soft, NT] Results - Labs CBC & BMP: 09/08/16 04:33 09/08/16 04:33 Lab Results: I have reviewed the past 24 hour labs Quality Measures - VTE Contraindication to Pharmacological VTE Prophylaxis: High Risk of Bleeding Specialty Discharge - Follow Up or Referrals
[2016-09-08] MEDS: INSULIN LISPRO 100 UNIT/ML SUBCUT SCH ×2 (16:44→21:25)
[2016-09-08] MEDS ORDERED: CARVEDILOL 3.125 MG TABLET PO SCH (21:00)
[2016-09-08] MEDS: ATORVASTATIN 10 MG TABLET PO SCH (21:25)
[2016-09-09] MEDS: KETOROLAC 30 MG/1 ML VIAL IV SCH (00:59)
[2016-09-09 04:57] LABS: Basophils % 0.1 % (0.0-0.8); Eosinophils % 0.4 % (0.00-10.9); Hematocrit 27.5 VOL% (42.0-52.0); Hemoglobin 8.9 GM/DL (14.0-18.0); Immature Granulocytes Absolute 0.11 #; Lymphocytes # 1.3 10*3/uL (1.4-4.0); Lymphocytes % 11.8 % (21.2-54.2); Mean Corpuscular HGB Conc 32.4 GM/DL (32-36); Mean Corpuscular Hemoglobin 33 PG (27-34); Mean Corpuscular Volume 101.9 FL (87-102); Mean Platelet Volume 10.6 FL (9.6-12.0); Monocytes # 1.4 10*3/uL (0.11-0.8); Monocytes % 12.9 % (1.7-12.7); Neutrophils % 73.8 % (38.7-73.9); Platelet Count 117 T/CUMM (130-400); White Blood Count 10.8 T/CUMM (4-12)
[2016-09-09 05:30] LABS: Alanine Aminotransferase 26 U/L (16-61); Albumin 2.8 G/DL (3.4-5.0); Alkaline Phosphatase 44 U/L (45-117); Aspartate Amino Transferase 15 U/L (0-37); Bilirubin,Indirect 0.6 MG/DL (0.0-1.0); Blood Urea Nitrogen 33 MG/DL (7-18); Calcium 7.7 MG/DL (8.5-10.1); Glucose 81 MG/DL (74-106); Magnesium 2.3 MG/DL (1.8-2.4); Osmolality,Calculated 284.4 MOS/KG (273-304); Sodium 140 MMOL/L (136-145)
[2016-09-09] MEDS: INSULIN LISPRO 100 UNIT/ML SUBCUT SCH ×3 (07:40→17:14)
--- NOTE | 2016-09-09 08:24 | Hospitalist Progress Note ---
Assessment and Plan (1) CAD (coronary artery disease) Status: Chronic Assessment and plan: s/p CABG X2 Current Visit: Yes (2) T2DM (type 2 diabetes mellitus) Status: Chronic Assessment and plan: not controlled, increase lantus to 40 units and add mealtime of 10 units insulin Current Visit: Yes Hospitalist: Subjective Interval history: Cannot fix his blood sugars when he is eating things he is not supposed to. I have stopped the fruit and the cranberry juice. Patient will have to be compliant with the 1500-calorie diet Exam - Constitutional Vitals: Period Temp Pulse Resp BP Sys/Triana Pulse Ox Last 24 Hr 9.2 F-98.6 F 63-71 16-98 132-161/64-72 96-97 Exam: Heart Rate-[RRR] Lungs-[clear GI-[+bs soft, NT] Results - Labs CBC & BMP: 09/09/16 04:03 09/09/16 04:03 Lab Results: I have reviewed the past 24 hour labs Quality Measures - VTE Contraindication to Pharmacological VTE Prophylaxis: High Risk of Bleeding Specialty Discharge - Follow Up or Referrals
--- NOTE | 2016-09-09 08:30 | Cardiology Progress Note ---
Cardiology - PN: Subj Interval history: Cardiology note Postop day #3 QUINTERO graft to LAD and vein graft OM branch. Preop EF 35%. Appetite good. Sugars have been running high. Telemetry shows steady sinus rhythm Blood pressure 154/80 Regular rhythm no murmur or gallop Incision looks good Decreased breath sounds few rhonchi Abdomen benign Lab data today White count 10.8 hemoglobin 8.9 hematocrit 27.5 Sodium 140 potassium 4.0 chloride 104 CO2 28 BUN 33 creatinine 1.20 glucose 106 Blood sugar 336 at 8 PM and blood sugar 347 at 4 PM yesterday Impression Postop day #3 two-vessel CABG Preop EF 35% Hypertension Diabetes Hypercholesteremia 107 kg Plan Ambulate and monitor Encourage spirometry Increase carvedilol 6.25 mg twice daily Accu-Chek sugars and be more prudent with diet Exam (Progress Note) - Constitutional Vitals: Period Temp Pulse Resp BP Sys/Triana Pulse Ox Last 24 Hr 9.2 F-98.6 F 63-71 16-98 132-161/64-72 96-97 Result/EKG - Labs CBC & BMP: 09/09/16 04:03 09/09/16 04:03 Labs: Laboratory Results - last 24 hr 09/08/16 09/08/16 09/08/16 11:09 16:03 20:11 WBC RBC Hgb Hct MCV MCH MCHC RDW Plt Count MPV Neut % (Auto) Lymph % (Auto) [place] % (Auto) Eos % (Auto) Baso % (Auto) Neut # (Auto) Lymph # (Auto) [place] # (Auto) Eos # (Auto) Baso # (Auto) Immature Gran % Nucleated RBC % Immature Gran # Nucleated RBCs # Sodium Potassium Chloride Carbon Dioxide Anion Gap BUN Creatinine GFR Calculation BUN/Creatinine Ratio Glucose POC Glucose 299 H 347 H 336 H Calculated Osmolality Calcium Magnesium Total Bilirubin Direct Bilirubin Indirect Bilirubin AST ALT Alkaline Phosphatase Total Creatine Kinase CK-MB (CK-2) Troponin I Total Protein Albumin Globulin Albumin/Globulin Ratio 09/09/16 09/09/16 09/09/16 04:03 04:03 07:22 WBC 10.8 RBC 2.70 L Hgb 8.9 L Hct 27.5 L MCV 101.9 MCH 33 MCHC 32.4 RDW 16.0 Plt Count 117 L MPV 10.6 Neut % (Auto) 73.8 Lymph % (Auto) 11.8 L [place] % (Auto) 12.9 H Eos % (Auto) 0.4 Baso % (Auto) 0.1 Neut # (Auto) 8.0 H Lymph # (Auto) 1.3 L [place] # (Auto) 1.4 H Eos # (Auto) 0.0 Baso # (Auto) 0.0 Immature Gran % 1.0 Nucleated RBC % 0.0 Immature Gran # 0.11 Nucleated RBCs # 0.00 Sodium 140 Potassium 4.0 Chloride 104 Carbon Dioxide 28 Anion Gap 12.0 BUN 33 H Creatinine 1.20 GFR Calculation 80 BUN/Creatinine Ratio 27.00 H Glucose 81 POC Glucose 106 Calculated Osmolality 284.4 Calcium 7.7 L Magnesium 2.3 Total Bilirubin 0.70 Direct Bilirubin 0.10 Indirect Bilirubin 0.6 AST 15 ALT 26 Alkaline Phosphatase 44 L Total Creatine Kinase 172 D CK-MB (CK-2) 2.5 Troponin I 1.010 H D Total Protein 5.0 L Albumin 2.8 L Globulin 2.2 L Albumin/Globulin Ratio 1.2 Quality Measures - VTE Contraindication to Pharmacological VTE Prophylaxis: High Risk of Bleeding Specialty Discharge - Follow Up or Referrals
[2016-09-09] MEDS: INSULIN REGULAR 100 UNIT/ML SUBCUT SCH ×3 (08:49→22:26)
--- NOTE | 2016-09-09 08:58 | XRay Report ---
Portable chest Date: 09/09/2016 Clinical history: Shortness of breath Comparison: 09/08/2016 Technique: Portable AP sitting chest Findings: Stable cardiomegaly with prior median sternotomy. Stable right IJ CVP line. Fairly stable pleural and parenchymal findings at the left lung base. The mediastinum, osseous, and soft tissues are stable in appearance. Impression: No significant change in the appearance of the chest were compared to the previous exam. PROCEDURE INTERPRETED AT [facility] DEPARTMENT OF RADIOLOGY Final Report Signed by: Dr. Ailyn Rosa
[2016-09-09] MEDS: MULTIVITAMIN (BEROCCA) TABLET PO SCH (09:02)
[2016-09-09] MEDS: QUINAPRIL 20 MG TABLET PO SCH (09:02)
[2016-09-09] MEDS: ALLOPURINOL 300 MG TABLET PO SCH ×2 (09:02→22:24)
[2016-09-09] MEDS: ASPIRIN EC 325 MG TABLET PO SCH (09:03)
[2016-09-09] MEDS: DOCUSATE SODIUM 100 MG CAPSULE PO SCH (09:03)
[2016-09-09] MEDS: CARVEDILOL 6.25 MG TABLET PO SCH ×2 (09:03→22:25)
[2016-09-09] MEDS: PANTOPRAZOLE 40 MG TABLET PO SCH (09:03)
[2016-09-09] MEDS: INSULIN GLARGINE 100 UNIT/ML SUBCUT SCH (09:03)
[2016-09-09] MEDS: FERROUS SULFATE 325 MG TABLET PO SCH (09:04)
[2016-09-09] MEDS: CHLORHEXIDINE 0.12% ORAL RINSE 60 ML BOTTLE SWISH/SPIT SCH ×2 (09:05→22:28)
--- NOTE | 2016-09-09 09:30 | Cardiothoracic Progress Note ---
Cardiothoracic Subjective Interval history: Patient looks and feels okay. He is breathing comfortably and his vital signs are stable and he remains in sinus rhythm with a rate between 70 and 80. His wounds appear to be healing okay and we are continuing to increase his activity according to routine postoperative protocol. Exam (Progress Note) - Constitutional Vitals: Period Temp Pulse Resp BP Sys/Triana Pulse Ox Last 24 Hr 9.2 F-98.6 F 63-71 16-98 132-161/64-72 96-97 Result/EKG - Labs CBC & BMP: 09/09/16 04:03 09/09/16 04:03 Labs: Laboratory Results - last 24 hr 09/08/16 09/08/16 09/08/16 11:09 16:03 20:11 WBC RBC Hgb Hct MCV MCH MCHC RDW Plt Count MPV Neut % (Auto) Lymph % (Auto) [place] % (Auto) Eos % (Auto) Baso % (Auto) Neut # (Auto) Lymph # (Auto) [place] # (Auto) Eos # (Auto) Baso # (Auto) Immature Gran % Nucleated RBC % Immature Gran # Nucleated RBCs # Sodium Potassium Chloride Carbon Dioxide Anion Gap BUN Creatinine GFR Calculation BUN/Creatinine Ratio Glucose POC Glucose 299 H 347 H 336 H Calculated Osmolality Calcium Magnesium Total Bilirubin Direct Bilirubin Indirect Bilirubin AST ALT Alkaline Phosphatase Total Creatine Kinase CK-MB (CK-2) Troponin I Total Protein Albumin Globulin Albumin/Globulin Ratio 09/09/16 09/09/16 09/09/16 04:03 04:03 07:22 WBC 10.8 RBC 2.70 L Hgb 8.9 L Hct 27.5 L MCV 101.9 MCH 33 MCHC 32.4 RDW 16.0 Plt Count 117 L MPV 10.6 Neut % (Auto) 73.8 Lymph % (Auto) 11.8 L [place] % (Auto) 12.9 H Eos % (Auto) 0.4 Baso % (Auto) 0.1 Neut # (Auto) 8.0 H Lymph # (Auto) 1.3 L [place] # (Auto) 1.4 H Eos # (Auto) 0.0 Baso # (Auto) 0.0 Immature Gran % 1.0 Nucleated RBC % 0.0 Immature Gran # 0.11 Nucleated RBCs # 0.00 Sodium 140 Potassium 4.0 Chloride 104 Carbon Dioxide 28 Anion Gap 12.0 BUN 33 H Creatinine 1.20 GFR Calculation 80 BUN/Creatinine Ratio 27.00 H Glucose 81 POC Glucose 106 Calculated Osmolality 284.4 Calcium 7.7 L Magnesium 2.3 Total Bilirubin 0.70 Direct Bilirubin 0.10 Indirect Bilirubin 0.6 AST 15 ALT 26 Alkaline Phosphatase 44 L Total Creatine Kinase 172 D CK-MB (CK-2) 2.5 Troponin I 1.010 H D Total Protein 5.0 L Albumin 2.8 L Globulin 2.2 L Albumin/Globulin Ratio 1.2 Quality Measures - VTE Contraindication to Pharmacological VTE Prophylaxis: High Risk of Bleeding Specialty Discharge - Follow Up or Referrals
[2016-09-09] MEDS: oxyCODONE/ACETAMINOPHEN 5-325 MG TABLET PO PRN (13:46)
[2016-09-09] MEDS ORDERED: INSULIN REGULAR 100 UNIT/ML IV ONE (21:13)
[2016-09-09] MEDS ORDERED: GLUCAGON 1 MG VIAL IM PRN (21:30)
[2016-09-09] MEDS ORDERED: DEXTROSE 50% 25 GM/50 ML VIAL IV PRN (21:30)
[2016-09-09] MEDS: ATORVASTATIN 10 MG TABLET PO SCH (22:22)
--- NOTE | 2016-09-10 08:10 | Cardiothoracic Progress Note ---
Cardiothoracic Subjective Interval history: No real problems. Vital signs are stable and he is breathing comfortably. He remains in sinus rhythm. Hopefully he can be discharged in the morning. Exam (Progress Note) - Constitutional Vitals: Period Temp Pulse Resp BP Sys/Triana Pulse Ox Last 24 Hr 98 F-99.2 F 65-73 16-20 149-175/68-85 95-100 Result/EKG - Labs CBC & BMP: 09/09/16 04:03 09/09/16 04:03 Labs: Laboratory Results - last 24 hr 09/09/16 09/09/16 09/09/16 11:47 15:54 20:36 POC Glucose 242 H 353 H 401 H 09/10/16 09/10/16 03:14 07:16 POC Glucose 70 L 159 H Quality Measures - VTE Contraindication to Pharmacological VTE Prophylaxis: High Risk of Bleeding Specialty Discharge - Follow Up or Referrals
--- NOTE | 2016-09-10 08:23 | Cardiology Progress Note ---
Cardiology - PN: Subj Interval history: Cardiology note Postop day #4 QUINTERO graft to LAD and vein graft OM branch Preop EF 35% Telemetry shows steady sinus rhythm. Sugars have been labile. Blood sugar 401 8 PM last night and 70 at midnight. Fasting blood sugar for him today 159 Blood pressure 1 5476 left arm by me Regular rhythm no murmur or gallop Incision looks good Decreased breath sounds few crackles on the left side Abdomen benign Impression Postop day #4 QUINTERO graft to LAD and vein graft OM branch with preop EF 35% Hypertension Diabetes Hypercholesteremia Obesity 107 kg Plan Crestor 10 mg daily Increase quinapril 20 mg twice daily Coreg 6.25 mg twice daily Aspirin 325 mg daily Accu-Chek sugars and adjust insulin Encourage ambulation BMP in a.m. Exam (Progress Note) - Constitutional Vitals: Period Temp Pulse Resp BP Sys/Triana Pulse Ox Last 24 Hr 98 F-99.2 F 65-73 16-20 149-175/68-85 95-100 Result/EKG - Labs CBC & BMP: 09/09/16 04:03 09/09/16 04:03 Labs: Laboratory Results - last 24 hr 09/09/16 09/09/16 09/09/16 11:47 15:54 20:36 POC Glucose 242 H 353 H 401 H 09/10/16 09/10/16 03:14 07:16 POC Glucose 70 L 159 H Quality Measures - VTE Contraindication to Pharmacological VTE Prophylaxis: High Risk of Bleeding Specialty Discharge - Follow Up or Referrals
[2016-09-10] MEDS: INSULIN REGULAR 100 UNIT/ML SUBCUT SCH ×4 (08:25→20:49)
[2016-09-10] MEDS: INSULIN GLARGINE 100 UNIT/ML SUBCUT SCH (08:46)
[2016-09-10] MEDS: INSULIN LISPRO 100 UNIT/ML SUBCUT SCH ×3 (08:47→16:57)
[2016-09-10] MEDS: ALLOPURINOL 300 MG TABLET PO SCH ×2 (08:48→20:52)
[2016-09-10] MEDS: FERROUS SULFATE 325 MG TABLET PO SCH (08:48)
[2016-09-10] MEDS: MULTIVITAMIN (BEROCCA) TABLET PO SCH (08:48)
[2016-09-10] MEDS: DOCUSATE SODIUM 100 MG CAPSULE PO SCH (08:48)
[2016-09-10] MEDS: ASPIRIN EC 325 MG TABLET PO SCH (08:48)
[2016-09-10] MEDS: CARVEDILOL 6.25 MG TABLET PO SCH ×2 (08:48→20:49)
[2016-09-10] MEDS: PANTOPRAZOLE 40 MG TABLET PO SCH (08:48)
[2016-09-10] MEDS: QUINAPRIL 20 MG TABLET PO SCH ×2 (08:48→20:49)
--- NOTE | 2016-09-10 10:42 | Hospitalist Progress Note ---
Assessment and Plan (1) CAD (coronary artery disease) Status: Chronic Assessment and plan: s/p CABG X2 Current Visit: Yes (2) T2DM (type 2 diabetes mellitus) Status: Chronic Assessment and plan: not controlled, continue Lantus at 40 units and mealtime of 10 units insulin Current Visit: Yes Hospitalist: Subjective Interval history: Blood sugars are still running too high during the day. They have cut down on the calories on his tray. Patient is not eating anything extra. Dr. Irving told him he could go home tomorrow. Patient looks great. Patient prefers staying on the Lantus. Patient's blood sugar got too low last night so we are cutting down on the sliding scale. Exam - Constitutional Vitals: Period Temp Pulse Resp BP Sys/Triana Pulse Ox Last 24 Hr 98 F-99.2 F 65-73 16-20 149-175/68-85 95-100 Exam: Heart Rate-[RRR] Lungs-[clear GI-[+bs soft, NT] Results - Labs CBC & BMP: 09/09/16 04:03 09/09/16 04:03 Lab Results: I have reviewed the past 24 hour labs Quality Measures - VTE Contraindication to Pharmacological VTE Prophylaxis: High Risk of Bleeding Specialty Discharge - Follow Up or Referrals
[2016-09-10] MEDS ORDERED: INSULIN REGULAR 100 UNIT/ML SUBCUT SCH (11:30)
[2016-09-10] MEDS: CHLORHEXIDINE 0.12% ORAL RINSE 60 ML BOTTLE SWISH/SPIT SCH ×2 (12:17→20:50)
[2016-09-10] MEDS: oxyCODONE/ACETAMINOPHEN 5-325 MG TABLET PO PRN (13:20)
[2016-09-10] MEDS: ROSUVASTATIN 10 MG TABLET PO SCH (20:49)
[2016-09-11 04:25] LABS: Basophils % 0.1 % (0.0-0.8); Eosinophils # 0.2 10*3/uL (0.0-0.87); Eosinophils % 1.6 % (0.00-10.9); Hematocrit 28.9 VOL% (42.0-52.0); Hemoglobin 9.7 GM/DL (14.0-18.0); Immature Granulocytes % 0.8 %; Lymphocytes # 1.3 10*3/uL (1.4-4.0); Lymphocytes % 10.3 % (21.2-54.2); Mean Corpuscular HGB Conc 33.6 GM/DL (32-36); Mean Corpuscular Hemoglobin 34 PG (27-34); Mean Platelet Volume 10.6 FL (9.6-12.0); Monocytes # 0.9 10*3/uL (0.11-0.8); Monocytes % 7.2 % (1.7-12.7); Neutrophils # 10.5 10*3/uL (1.4-7.4); Platelet Count 143 T/CUMM (130-400); Red Blood Count 2.89 MC/CUMM (3.8-5.5); White Blood Count 13.1 T/CUMM (4-12)
[2016-09-11 04:50] LABS: Osmolality,Calculated 281.4 MOS/KG (273-304)
[2016-09-11 04:58] LABS: Alanine Aminotransferase 31 U/L (16-61); Albumin 2.7 G/DL (3.4-5.0); Alkaline Phosphatase 50 U/L (45-117); Aspartate Amino Transferase 17 U/L (0-37); Bilirubin,Indirect 0.7 MG/DL (0.0-1.0); Blood Urea Nitrogen 20 MG/DL (7-18); Calcium 8.1 MG/DL (8.5-10.1); Glucose 93 MG/DL (74-106); Magnesium 2.2 MG/DL (1.8-2.4); Osmolality,Calculated 281.4 MOS/KG (273-304); Potassium 4.1 MMOL/L (3.5-5.1); Sodium 140 MMOL/L (136-145); Total Protein 5.3 G/DL (6.4-8.3)
[2016-09-11 05:01] LABS: Troponin I Only 0.425 NG/ML (0.00-0.045)
--- NOTE | 2016-09-11 06:14 | Cardiothoracic Progress Note ---
Cardiothoracic Subjective Interval history: Patient looks and feels okay. Vital signs are stable and he is breathing comfortably. Lab work is within normal limits. After discussion with patient and family we have decided to plan on discharge on Sunday. Exam (Progress Note) - Constitutional Vitals: Period Temp Pulse Resp BP Sys/Triana Pulse Ox Last 24 Hr 97.3 F-98.4 F 56-76 16-20 136-168/67-72 90-99 Result/EKG - Labs CBC & BMP: 09/11/16 03:40 09/11/16 03:40 Labs: Laboratory Results - last 24 hr 09/10/16 09/10/16 09/10/16 07:16 12:00 15:33 WBC RBC Hgb Hct MCV MCH MCHC RDW Plt Count MPV Neut % (Auto) Lymph % (Auto) [place] % (Auto) Eos % (Auto) Baso % (Auto) Neut # (Auto) Lymph # (Auto) [place] # (Auto) Eos # (Auto) Baso # (Auto) Immature Gran % Nucleated RBC % Immature Gran # Nucleated RBCs # Sodium Potassium Chloride Carbon Dioxide Anion Gap BUN Creatinine GFR Calculation BUN/Creatinine Ratio Glucose POC Glucose 159 H 257 H 259 H Calculated Osmolality Calcium Magnesium Total Bilirubin Direct Bilirubin Indirect Bilirubin AST ALT Alkaline Phosphatase Total Creatine Kinase CK-MB (CK-2) Troponin I Total Protein Albumin Globulin Albumin/Globulin Ratio 09/10/16 09/11/16 09/11/16 19:54 03:40 03:40 WBC 13.1 H RBC 2.89 L Hgb 9.7 L Hct 28.9 L MCV 100.0 MCH 34 MCHC 33.6 RDW 15.0 Plt Count 143 D MPV 10.6 Neut % (Auto) 80.0 H Lymph % (Auto) 10.3 L [place] % (Auto) 7.2 Eos % (Auto) 1.6 Baso % (Auto) 0.1 Neut # (Auto) 10.5 H Lymph # (Auto) 1.3 L [place] # (Auto) 0.9 H Eos # (Auto) 0.2 Baso # (Auto) 0.0 Immature Gran % 0.8 Nucleated RBC % 0.0 Immature Gran # 0.10 Nucleated RBCs # 0.00 Sodium 140 Potassium 4.1 Chloride 104 Carbon Dioxide 27 Anion Gap 13.1 BUN 20 H Creatinine 0.90 GFR Calculation 113 BUN/Creatinine Ratio 22.00 H Glucose 93 POC Glucose 244 H Calculated Osmolality 281.4 Calcium 8.1 L Magnesium 2.2 Total Bilirubin 0.90 Direct Bilirubin 0.20 Indirect Bilirubin 0.7 AST 17 ALT 31 Alkaline Phosphatase 50 Total Creatine Kinase 89 D CK-MB (CK-2) 1.9 Troponin I 0.425 H D Total Protein 5.3 L Albumin 2.7 L Globulin 2.6 Albumin/Globulin Ratio 1.0 L 09/11/16 03:40 WBC RBC Hgb Hct MCV MCH MCHC RDW Plt Count MPV Neut % (Auto) Lymph % (Auto) [place] % (Auto) Eos % (Auto) Baso % (Auto) Neut # (Auto) Lymph # (Auto) [place] # (Auto) Eos # (Auto) Baso # (Auto) Immature Gran % Nucleated RBC % Immature Gran # Nucleated RBCs # Sodium 140 Potassium 4.0 Chloride 103 Carbon Dioxide 29 Anion Gap 12.0 BUN 20 H Creatinine 0.90 GFR Calculation 113 BUN/Creatinine Ratio 22.00 H Glucose 93 POC Glucose Calculated Osmolality 281.4 Calcium 8.0 L Magnesium Total Bilirubin Direct Bilirubin Indirect Bilirubin AST ALT Alkaline Phosphatase Total Creatine Kinase CK-MB (CK-2) Troponin I Total Protein Albumin Globulin Albumin/Globulin Ratio Quality Measures - VTE Contraindication to Pharmacological VTE Prophylaxis: High Risk of Bleeding Specialty Discharge - Follow Up or Referrals
--- NOTE | 2016-09-11 07:25 | XRay Report ---
XR chest 2V Indication: Shortness of breath Comparison: 09 September 2016 Findings: The heart and mediastinum are stable in size and configuration. The lines and tubes are unchanged in position. The pulmonary vascularity is prominent but similar to previous exam. Small amounts of increased right upper lung density are present. No other lung infiltrates, effusions, pneumothorax or other abnormality is demonstrated. Impression: Small amounts of increased right upper lung density are present, may indicate pneumonia. PROCEDURE INTERPRETED AT [facility] DEPARTMENT OF RADIOLOGY Final Report Signed by: Dr. Nikhil Ferraro
[2016-09-11] MEDS: INSULIN REGULAR 100 UNIT/ML SUBCUT SCH ×4 (08:13→23:30)
[2016-09-11] MEDS: INSULIN LISPRO 100 UNIT/ML SUBCUT SCH ×4 (09:21→17:26)
[2016-09-11] MEDS: ALLOPURINOL 300 MG TABLET PO SCH ×2 (09:51→20:43)
[2016-09-11] MEDS: ASPIRIN EC 325 MG TABLET PO SCH (09:51)
[2016-09-11] MEDS: MULTIVITAMIN (BEROCCA) TABLET PO SCH (09:51)
[2016-09-11] MEDS: DOCUSATE SODIUM 100 MG CAPSULE PO SCH (09:51)
[2016-09-11] MEDS: FERROUS SULFATE 325 MG TABLET PO SCH (09:51)
[2016-09-11] MEDS: PANTOPRAZOLE 40 MG TABLET PO SCH (09:51)
[2016-09-11] MEDS: INSULIN GLARGINE 100 UNIT/ML SUBCUT SCH (09:51)
[2016-09-11] MEDS: CARVEDILOL 6.25 MG TABLET PO SCH ×2 (09:51→20:43)
[2016-09-11] MEDS: QUINAPRIL 20 MG TABLET PO SCH ×2 (09:51→20:43)
[2016-09-11] MEDS: CHLORHEXIDINE 0.12% ORAL RINSE 60 ML BOTTLE SWISH/SPIT SCH ×2 (09:52→20:44)
[2016-09-11] MEDS: oxyCODONE/ACETAMINOPHEN 5-325 MG TABLET PO PRN (10:34)
--- NOTE | 2016-09-11 13:50 | Cardiology Progress Note ---
Assessment and Plan (1) Status post aorto-coronary artery bypass graft Status: Acute Assessment and plan: Patient doing well clinically from his bypass operation. Hopefully he'll be going home tomorrow. Current Visit: Yes (2) CAD (coronary artery disease) Status: Acute Assessment and plan: He is now post coronary bypass surgery stable. Current Visit: Yes (3) HTN (hypertension) Status: Chronic Assessment and plan: His systolic pressure been up and down some. We will monitor this and may have to increase his medications prior to discharge. Current Visit: Yes (4) Hyperlipidemia Status: Chronic Assessment and plan: He'll need to continue his statin drugs. His rosuvastatin was increased from 5- 10 mg since admission. His lipid profile stable. Current Visit: Yes (5) T2DM (type 2 diabetes mellitus) Status: Chronic Assessment and plan: Glucose up and down but remains on sliding scale. Current Visit: Yes Cardiology - PN: Subj Interval history: The patient doing well post coronary bypass surgery. He states he has a good appetite is has minimal chest pain postoperatively. He denies any shortness of breath. He is had no palpitations syncope or near syncope. He has had all of his post surgical tubes and wires removed. Apparently his plan for him to be discharged tomorrow. His bypass included QUINTERO to LAD and vein graft to obtuse marginal branch. His ejection fraction is 35% but is had no overt heart failure symptomatology. His lab work today reveals CBC slight diminished H&H but stable. His chemistries are stable. Rhythm remains stable in sinus. Rates are okay. His blood pressures have been fairly stable with blood pressure systolics is been up a little bit. He has room to add ago pulse medication but I would avoid going up on chronic. His quinapril is probably at max dose. The addition of low-dose amlodipine would be appropriate. It appears that he is doing well probably be discharged tomorrow. Exam (Progress Note) - Constitutional Vitals: Period Temp Pulse Resp BP Sys/Triana Pulse Ox Last 24 Hr 97.3 F-98.7 F 56-76 16-20 108-195/53-86 90-97 Exam: General appearance: normal weight, no acute distress HEENT exam: normal inspection, atraumatic Neck exam: normal inspection no JVD. No carotid bruit. Trachea is in midline Respiratory/lungs exam: clear to auscultation bilaterally and posteriorly with good air movement. Cardiovascular exam: regular rate and rhythm, no murmur or gallop or rub. No precordial lift. Chest wall exam: Sternotomy wound looks good. GI/Abdominal exam: normal bowel sounds, soft, nontender, no abdominal bruits or pulsatile masses. Extremeties/musculoskeletal: His right leg graft donor site looks good and is oozing a little bit. He has a little bit of right ankle edema. Neurological exam: alert, oriented X3, no focal deficits Psychiatric exam: normal affect, normal mood. Cognitive function is grossly normal. Skin exam: normal color, warm Result/EKG - Labs CBC & BMP: 09/11/16 03:40 09/11/16 03:40 Lab Results: I have reviewed the past 24 hour labs Labs: Laboratory Results - last 24 hr 09/10/16 09/10/16 09/11/16 15:33 19:54 03:40 WBC 13.1 H RBC 2.89 L Hgb 9.7 L Hct 28.9 L MCV 100.0 MCH 34 MCHC 33.6 RDW 15.0 Plt Count 143 D MPV 10.6 Neut % (Auto) 80.0 H Lymph % (Auto) 10.3 L [place] % (Auto) 7.2 Eos % (Auto) 1.6 Baso % (Auto) 0.1 Neut # (Auto) 10.5 H Lymph # (Auto) 1.3 L [place] # (Auto) 0.9 H Eos # (Auto) 0.2 Baso # (Auto) 0.0 Immature Gran % 0.8 Nucleated RBC % 0.0 Immature Gran # 0.10 Nucleated RBCs # 0.00 Sodium Potassium Chloride Carbon Dioxide Anion Gap BUN Creatinine GFR Calculation BUN/Creatinine Ratio Glucose POC Glucose 259 H 244 H Calculated Osmolality Calcium Magnesium Total Bilirubin Direct Bilirubin Indirect Bilirubin AST ALT Alkaline Phosphatase Total Creatine Kinase CK-MB (CK-2) Troponin I Total Protein Albumin Globulin Albumin/Globulin Ratio 09/11/16 09/11/16 09/11/16 03:40 03:40 07:35 WBC RBC Hgb Hct MCV MCH MCHC RDW Plt Count MPV Neut % (Auto) Lymph % (Auto) [place] % (Auto) Eos % (Auto) Baso % (Auto) Neut # (Auto) Lymph # (Auto) [place] # (Auto) Eos # (Auto) Baso # (Auto) Immature Gran % Nucleated RBC % Immature Gran # Nucleated RBCs # Sodium 140 140 Potassium 4.1 4.0 Chloride 104 103 Carbon Dioxide 27 29 Anion Gap 13.1 12.0 BUN 20 H 20 H Creatinine 0.90 0.90 GFR Calculation 113 113 BUN/Creatinine Ratio 22.00 H 22.00 H Glucose 93 93 POC Glucose 123 H Calculated Osmolality 281.4 281.4 Calcium 8.1 L 8.0 L Magnesium 2.2 Total Bilirubin 0.90 Direct Bilirubin 0.20 Indirect Bilirubin 0.7 AST 17 ALT 31 Alkaline Phosphatase 50 Total Creatine Kinase 89 D CK-MB (CK-2) 1.9 Troponin I 0.425 H D Total Protein 5.3 L Albumin 2.7 L Globulin 2.6 Albumin/Globulin Ratio 1.0 L 09/11/16 11:31 WBC RBC Hgb Hct MCV MCH MCHC RDW Plt Count MPV Neut % (Auto) Lymph % (Auto) [place] % (Auto) Eos % (Auto) Baso % (Auto) Neut # (Auto) Lymph # (Auto) [place] # (Auto) Eos # (Auto) Baso # (Auto) Immature Gran % Nucleated RBC % Immature Gran # Nucleated RBCs # Sodium Potassium Chloride Carbon Dioxide Anion Gap BUN Creatinine GFR Calculation BUN/Creatinine Ratio Glucose POC Glucose 174 H Calculated Osmolality Calcium Magnesium Total Bilirubin Direct Bilirubin Indirect Bilirubin AST ALT Alkaline Phosphatase Total Creatine Kinase CK-MB (CK-2) Troponin I Total Protein Albumin Globulin Albumin/Globulin Ratio - Impressions Impressions: Telemetry with normal sinus rhythm. Quality Measures - VTE Contraindication to Pharmacological VTE Prophylaxis: High Risk of Bleeding Specialty Discharge - Follow Up or Referrals
--- NOTE | 2016-09-11 14:04 | Hospitalist Progress Note ---
Assessment and Plan (1) T2DM (type 2 diabetes mellitus) Status: Chronic Assessment and plan: 1)home on lantus and scheduled lispro as he is doing here. continue accuchecks and follow up with his PCP in [place]. Current Visit: Yes Hospitalist: Subjective Interval history: Mr Majano is doing well enough that DR Irving plans his discharge tomorrow. I have asked DM educators to see him today as we have changed his insulins while he has been here. His glucose control is better. Exam - Constitutional Vitals: Period Temp Pulse Resp BP Sys/Triana Pulse Ox Last 24 Hr 97.3 F-98.7 F 56-76 16-20 108-195/53-86 90-97 General appearance: no acute distress, over weight - Extremities Exam Extremities exam: Absent: edema - Neurological Exam Neurological exam: Present: alert, oriented X3 Results - Labs CBC & BMP: 09/11/16 03:40 09/11/16 03:40 Lab Results: I have reviewed the past 24 hour labs Quality Measures - VTE Contraindication to Pharmacological VTE Prophylaxis: High Risk of Bleeding Specialty Discharge - Follow Up or Referrals
[2016-09-11] MEDS: ROSUVASTATIN 10 MG TABLET PO SCH (20:44)
[2016-09-12] MEDS: oxyCODONE/ACETAMINOPHEN 5-325 MG TABLET PO PRN (01:52)
[2016-09-12 06:42] LABS: Basophils % 0.2 % (0.0-0.8); Eosinophils # 0.2 10*3/uL (0.0-0.87); Eosinophils % 1.4 % (0.00-10.9); Hemoglobin 9.5 GM/DL (14.0-18.0); Immature Granulocytes % 0.9 %; Immature Granulocytes Absolute 0.09 #; Lymphocytes # 1.4 10*3/uL (1.4-4.0); Lymphocytes % 13.2 % (21.2-54.2); Mean Corpuscular HGB Conc 33.9 GM/DL (32-36); Mean Corpuscular Hemoglobin 34 PG (27-34); Mean Corpuscular Volume 98.6 FL (87-102); Mean Platelet Volume 10.6 FL (9.6-12.0); Monocytes # 0.7 10*3/uL (0.11-0.8); Monocytes % 6.3 % (1.7-12.7); Neutrophils # 8.1 10*3/uL (1.4-7.4); Platelet Count 155 T/CUMM (130-400); Red Blood Count 2.84 MC/CUMM (3.8-5.5); Red Cell Distribution Width 15.3 % (9.3-17.3); White Blood Count 10.4 T/CUMM (4-12)
[2016-09-12 07:19] LABS: Alanine Aminotransferase 28 U/L (16-61); Albumin 2.4 G/DL (3.4-5.0); Alkaline Phosphatase 56 U/L (45-117); Aspartate Amino Transferase 16 U/L (0-37); Bilirubin,Indirect 0.4 MG/DL (0.0-1.0); Blood Urea Nitrogen 21 MG/DL (7-18); Calcium 7.7 MG/DL (8.5-10.1); Glucose 112 MG/DL (74-106); Magnesium 2.1 MG/DL (1.8-2.4); Osmolality,Calculated 280.5 MOS/KG (273-304); Potassium 4.3 MMOL/L (3.5-5.1); Sodium 139 MMOL/L (136-145)
--- NOTE | 2016-09-12 07:19 | EKG Report ---
Stationary ECG Study [facility] Test Date: 09/12/2016 7:19:26 AM Pat Name: REBEKAH SIN Department: Room: 271 Gender: M Distresser: LAURIE : 1940 Requested by: Carmine Lazaro Order Number: [id number] Reading MD: TRE HARP Intervals [place] Rate: 58 P: 97 WA: 204 QRS: -16 QRSD: 102 T: 78 QT: 436 QTc: 432 Interpretive Statements SINUS RHYTHM at 58 bpm NONSPECIFIC T-WAVE ABNORMALITY Electronically Signed On 09-15-16 16:42:58 CDT by TRE HARP [email or web address]
[2016-09-12 07:21] LABS: Troponin I Only 0.289 NG/ML (0.00-0.045)
--- NOTE | 2016-09-12 08:14 | Discharge Summary ---
Hospital Course - Hospital Course Hospital Course: History of present illness: Patient is a 76-year-old man who is been well until just a few days prior to admission when he began to experience substernal chest discomfort which became increasingly severe. He was admitted through the emergency room and was prepared for cardiac catheterization. This was performed and revealed critical left main coronary stenosis and the patient was advised to have bypass surgery. Past medical history is significant for history of hypertension hyperlipidemia and diabetes mellitus. Past medical history review of systems social history and family history are documented in his admission note. Hospital course: Patient was taken to surgery and two-vessel bypass grafting was performed graft to the circumflex marginal and anterior descending coronary arteries. Postoperative course was essentially uncomplicated and the patient was discharged home on the fifth postoperative day. He was instructed to return for follow-up in 1 month and discharge medications are listed below. Specialty Discharge - Follow Up or Referrals Follow up with: Carmine Irving MD [Physician] - 1 Month Discharge Plan - Discharge Data Condition at Discharge: Stable Discharge Diet: advance to your usual diet Activity: resume usual activities as tolerated Hygiene: no restrictions Weight Bearing at Discharge: full weight bearing Driving: not until seen by doctor - Discharge Medications New Carvedilol [Coreg] 6.25 mg PO BID #60 tablet Continue Aspirin [Ecotrin] 81 mg PO DAILY Quinapril [Accupril] 20 mg PO DAILY Insulin Aspart [NovoLOG] 20 unit SUBCUT BID Insulin NPH Human Isophane [NovoLIN N] 45 unit SUBCUT BID Rosuvastatin Calcium [Crestor] 5 mg PO BEDTIME Clopidogrel [Plavix] 75 mg PO DAILY Allopurinol 300 mg PO DAILY - Follow Up or Referral - Forms/Instructions Instructions: Heart Healthy Diet (GEN), Coronary Artery Bypass Graft, Diamond Sizer And Sorter (GEN), Sternal Precautions, Diamond Sizer And Sorter (GEN) Exam - Constitutional Vitals: Period Temp Pulse Resp BP Sys/Triana Pulse Ox Last 24 Hr 96.4 F-99.4 F 57-108 16-22 108-166/53-78 92-99 Discharge Results Procedures and tests throughout hospitalization: Pending Orders 09/04/16 Occult Blood, Stool Routine 09/05/16 04:40 Fresh Frozen Plasma IN AM Red Blood Cells Leuko Red IN AM Single Donor Platelets IN AM Type and Screen IN AM 09/12/16 04:00 XR chest 2V IN AM Labs on day of discharge: Labs from last 24 hours 09/12/16 09/12/16 09/12/16 07:48 04:17 04:17 WBC 10.4 RBC 2.84 L Hgb 9.5 L Hct 28.0 L MCV 98.6 MCH 34 MCHC 33.9 RDW 15.3 Plt Count 155 MPV 10.6 Neut % (Auto) 78.0 H Lymph % (Auto) 13.2 L [place] % (Auto) 6.3 Eos % (Auto) 1.4 Baso % (Auto) 0.2 Neut # (Auto) 8.1 H Lymph # (Auto) 1.4 [place] # (Auto) 0.7 Eos # (Auto) 0.2 Baso # (Auto) 0.0 Immature Gran % 0.9 Nucleated RBC % 0.0 Immature Gran # 0.09 Nucleated RBCs # 0.00 Sodium 139 Potassium 4.3 Chloride 103 Carbon Dioxide 30 Anion Gap 10.3 BUN 21 H Creatinine 1.10 GFR Calculation 90 BUN/Creatinine Ratio 19.00 Glucose 112 H POC Glucose 148 H Calculated Osmolality 280.5 Calcium 7.7 L Magnesium 2.1 Total Bilirubin 0.60 Direct Bilirubin 0.20 Indirect Bilirubin 0.4 AST 16 ALT 28 Alkaline Phosphatase 56 Total Creatine Kinase 63 D CK-MB (CK-2) 1.2 Troponin I 0.289 H D Total Protein 5.0 L Albumin 2.4 L Globulin 2.6 Albumin/Globulin Ratio 0.9 L 09/11/16 09/11/16 15:46 11:31 WBC RBC Hgb Hct MCV MCH MCHC RDW Plt Count MPV Neut % (Auto) Lymph % (Auto) [place] % (Auto) Eos % (Auto) Baso % (Auto) Neut # (Auto) Lymph # (Auto) [place] # (Auto) Eos # (Auto) Baso # (Auto) Immature Gran % Nucleated RBC % Immature Gran # Nucleated RBCs # Sodium Potassium Chloride Carbon Dioxide Anion Gap BUN Creatinine GFR Calculation BUN/Creatinine Ratio Glucose POC Glucose 136 H 174 H Calculated Osmolality Calcium Magnesium Total Bilirubin Direct Bilirubin Indirect Bilirubin AST ALT Alkaline Phosphatase Total Creatine Kinase CK-MB (CK-2) Troponin I Total Protein Albumin Globulin Albumin/Globulin Ratio DS: Provider Date of admission: 08/29/16 20:58 Primary care physician: . No PCP Attending physician on admission: Chris Gross MD Consults: 09/04/16 09:20 Consult to Dietitian [CONS] Routine Reason for Dietitian: Other Consult Comment: low salt, low cholesterol, diet 09/05/16 10:43 Consult to [facility], Educator [CONS] Routine Reason for Community Arts Worker: Other Consult Comment: for CABG 09/06/16 A1c 9.4 YIKES 09/07/16 06:09 Consult to Cardiac Rehabilitation [CONS] Routine Reason for Cardiac Rehabilitation: Other Consult Comment: Post CABG/heart surgery Consult to Diabetes [place], Educator [CONS] Routine Reason for Community Arts Worker: Diabetes Education Initial Insulin Education Consult Comment: insulin education Consult to Dietitian [CONS] Routine Reason for Dietitian: Dietary Consult Consult Comment: Cardiac, low salt, low cholesterol diet Consult to Physical Therapy [CONS] Routine Reason for Physical Therapy: Other Consult Comment: CV Rehab Consult to Physician [CONS] Routine Comment: Management of diabetes Consulting Provider: Consult to Specialist Group: Hospitalist 09/07/16 09:34 Consult to Diabetes [place], Educator [CONS] Routine Reason for Community Arts Worker: Re-education Consult Comment: Hg A1C 9.4 09/11/16 12:58 Consult to Diabetes [place], Educator [CONS] Routine Reason for Community Arts Worker: Diabetes Education Discharging clinician: Carmine Irving MD Expected date of discharge: 09/12/16
[2016-09-12 08:17] VITALS: BP 145/66
[2016-09-12] MEDS: INSULIN REGULAR 100 UNIT/ML SUBCUT SCH (08:57)
--- NOTE | 2016-09-12 08:57 | XRay Report ---
XR chest 2V Indication: Shortness of breath Comparison: 11 September 2016 Findings: The heart and mediastinum are stable in size and configuration cardiac surgery changes. Right internal jugular catheter is unchanged in position. The pulmonary vascularity is decreased with improving interstitial lung density. No other lung infiltrates, effusions, pneumothorax or other abnormality is demonstrated. Impression: Findings suggest improving cardiac decompensation. PROCEDURE INTERPRETED AT [facility] DEPARTMENT OF RADIOLOGY Final Report Signed by: Dr. Nikhil Ferraro
[2016-09-12] MEDS: FERROUS SULFATE 325 MG TABLET PO SCH (09:34)
[2016-09-12] MEDS: ASPIRIN EC 325 MG TABLET PO SCH (09:34)
[2016-09-12] MEDS: PANTOPRAZOLE 40 MG TABLET PO SCH (09:34)
[2016-09-12] MEDS: QUINAPRIL 20 MG TABLET PO SCH (09:34)
[2016-09-12] MEDS: MULTIVITAMIN (BEROCCA) TABLET PO SCH (09:34)
[2016-09-12] MEDS: INSULIN LISPRO 100 UNIT/ML SUBCUT SCH (09:34)
[2016-09-12] MEDS: INSULIN GLARGINE 100 UNIT/ML SUBCUT SCH (09:34)
[2016-09-12] MEDS: ALLOPURINOL 300 MG TABLET PO SCH (09:34)
[2016-09-12] MEDS: DOCUSATE SODIUM 100 MG CAPSULE PO SCH (09:34)
[2016-09-12] MEDS: CHLORHEXIDINE 0.12% ORAL RINSE 60 ML BOTTLE SWISH/SPIT SCH (09:35)
[2016-09-12] MEDS: CARVEDILOL 6.25 MG TABLET PO SCH (09:35)
== END 2016-09-12 12:05 | disposition home or self-care (01) | DRG 234 ==
LOC: EDUNIT# → N.ED 18:30 → N.EDINP 20:58 → N.TELEN 22:23 → N.CVR 09-06 10:52 → N.TELES 09-07 12:54
PROVIDERS: ADMIT Internal Medicine Cardiovascular Disease; ATTEND Internal Medicine Cardiovascular Disease
PROC: CLCCHCL (ICD-10-PCS; 2016-09-01 09:15)

== ENCOUNTER 2016-11-09 20:50 | Inpatient (IN) ==
[2016-11-09] MEDS ORDERED: cefTRIAXone 1,000 MG in SODIUM CHLORIDE 0.9% 100 ML IV STA (22:51)
[2016-11-09] MEDS ORDERED: SODIUM CHLORIDE 0.9% 500 ML IV STA (22:51)
[2016-11-09] MEDS ORDERED: ALBUTEROL/IPRATROPIUM 3 ML NEB RESP TX STA (22:51)
--- NOTE | 2016-11-09 22:53 | Emergency Department Note ---
Alissa Taylor Hilary, am scribing for, and in the presence of, Yared Conrad MD 22:47. Houston Taylor Charles R, MD, personally performed the services described in this documentation, ascribed by Anabella Maxwell in my presence, and it is both accurate and complete 252 . Arrival - Arrival Chief Complaint: Fever ED Nursing Triage Note: C/O Fever/not feeling well since 1200 today. EMS reports that fever was 102.8 upon their arrival and tylenol was given approx one hour group captain. Pt reports that he had CABG September 06 ([place]), had an injection in his eye yesterday. Denies any other c/o or illnesses. Pt reports that he saw Dr. Mix on Sunday- was placed on cafeteria monitor that was taken off yesterday- Pt will possibly have pacemaker placed. Mode of Arrival: Stretcher Limitations: No Limitations Source: Patient, Family (Grandson), RN Notes Reviewed Time Seen by Provider: 11/09/16 22:32 - History of Present Illness HPI Narrative: Pt is a 76 y/o white male brought into the ED with c/o not feeling well which onset around 1200 today. Pts grandson states that he has had a fever for the past 2 days and that today he was sitting in his chair and couldn't lift himself up. His grandson, who lives down the street, came to help him out and took him to the restroom and was trying to get him to his bedroom when his legs gave out and he became very weak. He confirms weakness, SOB, red faced, and hot to the touch so he called EMS. Pt had a CABG September [address] Mix on Sunday where he was placed on a 48 hr heart monitor. No other complaints or problems stated in the ED. Onset (ago): day(s) Consistency: constant Severity: moderate Severity scale (1-10): 4 Allergies/Adverse Reactions: Allergies Allergy/AdvReac Type Severity Reaction Status Date / Time Iodinated Contrast Media - Allergy HIVES Verified 08/31/16 18:43 Oral and [Iodinated Contrast Media - IV Dye] Home Medications: Home Medications Medication Instructions Recorded Confirmed Type Allopurinol 300 mg PO DAILY 05/11/15 11/09/16 History Aspirin [Ecotrin] 81 mg PO DAILY 05/11/15 11/09/16 History Clopidogrel [Plavix] 75 mg PO DAILY 05/11/15 11/09/16 History Insulin Aspart [NovoLOG] 20 unit SUBCUT BID 05/11/15 11/09/16 History Insulin NPH Human Isophane 45 unit SUBCUT BID 05/11/15 11/09/16 History [NovoLIN N] Quinapril [Accupril] 20 mg PO DAILY 05/11/15 11/09/16 History Rosuvastatin Calcium [Crestor] 5 mg PO BEDTIME 05/11/15 11/09/16 History Oxycodone HCl/Acetaminophen 1 tablet PO Q4HR PRN 09/12/16 11/09/16 History [Percocet 5-325 mg Tablet] Review of System - Review of System 12 point system: reviewed and no additional remarkable complaints except as stated - Review of System Constitutional: Present: fever, weakness Head/Ears/Nose/Throat: Absent: sore throat Respiratory: Present: respiratory distress (SOB) Cardiovascular: Absent: chest pain, syncope Skin: Present: other (red faced) Neurological: Present: weakness Medical,Surgical,& Family Hx - Medical History Cardio: History of: Hypertension, Cardiovascular Problems (cardiac stents x2 per Dr. Mix) Neurology: No history of: Seizures Endocrine: History of: Diabetes Mellitus (IDDM), Dyslipidemia Rheumatology: History of;: Rheumatoid Arthritis - Surgical History Abdominal Surgeries: Surgical HX of: Appendectomy, Colonoscopy - Family History Family History: Reports;: Family Stroke (grandmother) Comment Only: Family Heart Disease (aunt, and grandfather had a [place] X2) - Social History Smoking Status: Never smoker Frequency of Alcohol Use: None Type of Drug Use: None Exam Vital Signs: Vital Signs Temperature 100.7 F H 11/09/16 20:50 Pulse Rate 78 11/09/16 23:17 Respiratory Rate 24 11/09/16 23:17 Blood Pressure 118/65 11/09/16 20:50 O2 Sat by Pulse Oximetry 100 11/09/16 23:17 - General General appearance: alert, in no apparent distress - Head Head exam: Present: atraumatic, normocephalic - Eye Eye exam: Present: normal appearance, PERRL, EOMI - ENT ENT exam: Present: mucous membranes moist, TM's normal bilaterally. Absent: mucous membranes dry - Neck Neck exam: Present: full ROM, trachea midline. Absent: tenderness - Chest Chest inspection: Present: symmetric chest wall rise. Absent: tenderness - Respiratory Respiratory exam: Present: rhonchi (in the right lung) - Cardiovascular Cardiovascular exam: Present: regular rate, normal rhythm, normal heart sounds. Absent: murmur, rubs, gallop - Abdominal Exam Abdominal exam: Present: soft, normal bowel sounds. Absent: distention, tenderness - Extremities Exam Extremities exam: Present: full ROM, pedal edema (+1 pedal edema). Absent: tenderness - Back Exam Back exam: Present: full ROM. Absent: tenderness - Neurological Exam Neurological exam: Present: alert, oriented X3, CN II-XII intact. Absent: motor sensory deficit - Psychiatric Psychiatric exam: Present: normal affect, normal mood - Skin Skin exam: Present: warm (hot to the touch), intact, normal color, diaphoresis. Absent: rash Course - Consultations Consultation #1: Hospitalist will come see patient for possible admission Time: 01:30 Results - Labs CBC & BMP: 11/09/16 22:17 11/09/16 22:17 Lab Results: I have reviewed the patients labs Labs: Laboratory Tests 11/09/16 11/09/16 22:17 22:51 WBC 6.6 RBC 3.19 L Hgb 10.9 L Hct 31.9 L Neut % (Auto) 90.5 H Lymph % (Auto) 5.0 L Lymph # (Auto) 0.3 L Urine Color Yellow Urine Appearance Clear Urine Urobilinogen < 2.0 H Laboratory Tests 11/09/16 22:17 Sodium 133 L Potassium 4.5 Chloride 103 Carbon Dioxide 20 L BUN 30 H BUN/Creatinine Ratio 23.00 H Glucose 257 H Calcium 7.6 L C-Reactive Protein 2.53 H Total Protein 5.9 L Albumin 2.8 L Albumin/Globulin Ratio 0.9 L Microbiology 11/10/16 00:10 Throat Group A Streptococcus Rapid Screen - Final Negative for Grp A Strep Ag 11/10/16 00:10 Nasal Aspirate Influenza Types A,B Antigen (OPAL) - Final Negative for Influenza A Ag Negative for Influenza B Ag Laboratory Tests 11/09/16 22:17 ESR Westergren 97 H Disposition Clinical Impression: Generalized weakness, Fever, Exertional dyspnea, History of coronary artery disease Case discussed with: patient, patient's family Disposition: Still a Patient Condition: Stable Time of Disposition: 01:30
[2016-11-09 23:12] LABS: Basophils % 0.2 % (0.0-0.8); Eosinophils % 0.2 % (0.00-10.9); Hematocrit 31.9 VOL% (42.0-52.0); Hemoglobin 10.9 GM/DL (14.0-18.0); Immature Granulocytes % 0.8 %; Immature Granulocytes Absolute 0.05 #; Lymphocytes # 0.3 10*3/uL (1.4-4.0); Mean Corpuscular HGB Conc 34.2 GM/DL (32-36); Mean Corpuscular Hemoglobin 34 PG (27-34); Mean Platelet Volume 10.4 FL (9.6-12.0); Monocytes # 0.2 10*3/uL (0.11-0.8); Monocytes % 3.3 % (1.7-12.7); Neutrophils % 90.5 % (38.7-73.9); Platelet Count 165 T/CUMM (130-400); Red Blood Count 3.19 MC/CUMM (3.8-5.5); Red Cell Distribution Width 14.3 % (9.3-17.3); White Blood Count 6.6 T/CUMM (4-12)
[2016-11-09 23:21] LABS: Apearance,Urine CLEAR (Clear); Bilirubin,Urine Negative (Negative); Blood, Urine Negative (Negative); Glucose,Urine (UA) 50 mg/dL (Negative); Hyaline Casts,Urine 6 /LPF (0-3); Ketones,Urine Negative (Negative); Mucus,Urine Occasional /LPF (Occasional); Nitrite,Urine Negative (Negative); Protein,Urine 100 MG/DL; RBC,Urine 1 /HPF (0-4); Urine Color Yellow (Yellow); Urine Specific Gravity 1.018 (1.001-1.035); Urine Urobilinogen < 2.0 EU/DL (0.2-1.0); WBC,Urine <1 /HPF (0-6)
[2016-11-09] MEDS ORDERED: cefTRIAXone 1,000 MG VIAL ONE (23:42)
[2016-11-09] MEDS ORDERED: SODIUM CHLORIDE 0.9% 100 ML IV ONE (23:42)
[2016-11-09 23:53] LABS: Alanine Aminotransferase 36 U/L (16-61); Albumin 2.8 G/DL (3.4-5.0); Alkaline Phosphatase 76 U/L (45-117); Amylase 40 U/L (25-115); Aspartate Amino Transferase 33 U/L (0-37); Bilirubin,Total < 0.39 MG/DL (0.2-1.0); Blood Urea Nitrogen 30 MG/DL (7-18); Calcium 7.6 MG/DL (8.5-10.1); Glucose 257 MG/DL (74-106); Osmolality,Calculated 280.4 MOS/KG (273-304); Potassium 4.5 MMOL/L (3.5-5.1); Sodium 133 MMOL/L (136-145); Total Protein 5.9 G/DL (6.4-8.3)
[2016-11-10 00:18] LABS: Sedimentation Rate-Westergren 97 MM/HR (0-20)
[2016-11-10] MEDS ORDERED: oxyCODONE/ACETAMINOPHEN 5-325 MG TABLET PO PRN (02:11)
[2016-11-10] MEDS ORDERED: GLUCAGON 1 MG VIAL IM PRN (02:12)
[2016-11-10] MEDS ORDERED: DEXTROSE 50% 25 GM/50 ML VIAL IV PRN (02:12)
--- NOTE | 2016-11-10 02:18 | Hospitalist History & Physical ---
Assessment and Plan (1) Chronic cough Status: Acute Assessment and plan: This may be secondary to GERRY inhibitor. Patient is on quinapril. Will get a consultation with a section repairer to begin changing to an angiotensin receptor benji. Current Visit: Yes (2) Fever Status: Acute Assessment and plan: Noted elevated CRP and ESR patient Alicia bautista has a history of rheumatoid arthritis. I will still be concerned about possibility of an occult infection. Blood cultures have been sent a urine did not look inflamed chest x-ray does show possibility of blunting of the left costophrenic angle. Patient does have a cough. He will be put on azithromycin and ceftriaxone appropriate dosing. Current Visit: Yes (3) Generalized weakness Status: Acute Assessment and plan: I am not certain as to the cause of this. The patient was on statins out suspect that until discontinued however he is not. He does have anemia but not significantly so. Check B12 besides iron studies and also check folate. If folate and/or B12 are low check methylmalonate and homocystine. Current Visit: Yes History of Present Illness Chief complaint: Acute febrile illness 2 days/ generalized weakness/ malaise History of present illness: Mr. Majano is a 76 year old male brought into the ED with c/o not feeling well which onset around 1200 today. Pts grandson states that he has had a fever for the past 2 days and that today he was sitting in his chair and couldn't lift himself up. His grandson, who lives down the street, came to help him out and took him to the restroom and was trying to get him to his bedroom when his legs gave out and he became very weak. He confirms weakness, SOB, red faced, and hot to the touch so he called EMS. Pt had a CABG September [address] Mix on Sunday where he was placed on a 48 hr heart monitor. He complains of pain in the right anterior chest cage. He has a history of coronary artery bypass grafting in the last 2 month. He also has a history of rheumatoid arthritis with elevated C-reactive protein and ESR. White count is not elevated. 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 Whenever he gets these fevers at home is been having shaking chills 2. Complaint of the hip some discomfort in the right lower quadrant and the infraumbilical area Home Medications Medication Instructions Recorded Confirmed Type Allopurinol 300 mg PO DAILY 05/11/15 11/09/16 History Aspirin [Ecotrin] 81 mg PO DAILY 05/11/15 11/09/16 History Clopidogrel [Plavix] 75 mg PO DAILY 05/11/15 11/09/16 History Insulin Aspart [NovoLOG] 20 unit SUBCUT BID 05/11/15 11/09/16 History Insulin NPH Human Isophane 45 unit SUBCUT BID 05/11/15 11/09/16 History [NovoLIN N] Quinapril [Accupril] 20 mg PO DAILY 05/11/15 11/09/16 History Rosuvastatin Calcium [Crestor] 5 mg PO BEDTIME 05/11/15 11/09/16 History Oxycodone HCl/Acetaminophen 1 tablet PO Q4HR PRN 09/12/16 11/09/16 History [Percocet 5-325 mg Tablet] Allergies Allergy/AdvReac Type Severity Reaction Status Date / Time Iodinated Contrast Media - Allergy HIVES Verified 08/31/16 18:43 Oral and [Iodinated Contrast Media - IV Dye] Medical,Surgical,& Family Hx - Medical History Cardio: History of: Hypertension, Cardiovascular Problems (cardiac stents x2 per Dr. Mix) Neurology: No history of: Seizures Endocrine: History of: Diabetes Mellitus (IDDM), Dyslipidemia Rheumatology: History of;: Rheumatoid Arthritis - Surgical History Abdominal Surgeries: Surgical HX of: Appendectomy, Colonoscopy - Family History Family History: Reports;: Family Stroke (grandmother) Comment Only: Family Heart Disease (aunt, and grandfather had a CA X2) - Social History Smoking Status: Never smoker Frequency of Alcohol Use: None Type of Drug Use: None - Constitutional Constitutional: Present: anorexia, chills, fever(s), lethargy, malaise, weakness - EENT Eyes: Present: other (Unremarkable) Ears: Present: other (Unremarkable) - Cardiovascular Cardiovascular: Present: other (History of recent coronary bypass grafting) - Gastrointestinal Gastrointestinal: Present: other (Right lower quadrant and infraumbilical discomfort no diarrhea no nausea vomiting) - Genitourinary Genitourinary: Present: other (Unremarkable) - Musculoskeletal Musculoskeletal: Present: other (Generalized weakness would AFB supportive to walk. Patient's legs just give out family states) - Neurological Neurological: Present: other (Neuromuscular dysfunction with generalized weakness and transient flaccidity as stated by Family) - Psychiatric Psychiatric: Present: other (Unremarkable) - Endocrine Endocrine: Present: other (Diabetes mellitus) Exam - Constitutional Vitals: Period Temp Pulse Resp BP Sys/Triana Pulse Ox Last 24 Hr 100.7 F-100.7 F 78-93 18-24 118-118/65-65 97-100 General appearance: over weight - Head Head exam: Present: normocephalic, atraumatic - Eye Eye exam: Present: EOMI, other (Anicteric sclera no conjunctival petechia) Pupils: Present: SCOTT - ENT ENT exam: Present: normal oropharynx - Neck Neck exam: Present: normal inspection - Respiratory Respiratory exam: Present: clear to auscultation bilaterally, other (No bronchophony no wheezing no rales) - Cardiovascular Cardiovascular exam: Present: regular rate and rhythm, other (No gallops) - GI/Abdominal GI/Abdominal exam: Present: normal bowel sounds, soft, other (Discomfort on palpation the right lower quadrant is infraumbilical area) - Extremities Exam Extremities exam: Present: other (Generalized weakness no focality) - Neurological Exam Neurological exam: Present: alert, oriented X3, CN II-XII intact - Psychiatric Psychiatric exam: Present: normal affect, other (Moderately subdued affect patient with general malaise) - Skin Skin exam: Present: warm, dry, other (Moderate pallor) Results - Labs CBC & BMP: 11/09/16 22:17 11/09/16 22:17 Lab Results: I have reviewed the past 24 hour labs
[2016-11-10 02:58] LABS: Troponin I Only 0.042 NG/ML (0.00-0.045)
[2016-11-10 03:15] LABS: % Iron Saturation 12.3 % (18-50); Ferritin 249.7 ng/ml (26-388); Iron 31 UG/DL (65-175); Iron Binding Capacity 252 UG/DL (250-450); Rheumatoid Factor < 15 IU/ML (<15)
[2016-11-10] MEDS: AZITHROMYCIN INJ 500 MG in SODIUM CHLORIDE 0.9% 250 ML IV SCH (04:38)
--- NOTE | 2016-11-10 06:51 | XRay Report ---
Exam: XR chest 1V portable Date: 11/09/2016 10:52 PM Indication: Shortness of breath fever Comparison: 09/12/2016 Technical: AP portable Findings: Cardiomegaly present with previous sternotomy. Oxygen tubing external cardiac leads are present. A few reticular nodular densities are present. Old right upper lateral rib fractures are present. Thoracic spine is poorly visualized. Previous examination revealed a compression in the lower thoracic spine no obvious effusions pneumothorax or consolidation present. Impression: 1. Cardiomegaly with previous sternotomy without acute infiltrates on today's exam are congestive failure 2. Granuloma change 3. Old rib fractures on the right PROCEDURE INTERPRETED AT [facility] DEPARTMENT OF RADIOLOGY Final Report Signed by: Dr. Brandon Chisholm
[2016-11-10] MEDS: CLOPIDOGREL 75 MG TABLET PO SCH (09:05)
[2016-11-10] MEDS: QUINAPRIL 20 MG TABLET PO SCH (09:05)
[2016-11-10] MEDS: ASPIRIN EC 81 MG TABLET PO SCH (09:05)
[2016-11-10] MEDS: ALLOPURINOL 300 MG TABLET PO SCH (09:05)
[2016-11-10] MEDS: INSULIN NPH 100 UNIT/ML SUBCUT SCH ×2 (09:06→21:59)
[2016-11-10] MEDS: INSULIN LISPRO 100 UNIT/ML SUBCUT SCH ×2 (09:07→21:59)
--- NOTE | 2016-11-10 12:05 | Hospitalist Progress Note ---
Assessment and Plan - Time spent with patient Time spent with patient: Greater than 30 minutes (1) Pneumonia Status: Acute Assessment and plan: Patient is doing much better overall. Continue current management. Chest x- ray appears to show a left base infiltrate. Current Visit: Yes (2) CAD (coronary artery disease) Status: Acute Current Visit: No (3) Diastolic CHF, chronic Status: Acute Assessment and plan: I do not feel he has an exacerbation of CHF. Continue treatment. Current Visit: Yes (4) Generalized weakness Status: Acute Assessment and plan: Will get PT/OT/SW to evaluate. Current Visit: Yes (5) Anemia Status: Acute Assessment and plan: Stable, likely secondary to chronic disease. Current Visit: No (6) HTN (hypertension) Status: Chronic Assessment and plan: Continue current management. Current Visit: No (7) Hyperlipidemia Status: Chronic Assessment and plan: Continue statin. Current Visit: No (8) T2DM (type 2 diabetes mellitus) Status: Chronic Assessment and plan: Continue current management. Current Visit: No Hospitalist: Subjective Interval history: Patient states he feels much better than from admission. No complaints overnight events currently. Denies any chest pain Exam - Constitutional Vitals: Period Temp Pulse Resp BP Sys/Triana Pulse Ox Last 24 Hr 99.7 F-100.7 F 72-93 18-24 118-163/51-87 93-100 General appearance: no acute distress - Head Head exam: Present: normocephalic, atraumatic - Eye Eye exam: Present: EOMI Pupils: Present: SCOTT - ENT ENT exam: Present: normal exam - Neck Neck exam: Present: normal inspection - Respiratory Respiratory exam: Present: clear to auscultation bilaterally. Absent: rhonchi, wheezes - Cardiovascular Cardiovascular exam: Present: regular rate and rhythm. Absent: gallop, rubs, systolic murmur - GI/Abdominal GI/Abdominal exam: Present: normal bowel sounds, soft. Absent: distended, firm , guarding, tenderness, rebound - Extremities Exam Extremities exam: Present: normal inspection. Absent: calf tenderness, edema Results - Labs CBC & BMP: 11/09/16 22:17 11/09/16 22:17 Lab Results: I have reviewed the past 24 hour labs
[2016-11-10] MEDS ORDERED: ACETAMINOPHEN 325 MG TABLET PO PRN (15:07)
[2016-11-10] MEDS ORDERED: ACETAMINOPHEN 325 MG TABLET ONE (15:10)
[2016-11-10] MEDS: cefTRIAXone 2,000 MG in SODIUM CHLORIDE 0.9% 100 ML IV SCH (21:56)
[2016-11-10] MEDS: ROSUVASTATIN 10 MG TABLET PO SCH (21:59)
[2016-11-11] MEDS: AZITHROMYCIN INJ 500 MG in SODIUM CHLORIDE 0.9% 250 ML IV SCH (03:55)
[2016-11-11 07:13] LABS: Calcium 7.8 MG/DL (8.5-10.1); Osmolality,Calculated 277.8 MOS/KG (273-304)
[2016-11-11] MEDS: INSULIN LISPRO 100 UNIT/ML SUBCUT SCH ×2 (09:07→21:42)
[2016-11-11] MEDS: ASPIRIN EC 81 MG TABLET PO SCH (09:07)
[2016-11-11] MEDS: QUINAPRIL 20 MG TABLET PO SCH (09:07)
[2016-11-11] MEDS: ALLOPURINOL 300 MG TABLET PO SCH (09:09)
[2016-11-11] MEDS: CLOPIDOGREL 75 MG TABLET PO SCH (09:09)
[2016-11-11] MEDS: INSULIN NPH 100 UNIT/ML SUBCUT SCH ×2 (09:14→21:42)
--- NOTE | 2016-11-11 10:13 | Hospitalist Progress Note ---
Assessment and Plan - Time spent with patient Time spent with patient: Greater than 30 minutes (1) Positive blood culture Status: Acute Assessment and plan: Start vancomycin. I do suspect this is most likely contamination. Current Visit: Yes (2) Pneumonia Status: Acute Assessment and plan: Patient is doing much better overall. Continue current management. Chest x- ray appears to show a left base infiltrate. Current Visit: Yes (3) CAD (coronary artery disease) Status: Acute Current Visit: No (4) Diastolic CHF, chronic Status: Acute Assessment and plan: I do not feel he has an exacerbation of CHF. Continue treatment. Current Visit: Yes (5) Generalized weakness Status: Acute Assessment and plan: Will get PT/OT/SW to evaluate. Current Visit: Yes (6) Anemia Status: Acute Assessment and plan: Stable, likely secondary to chronic disease. Current Visit: No (7) HTN (hypertension) Status: Chronic Assessment and plan: Continue current management. Current Visit: No (8) Hyperlipidemia Status: Chronic Assessment and plan: Continue statin. Current Visit: No (9) T2DM (type 2 diabetes mellitus) Status: Chronic Assessment and plan: Continue current management. Current Visit: No Hospitalist: Subjective Interval history: Blood culture returned positive this morning patient was initiated on vancomycin. Otherwise he has no complaints. No overnight events. Exam - Constitutional Vitals: Period Temp Pulse Resp BP Sys/Triana Pulse Ox Last 24 Hr 98.6 F-102.2 F 76-93 16-20 118-155/56-83 93-100 General appearance: normal weight, no acute distress - Head Head exam: Present: normocephalic, atraumatic - Eye Eye exam: Present: EOMI Pupils: Present: SCOTT - ENT ENT exam: Present: normal exam - Neck Neck exam: Present: normal inspection - Respiratory Respiratory exam: Present: clear to auscultation bilaterally. Absent: rhonchi, wheezes - Cardiovascular Cardiovascular exam: Present: regular rate and rhythm. Absent: gallop, rubs, systolic murmur - GI/Abdominal GI/Abdominal exam: Present: normal bowel sounds, soft. Absent: distended, firm , guarding, tenderness, rebound - Extremities Exam Extremities exam: Present: normal inspection. Absent: calf tenderness, edema Results - Labs CBC & BMP: 11/09/16 22:17 11/11/16 05:39 Lab Results: I have reviewed the past 24 hour labs
[2016-11-11] MEDS: VANCOMYCIN INJ 1,500 MG in SODIUM CHLORIDE 0.9% 500 ML IV SCH ×2 (10:27→21:57)
[2016-11-11] MEDS: cefTRIAXone 2,000 MG in SODIUM CHLORIDE 0.9% 100 ML IV SCH (21:21)
[2016-11-11] MEDS: ROSUVASTATIN 10 MG TABLET PO SCH (21:21)
[2016-11-12] MEDS: AZITHROMYCIN INJ 500 MG in SODIUM CHLORIDE 0.9% 250 ML IV SCH (04:06)
--- NOTE | 2016-11-12 07:16 | EKG Report ---
Stationary ECG Study [facility] ER Test Date: 11/09/2016 9:00:39 PM Pat Name: REBEKAH SIN Department: Room: 328 Gender: M Window Caser: LENA : 1940 Requested by: Yared Adams Order Number: [id number] Reading MD: SABINO COLE Intervals [place] Rate: 94 P: 65 AL: 234 QRS: -8 QRSD: 99 T: 129 QT: 382 QTc: 434 Interpretive Statements SINUS RHYTHM WITH PROLONGED AL INTERVAL MODERATE T-WAVE ABNORMALITY, CONSIDER LATERAL ISCHEMIA Electronically Signed On 11-12-16 07:52:34 CDT by SABINO COLE [email or web address]
[2016-11-12] MEDS: INSULIN LISPRO 100 UNIT/ML SUBCUT SCH ×2 (09:19→21:45)
[2016-11-12] MEDS: INSULIN NPH 100 UNIT/ML SUBCUT SCH ×2 (09:19→21:45)
[2016-11-12] MEDS: ALLOPURINOL 300 MG TABLET PO SCH (09:20)
[2016-11-12] MEDS: ASPIRIN EC 81 MG TABLET PO SCH (09:20)
[2016-11-12] MEDS: QUINAPRIL 20 MG TABLET PO SCH (09:20)
[2016-11-12] MEDS: CLOPIDOGREL 75 MG TABLET PO SCH (09:20)
[2016-11-12] MEDS: VANCOMYCIN INJ 1,500 MG in SODIUM CHLORIDE 0.9% 500 ML IV SCH ×2 (09:21→23:33)
--- NOTE | 2016-11-12 10:22 | Hospitalist Progress Note ---
Assessment and Plan - Time spent with patient Time spent with patient: Greater than 30 minutes (1) Positive blood culture Status: Acute Assessment and plan: Start vancomycin. I do suspect this is most likely contamination. Current Visit: Yes (2) Pneumonia Status: Acute Assessment and plan: Patient is doing much better overall. Continue current management. Chest x- ray appears to show a left base infiltrate. Current Visit: Yes (3) CAD (coronary artery disease) Status: Acute Current Visit: No (4) Diastolic CHF, chronic Status: Acute Assessment and plan: I do not feel he has an exacerbation of CHF. Continue treatment. Current Visit: Yes (5) Generalized weakness Status: Acute Assessment and plan: Resolved. Current Visit: Yes (6) Anemia Status: Acute Assessment and plan: Stable, likely secondary to chronic disease. Current Visit: No (7) HTN (hypertension) Status: Chronic Assessment and plan: Continue current management. Current Visit: No (8) Hyperlipidemia Status: Chronic Assessment and plan: Continue statin. Current Visit: No (9) T2DM (type 2 diabetes mellitus) Status: Chronic Assessment and plan: Continue current management. Current Visit: No Hospitalist: Subjective Interval history: Patient reports feeling better overall he no longer complains of weakness. He states that baseline. No overnight fevers. Exam - Constitutional Vitals: Period Temp Pulse Resp BP Sys/Triana Pulse Ox Last 24 Hr 97.2 F-100.1 F 71-88 14-20 100-151/56-77 95-98 General appearance: no acute distress - Head Head exam: Present: normocephalic, atraumatic - Eye Eye exam: Present: EOMI Pupils: Present: SCOTT - ENT ENT exam: Present: normal exam - Neck Neck exam: Present: normal inspection - Respiratory Respiratory exam: Present: clear to auscultation bilaterally. Absent: rhonchi, wheezes - Cardiovascular Cardiovascular exam: Present: regular rate and rhythm. Absent: gallop, rubs, systolic murmur - GI/Abdominal GI/Abdominal exam: Present: normal bowel sounds, soft. Absent: distended, firm , guarding, tenderness, rebound - Extremities Exam Extremities exam: Present: normal inspection. Absent: calf tenderness, edema Results - Labs CBC & BMP: 11/09/16 22:17 11/11/16 05:39 Lab Results: I have reviewed the past 24 hour labs
[2016-11-12] MEDS: cefTRIAXone 2,000 MG in SODIUM CHLORIDE 0.9% 100 ML IV SCH (21:44)
[2016-11-12] MEDS: ROSUVASTATIN 10 MG TABLET PO SCH (21:45)
[2016-11-13] MEDS: AZITHROMYCIN INJ 500 MG in SODIUM CHLORIDE 0.9% 250 ML IV SCH (04:57)
[2016-11-13] MEDS: VANCOMYCIN INJ 1,500 MG in SODIUM CHLORIDE 0.9% 500 ML IV SCH (09:47)
[2016-11-13] MEDS: ALLOPURINOL 300 MG TABLET PO SCH (09:50)
[2016-11-13] MEDS: CLOPIDOGREL 75 MG TABLET PO SCH (09:50)
[2016-11-13] MEDS: ASPIRIN EC 81 MG TABLET PO SCH (09:50)
[2016-11-13] MEDS: QUINAPRIL 20 MG TABLET PO SCH (09:50)
[2016-11-13] MEDS: INSULIN NPH 100 UNIT/ML SUBCUT SCH (09:55)
[2016-11-13] MEDS: INSULIN LISPRO 100 UNIT/ML SUBCUT SCH (09:55)
[2016-11-13 11:49] VITALS: BP 145/71
--- NOTE | 2016-11-13 11:58 | Hospitalist Progress Note ---
Assessment and Plan - Time spent with patient Time spent with patient: Greater than 30 minutes (1) Positive blood culture Status: Acute Assessment and plan: Start vancomycin. I do suspect this is most likely contamination. Awaiting cultures. Current Visit: Yes (2) Pneumonia Status: Acute Assessment and plan: Patient is doing much better overall. Continue current management. Chest x- ray appears to show a left base infiltrate. Current Visit: Yes (3) CAD (coronary artery disease) Status: Acute Current Visit: No (4) Diastolic CHF, chronic Status: Acute Assessment and plan: I do not feel he has an exacerbation of CHF. Continue treatment. Current Visit: Yes (5) Generalized weakness Status: Acute Assessment and plan: Resolved. Current Visit: Yes (6) Anemia Status: Acute Assessment and plan: Stable, likely secondary to chronic disease. Current Visit: No (7) HTN (hypertension) Status: Chronic Assessment and plan: Continue current management. Current Visit: No (8) Hyperlipidemia Status: Chronic Assessment and plan: Continue statin. Current Visit: No (9) T2DM (type 2 diabetes mellitus) Status: Chronic Assessment and plan: Continue current management. Current Visit: No Hospitalist: Subjective Interval history: Patient is doing feels much better. He is currently working with physical therapy. Exam - Constitutional Vitals: Period Temp Pulse Resp BP Sys/Triana Pulse Ox Last 24 Hr 98.2 F-98.8 F 64-80 18-20 125-145/65-73 97-98 General appearance: no acute distress - Head Head exam: Present: normocephalic, atraumatic - Eye Eye exam: Present: EOMI Pupils: Present: SCOTT - ENT ENT exam: Present: normal exam - Neck Neck exam: Present: normal inspection - Respiratory Respiratory exam: Present: clear to auscultation bilaterally. Absent: rhonchi, wheezes - Cardiovascular Cardiovascular exam: Present: regular rate and rhythm. Absent: gallop, rubs, systolic murmur - GI/Abdominal GI/Abdominal exam: Present: normal bowel sounds, soft. Absent: distended, firm , guarding, tenderness, rebound - Extremities Exam Extremities exam: Present: normal inspection. Absent: calf tenderness, edema Results - Labs CBC & BMP: 11/09/16 22:17 11/11/16 05:39 Lab Results: I have reviewed the past 24 hour labs
--- NOTE | 2016-11-13 14:25 | Discharge Summary ---
Hospital Course - Hospital Course Hospital Course: Mr. Majano was admitted for evaluation and management of weakness, fever and cough concerning for pneumonia. Chest x-ray revealed possible left lung base pneumonia. Is initiated on azithromycin and ceftriaxone. Patient's fever resolved and his weakness improved. He was seen by physical therapy during his hospital stay. Patient's blood culture was 1 out of 2 bottles positive. This returned Staphylococcus capitis. During this time he was managed on vancomycin until it was discovered this was likely a contamination. By discharge he had met maximum benefit of hospitalization. I spent 37 minutes coordinating this discharge. - Time spent with patient Time with patient DS: Greater than 30 minutes Diagnosis - Discharge Diagnosis (1) Positive blood culture Status: Acute (2) Pneumonia Status: Acute (3) CAD (coronary artery disease) Status: Acute (4) Diastolic CHF, chronic Status: Acute (5) Generalized weakness Status: Acute (6) Anemia Status: Acute (7) HTN (hypertension) Status: Chronic (8) Hyperlipidemia Status: Chronic (9) T2DM (type 2 diabetes mellitus) Status: Chronic Discharge Plan - Discharge Data Disposition: Disch To Home/Self Care Condition at Discharge: Stable Discharge Diet: advance to your usual diet Activity: resume usual activities as tolerated - Discharge Medications New Levofloxacin Tab [Levaquin Tab] 500 mg PO DAILY #5 tablet Continue Aspirin [Ecotrin] 81 mg PO DAILY Quinapril [Accupril] 20 mg PO DAILY Insulin Aspart [NovoLOG] 20 unit SUBCUT BID Insulin NPH Human Isophane [NovoLIN N] 45 unit SUBCUT BID Rosuvastatin Calcium [Crestor] 5 mg PO BEDTIME Clopidogrel [Plavix] 75 mg PO DAILY Allopurinol 300 mg PO DAILY Oxycodone HCl/Acetaminophen [Percocet 5-325 mg Tablet] 1 tablet PO Q4HR PRN PRN Reason: Pain - Follow Up or Referral - Forms/Instructions Exam - Constitutional Vitals: Period Temp Pulse Resp BP Sys/Triana Pulse Ox Last 24 Hr 98.2 F-98.8 F 64-80 18-20 125-145/65-73 97-98 General appearance: normal weight, no acute distress - Head Head exam: Present: normal inspection, normocephalic, atraumatic - Eye Eye exam: Present: EOMI Pupils: Present: SCOTT - ENT ENT exam: Present: normal exam - Neck Neck exam: Present: normal inspection - Respiratory Respiratory exam: Present: clear to auscultation bilaterally. Absent: accessory muscle use, prolonged expiratory phase, wheezes - Cardiovascular Cardiovascular exam: Present: regular rate and rhythm. Absent: bradycardia, irregular rhythm, systolic murmur - GI/Abdominal GI/Abdominal exam: Present: normal bowel sounds. Absent: ascites, hypoactive bowel sounds, tenderness - Extremities Exam Extremities exam: Present: normal inspection Discharge Results Procedures and tests throughout hospitalization: Pending Orders 11/09/16 23:00 Blood Culture Stat Labs on day of discharge: Labs from last 24 hours 11/13/16 11/13/16 11/12/16 11:10 09:46 21:40 POC Glucose 154 H 143 H Vancomycin Trough 18.0 11/12/16 11/12/16 11/12/16 20:36 17:44 15:43 POC Glucose 198 H 198 H 127 H Vancomycin Trough Preliminary micro results at discharge 11/09/16 23:00 Blood Culture - Preliminary Blood No growth at 3 days DS: Provider Date of admission: 11/10/16 02:04 Primary care physician: . No PCP Attending physician on admission: Luis Carlos Fair MD Consults: 11/10/16 12:36 Consult to Case Mgmt/Social Srvs [CONS] Routine Reason for Case Mgmt/Social Srvs: Discharge Planning Consult to Occupational Therapy [CONS] Routine Reason for Occupational Therapy: Evaluate and Treat Consult to Physical Therapy [CONS] Routine Reason for Physical Therapy: Evaluate and Treat 11/11/16 08:39 Consult to Pharmacy [CONS] Routine Reason for Pharmacy Consult: Dose/Manage Vancomycin 11/13/16 12:04 Consult to Case Mgmt/Social Srvs [CONS] Routine Reason for Case Mgmt/Social Srvs: Equipment Consult Comment: walker for home 11/13/16 13:35 Consult to Physical Therapy [CONS] Routine Reason for Physical Therapy: Other Consult Comment: Deliver Standard Walker to Pt's rm 328 f/Pt to take home assist w/walking. Discharging clinician: Gia Pollock MD Expected date of discharge: 11/13/16
== END 2016-11-13 15:11 | disposition home or self-care (01) | DRG 194 ==
LOC: EDUNIT# → EDBD → N.ED 20:50 → N.EDINP 11-10 02:04 → SUATTDRO 11-10 02:04 → N.3E 11-10 02:36
PROVIDERS: ADMIT Internal Medicine Infectious Disease; ATTEND Internal Medicine

== ENCOUNTER 2020-05-04 10:57 | Observation (INO) ==
[2020-05-04 13:11] LABS: Bilirubin,Urine Negative (Negative); Blood, Urine Negative (Negative); Glucose,Urine (UA) Negative (Negative); Hyaline Casts,Urine 4 /LPF (0-3); Ketones,Urine Negative (Negative); Mucus,Urine Occasional /LPF (Occasional); Nitrite,Urine Negative (Negative); Protein,Urine 100 MG/DL; RBC,Urine 1 /HPF (0-4); Urine Appearance CLEAR (Clear); Urine Color Yellow (Yellow); Urine Specific Gravity 1.017 (1.001-1.035); Urine Urobilinogen < 2.0 EU/DL (0.2-1.0)
[2020-05-04] MEDS ORDERED: ONDANSETRON 4 MG/2 ML VIAL IV PRN (15:18)
[2020-05-04] MEDS ORDERED: ZALEPLON 5 MG CAPSULE PO PRN (15:18)
[2020-05-04] MEDS ORDERED: hydrALAZINE 20 MG/1 ML VIAL IV PRN (15:18)
[2020-05-04] MEDS ORDERED: GLUCAGON 1 MG VIAL IM PRN (15:18)
[2020-05-04] MEDS ORDERED: DEXTROSE 50% 25 GM/50 ML VIAL IV PRN (15:18)
[2020-05-04 18:07] LABS: Basophils % 0.2 % (0.0-0.8); Eosinophils # 0.1 10*3/uL (0.0-0.87); Eosinophils % 1.7 % (0.00-10.9); Hematocrit 33.2 VOL% (42.0-52.0); Hemoglobin 11.3 GM/DL (14.0-18.0); Immature Granulocytes % 0.5 %; Immature Granulocytes Absolute 0.04 #; Lymphocytes # 0.7 10*3/uL (1.4-4.0); Lymphocytes % 7.8 % (21.2-54.2); Mean Corpuscular Volume 105.7 FL (87-102); Mean Platelet Volume 10.1 FL (9.6-12.0); Monocytes % 7.4 % (1.7-12.7); Neutrophils % 82.4 % (38.7-73.9); Platelet Count 168 T/CUMM (130-400); Red Blood Count 3.14 MC/CUMM (3.8-5.5); White Blood Count 8.4 T/CUMM (4-12)
[2020-05-04] MEDS: INSULIN LISPRO 100 UNIT/ML SUBCUT SCH ×2 (18:17→21:40)
[2020-05-04 18:37] LABS: Calcium 8.7 MG/DL (8.5-10.1); Osmolality,Calculated 278.5 MOS/KG (273-304)
[2020-05-04 19:04] LABS: Risk Ratio 2.3; Thyroid Stimulating Hormone 2.73 uIU/ml (0.358-3.74); VLDL CHOLESTEROL 19.6 MG/DL
[2020-05-04] MEDS: ROSUVASTATIN 10 MG TABLET PO SCH (21:15)
[2020-05-04] MEDS: ENOXAPARIN 40 MG/0.4 ML SYRINGE SUBCUT SCH (21:15)
[2020-05-04] MEDS: carvediloL 6.25 MG TABLET PO SCH (21:15)
[2020-05-05 05:54] LABS: Basophils % 0.4 % (0.0-0.8); Eosinophils # 0.2 10*3/uL (0.0-0.87); Hematocrit 31.4 VOL% (42.0-52.0); Hemoglobin 10.7 GM/DL (14.0-18.0); Immature Granulocytes % 0.5 %; Immature Granulocytes Absolute 0.05 #; Lymphocytes # 0.9 10*3/uL (1.4-4.0); Lymphocytes % 9.9 % (21.2-54.2); Mean Corpuscular HGB Conc 34.1 GM/DL (32-36); Mean Corpuscular Volume 104.3 FL (87-102); Mean Platelet Volume 9.8 FL (9.6-12.0); Monocytes % 8.3 % (1.7-12.7); Neutrophils % 78.9 % (38.7-73.9); Platelet Count 169 T/CUMM (130-400); Red Blood Count 3.01 MC/CUMM (3.8-5.5); Red Cell Distribution Width 12.8 % (9.3-17.3); White Blood Count 9.2 T/CUMM (4-12)
[2020-05-05 06:18] LABS: Calcium 8.9 MG/DL (8.5-10.1)
[2020-05-05] MEDS: INSULIN LISPRO 100 UNIT/ML SUBCUT SCH ×4 (07:52→21:42)
[2020-05-05] MEDS ORDERED: ASPIRIN EC 81 MG TABLET PO SCH (09:00)
[2020-05-05] MEDS ORDERED: VALSARTAN 40 MG PO SCH (09:00)
[2020-05-05] MEDS: PANTOPRAZOLE 40 MG TABLET PO SCH (09:20)
[2020-05-05] MEDS: amLODIPine 5 MG TABLET PO SCH (09:20)
[2020-05-05] MEDS: allopurinoL 300 MG TABLET PO SCH (09:21)
[2020-05-05] MEDS: carvediloL 6.25 MG TABLET PO SCH ×2 (09:21→21:39)
[2020-05-05] MEDS: ENOXAPARIN 40 MG/0.4 ML SYRINGE SUBCUT SCH (21:38)
[2020-05-05] MEDS: ROSUVASTATIN 10 MG TABLET PO SCH (21:39)
[2020-05-06] MEDS: INSULIN LISPRO 100 UNIT/ML SUBCUT SCH ×2 (07:24→11:22)
[2020-05-06] MEDS: amLODIPine 5 MG TABLET PO SCH (08:57)
[2020-05-06] MEDS: PANTOPRAZOLE 40 MG TABLET PO SCH (08:57)
[2020-05-06] MEDS: carvediloL 6.25 MG TABLET PO SCH (08:57)
[2020-05-06] MEDS: allopurinoL 300 MG TABLET PO SCH (08:58)
[2020-05-06] MEDS ORDERED: ceFAZolin 2,000 MG in PREMIX 1 EACH IV ONE (09:00)
[2020-05-06] MEDS ORDERED: ROPIVACAINE 0.5% 30 ML VIAL ONE (11:17)
[2020-05-06] MEDS ORDERED: KETAMINE 500 MG/10 ML VIAL ONE (11:27)
[2020-05-06] MEDS ORDERED: LIDOCAINE 2% 5 ML VIAL ONE (11:27)
[2020-05-06] MEDS ORDERED: fentaNYL 100 MCG/2 ML VIAL ONE (11:27)
[2020-05-06] MEDS ORDERED: propofoL 200 MG/20 ML VIAL IV ONE (11:27)
[2020-05-06] MEDS ORDERED: MIDAZOLAM 2 MG/2 ML VIAL ONE (11:27)
[2020-05-06] MEDS ORDERED: TISSUE ADHESIVE 1 EACH APPLICATOR TOP ONE (12:18)
[2020-05-06 13:53] VITALS: BP 160/64
== END 2020-05-06 15:12 | disposition home or self-care (01) ==
LOC: N.ED 10:57 → EDBD 10:57 → EDUNIT# 10:57 → N.EDINP 15:17 → INTOOBSV 15:17 → SUATTDRO 15:17 → N.3E 17:08
PROVIDERS: ADMIT Internal Medicine; ATTEND Internal Medicine